=== PATIENT | female | born 1940 | race Caucasian/White ===

== ENCOUNTER 2018-01-25 10:13 | Inpatient (IN) | payer MEDICARE, SELFPAY ==
[2018-01-11 13:10] VITALS: BP 116/74; PULSE 63; RESP 14; TEMP 36.2; O2SAT 97; BMI 26.2
[2018-01-11 14:58] LABS: Absolute Lymphocyte Count 1.06 X10^3/ul (0.83-4.51); Absolute Neutrophil Count 2.6 X10^3/uL (2.0-7.7); Basophil# 0.02 X10^3/uL; Basophil% 0.5 % (0-1); Eosinophil# 0.11 X10^3/uL; Eosinophils% 2.7 % (0-5); Hematocrit 41.8 % (37-47); Hemoglobin 13.6 g/dl (12.0-15.0); Lymphocyte # 1.06 X10^3/ul (4.0); Lymphocyte % 26.2 % (19-41); Mean Corp Hgb Conc 32.5 g/gl (32-36); Mean Corpuscular Hgb 30.2 pg (27.0-32.0); Mean Corpuscular Volume 92.7 fL (81-99); Mean Platelet Vol. 9.9 fl (6.2-12.0); Monocyte# 0.26 X10^3/uL; Monocyte% 6.4 % (0-10); Neutrophil % 64.2 % (47-70); Platelet Count 204 K/mm3 (150-450); RBC Distribution Width CV 14.5 % (11.6-14.6); RBC Distribution Width SD 48.8 fl (35.1-43.9); Red Blood Count 4.51 M/mm3 (4.2-5.4); White Blood Count 4.1 K/mm3 (4.4-11.0)
[2018-01-11 15:02] LABS: POSITIVE COUNT NO; POSITIVE DIFFERENTIAL NO; POSITIVE MORPHOLOGY NO
[2018-01-11 15:29] LABS: Anion Gap 4 (5-15); BUN 15 mg/dL (7-18); BUN/Creat Ratio 18.4 RATIO (10-20); Calcium,Total 8.7 mg/dL (8.5-10.1); Chloride 104 mmol/L (98-107); Creatinine, Serum 0.81 mg/dL (0.55-1.02); EST Glomerular Filtration Rate 72 mL/min (>60); Est Glom Filt Rate - Afr Amer 87 mL/min (>60); Estimated Creatinine Clearance 49.43 ml/min; Glucose 83 mg/dL (74-106); Potassium 4.1 mmol/L (3.5-5.1); Sodium Level 139 mmol/L (136-145)
--- NOTE | 2018-01-11 15:39 | SDCEKG_ITS ---
Test Reason : Blood Pressure : / mmHG Vent. Rate : 061 BPM Atrial Rate : 060 BPM P-R Int : 000 ms QRS Dur : 128 ms QT Int : 428 ms P-R-T Axes : 000 110 012 degrees QTc Int : 430 ms Atrial fibrillation Right bundle branch block Abnormal ECG When compared with ECG of 27-MAR-2012 04:53, Atrial fibrillation has replaced Sinus rhythm Right bundle branch block is now Present Confirmed by BELKYS RIOS, WADE ([id number]), film editor AUDREY MAS ([id number]) on 01/13/2018 10:12:40 AM Referred By: Harshad Emerson Confirmed By:WADE RIZVI MD
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
[2018-01-25] VITALS (25 sets, daily range): BP systolic 73–106; BP diastolic 49–78; PULSE 54–78; RESP 16–18; TEMP 36.1–36.8; O2SAT 94–100; BMI 26.2; BMI 25.9
[2018-01-25 10:50] LABS: Prothrombin Time Fingerstick 11.9 SEC (11.9-14.4)
[2018-01-25] MEDS: Acetaminophen 500 MG Tablet 1000 MG PO ×2 (11:08→20:49)
[2018-01-25] MEDS: Lactated Ringers 1,000 ML 999 ML IV (12:03)
[2018-01-25] MEDS: Cefazolin 2 GM in 0.9% Normal Saline 100 ML IV (12:35)
--- NOTE | 2018-01-25 12:46 | RAD_ITS ---
STUDY: X-RAY - PELVIS AND RIGHT HIP REASON FOR EXAM: Female, 77 years old. TECHNIQUE: Radiological exam, hip, unilateral, 1 view. Fluoroscopy: 1 image 14.1 mGy 14.1 sec . COMPARISON: None. FINDINGS: There is a non-specific bowel gas pattern. Normal visualized soft tissue structures. Right hip arthroplasty in good alignment. There is no evidence of fracture. RAD/Hip 1 view with Pelvis IMPRESSION: Right hip arthroplasty in good alignment. Electronically Signed: León Sandoval MD at 7:08 EDT Tel , Service support ,
--- NOTE | 2018-01-25 13:59 | OP.PCM_ITS ---
Report of Operation Date of Procedure: 01/25/18 Pre-Operative Diagnosis: Right hip primary osteoarthritis Post-Operative Diagnosis: Right hip primary osteoarthritis Surgery/Procedure Performed:: Right direct anterior total hip replacement Description of Surgical Findings:: Stable hip with equal leg length merchant banker: Jacob Walker Type of Anesthesia:: Spinal Anesthesiologist: Ernesto Steel Special Medications: 2 g Ancef, 1 g TXA at incision, 1 g TXA closure, 10 mg Decadron, joint cocktail (5 mg Duramorph, 30 mL of 0.5% Ropivicaine, 1000 units of epinephrine, 30 mg of Toradol) Specimen's removed: Bone cuts Estimated Blood Loss (mL): 300 Fluids Replaced: 1200 mL crystalloid Description of Procedure: Components used: 1. Accolade 2 [place] femoral stem size 5 127? 2. Alvin trident acetabular shell size 54 mm 3. Alvin X3 polyethylene E 4. [place] Biolox delta 36mm, -5mm femoral head Brief history operative indications: 77 yo f who failed conservative measures for their hip osteoarthritis. X-rays were consistent with osteoarthritis including joint space narrowing, osteophyte formation and subchondral cysts. Total hip replacement was discussed with the patient with risks and benefits including but not limited to blood loss, DVTs, PEs, neurovascular damage, dislocation, general risks of anesthesia including loss of life. Patient demonstrated an understanding medical clearance is obtained the patient was consented for surgery. Procedure: On the date of procedure the patient's R hip was marked in the preoperative area. Patient was then taken back to the operating room where anesthesia assumed control of the C-spine and airway and administered anesthetic. Patient was transferred to the operating table and placed in the supine position. The hips were placed at the break of the bed and a sacral bump was placed. The R lower extremity was then prepped out in a sterile fashion using chlorhexidine while the surgeon scrubbed. The PA was vital in the positioning of the patient. Upon reentering the room the R lower extremity was draped in the standard orthopedic fashion and the incision was marked. A timeout was called and everyone agreed upon the side, the site, the procedure be performed, antibody given, and patient's identity. At this time incision was made through skin, subcutaneous tissue, and fat down to fascia. The fascia was then incised and the TFL was retracted laterally. A retractor was placed on the lateral border of the femoral neck. Attention was directed to the inferior portion of the approach and all crossing vessels were identified and appropriately coagulated. A retractor was then placed on the medial portion of the femoral neck. The anterior capsule was then cleared of all soft tissue and then H shaped capsulotomy was made. The retractors were then placed inside the capsule. The femoral neck was identified and a cleanup cut was made. At this time a power corkscrew was used to remove the femoral head. Attention was then turned toward the acetabulum where the soft tissues were appropriately retracted and the acetabulum was sequentially reamed to 53 mm. A 54 mm cup was then selected and impacted into place. 2 screws were placed orthogonally. Acetabular liner was impacted into place and locking mechanism was verified. The position of the acetabular cup was then verified under live fluoroscopy. Attention was then turned to the femur. Soft tissue releases on the medial and lateral femoral neck were appropriately done, the leg was externally rotated and lateralized. A [place] retractor was placed medially and proximally to the greater trochanter this allowed appropriate visualization and exposure of the femoral canal. [place] was then used to remove excess lateral bone. A canal finder and entry broach were used to open the proximal canal. Once we verified we were down the femoral canal we subsequently broached up to a size 4 femur. The appropriate neck was placed in the previously selected head was trialed with a -5 mm neck. Traction was pulled and the hip was reduced with internal rotation. Once it was appropriately reduced and stability was checked. There was minimal shuck, equal leg lengths and appropriate stability with hyperextension and external rotation as well as with 90? flexion and internal rotation. Fluoroscopy was then also used to verify the position of the components and leg lengths using the contralateral side for comparison. The trial components were then dislocated the proximal femur was again exposed and the components were removed from the wound. The final components were verified and opened. The wound was copiously irrigated out with normal saline. The acetabulum was checked for any residual debris. The final components were placed and impacted. Traction and internal rotation were again used to reduce the hip. After adequate reduction the hip remained stable with appropriate leg lengths. The final components were once again checked with live fluoroscopy and were found to be satisfactory. The wound was then copiously irrigated with normal saline once more, and hemostasis was obtained. Closure was then done using #1 Vicryl runner to close the fascia. A 2-0 vicryl interuppted sutures were used to close the subcutaneous skin. A 3-0 Monocryl and Steri-Strips were used for final skin closure. A Silverlon dressing was placed. Patient was awakened by anesthesia and transferred to the [facility]. Patient was then transferred to the PACU for recovery. Postoperative plan: Patient will get 24 hours postop antibiotics. Patient will get in-house physical therapy and will be weight-bear as tolerated. Patient will follow up in office in 2 weeks for a wound check and x-rays. Patient will restart Coumadin on postop day 1 During the course of the procedure the physician senior office support assistant sosa played a vital role. His intimate knowledge of my steps in the procedure aided in safe and expedient completion of the procedure. The PA played a vital rolls in positioning particularly in obtaining the appropriate positioning of the sacral bump. The PA was also vital in the retraction of soft tissues during the exposure and especially the femoral work as this is a vital part of the procedure to prevent complications and fractures. The PA was also vital and protecting soft tissues during times of bony cuts and reaming. He also played a vital role in closure with my direct supervision. The PA was also important during reduction and dislocation of the joint and trials intraoperatively. Grafts/Implants Used: Alvin Accolade 2 - Complications none - Admit VTE Documentation VTE Present on Admission: No VTE Mechan Device Prophylaxis: SCD's, Thigh High CAN Hose VTE Pharm Prophylaxis ordered?: Yes
--- NOTE | 2018-01-25 14:36 | RAD_ITS ---
STUDY: X-RAY - PELVIS AND RIGHT HIP REASON FOR EXAM: Female, 77 years old. Postoperative TECHNIQUE: Radiological exam, hip, unilateral, with pelvis when performed; 2 or 3 views. COMPARISON: None FINDINGS: Right total hip arthroplasty. The prosthetic components appear to be normally seated and articulated with expected postsurgical changes in the surrounding soft tissues. There are no significant degenerative changes of the left hip joint. Chronic appearing deformity of the left pubic rami. RAD/Hip Min 2 Views (Portable) IMPRESSION: Appropriate postsurgical features of right hip arthroplasty. Correlate operative technique. Electronically Signed: Lito Wright, at 15:07 EDT Tel , Service support ,
[2018-01-25] MEDS: Scopolamine 1mg/72hr Patch 1 PATCH TD (14:38)
--- NOTE | 2018-01-25 14:50 | SUR.PHASEI ---
Addendum entered by Angelique Baltazar 01/25/18 14:52: AT 1435 IN PACU, CONTINUE IVF BOLUS, PLACED IN [place], DR KAMERON VERGARA AT BEDSIDE, CONTINUE TO MONITOR. Original Note: AT 1417 ON ARRIVAL TO PACU, SBP 70'S SUSTAINED, REMAINS IN AFIB IN 60-70'S. MAC/SPINAL, UNABLE TO MOVE LEGS, HAS SENSATION ABOVE HIPS. DENIES CHEST PAIN OR HEAVINESS, SOB, OTHER C/O. IV FLUID BOLUS PER DR BLANCO ORDERS. CLAUDIA GUTIERREZ, NUT PROCESS HELPER, CALLED DR KAMERON VERGARA TO NOTIFY WHO REPORTED STATES TO CONTINUE IVF BOLUS AND HE WILL COME TO PACU TO EVAL.
[2018-01-25] MEDS: Calcium Carb/Vitamin D 1 TABLET Tablet PO (17:00)
[2018-01-25] MEDS: MELATONIN 3 MG TABLET PO (20:49)
[2018-01-25] MEDS: Senna/Docusate Sodium 1 Tablet 2 TABLET PO (20:49)
[2018-01-25] MEDS: Cefazolin 1 GM/50 ML BAG IV (20:49)
[2018-01-25] MEDS: Metoprolol Tartrate 25 MG Tablet 12.5 MG PO (20:53)
[2018-01-25] MEDS: Lactated Ringers 1,000 ML 125 ML IV (20:59)
[2018-01-26 02:40] VITALS: BP 102/64; PULSE 82; RESP 18; TEMP 36.6; O2SAT 95
[2018-01-26] MEDS: Ketorolac 15 MG/ML Vial IV ×3 (02:54→22:32)
[2018-01-26] MEDS: Acetaminophen 500 MG Tablet 1000 MG PO ×3 (05:13→22:32)
[2018-01-26] MEDS: Cefazolin 1 GM/50 ML BAG IV (05:15)
[2018-01-26 06:55] LABS: Hematocrit 33.4 % (37-47); Hemoglobin 10.8 g/dl (12.0-15.0); Mean Corp Hgb Conc 32.3 g/gl (32-36); Mean Corpuscular Hgb 30.2 pg (27.0-32.0); Mean Corpuscular Volume 93.3 fL (81-99); Mean Platelet Vol. 9.8 fl (6.2-12.0); Platelet Count 152 K/mm3 (150-450); RBC Distribution Width CV 14.2 % (11.6-14.6); RBC Distribution Width SD 48.4 fl (35.1-43.9); Red Blood Count 3.58 M/mm3 (4.2-5.4); White Blood Count 4.2 K/mm3 (4.4-11.0)
[2018-01-26 07:13] LABS: Scan Indicated on CBC? Y/N NO
[2018-01-26 07:32] LABS: Anion Gap 6 (5-15); BUN 11 mg/dL (7-18); BUN/Creat Ratio 16.7 RATIO (10-20); Chloride 106 mmol/L (98-107); Creatinine, Serum 0.66 mg/dL (0.55-1.02); EST Glomerular Filtration Rate 92 mL/min (>60); Est Glom Filt Rate - Afr Amer 111 mL/min (>60); Estimated Creatinine Clearance 40.04 ml/min; Glucose 100 mg/dL (74-106); Potassium 4.1 mmol/L (3.5-5.1); Sodium Level 141 mmol/L (136-145)
[2018-01-26] MEDS: Vitamin B Comp W-C Capsule 1 CAP PO (07:32)
[2018-01-26] MEDS: Cyanocobalamin 500 MCG Tablet 1000 MCG PO (07:32)
[2018-01-26] MEDS: Calcium Carb/Vitamin D 1 TABLET Tablet PO ×2 (07:32→17:54)
[2018-01-26] MEDS: Famotidine 20 MG Tablet PO (07:32)
[2018-01-26] MEDS: Multivitamins,Ther W-Minerals Tablet 1 TABLET PO (07:32)
[2018-01-26 08:25] VITALS: BP 105/55; PULSE 87; RESP 16; TEMP 37; O2SAT 95
--- NOTE | 2018-01-26 08:36 | PN.ORTHO_ITS ---
Subjective: The patient was sitting in bedside chair upon examination. Patient denies any chest pain, shortness of breath, dizziness, lightheadedness, nausea or vomiting , or calf pain. Pain is controlled on medications. No adverse overnight events. Overall patient is doing well. Patient does have concerns with going home due to living alone and having difficulty getting in and out of the bed. Patient has asked about going to rehab versus penitentiary facility. Objective: Vital signs stable and afebrile. Patient is able to plantarflex and dorsiflex actively. Sensation is intact to light touch to saphenous, sural, superficial and deep peroneal, and tibial distribution. Dressing is clean dry and intact. Negative Homans bilaterally, negative signs and symptoms of DVT. - Physical Exam General: Alert, Oriented x3, Cooperative, No apparent distress Vital Signs Temp Pulse Resp BP Pulse Ox 97.8 F 82 18 102/64 95 01/26/18 02:40 01/26/18 02:40 01/26/18 02:40 01/26/18 02:40 01/26/18 02:40 Oxygen Delivery Method CPAP Weight: 68.492 kg Body Mass Index (BMI) 25.9 Intake and Output for Last 24 Hours 01/24/18 01/25/18 01/26/18 23:59 23:59 23:59 Intake Total 4750 / 4750 1870 / 1870 Output Total 1240 / 1240 Balance 4750 / 4750 630 / 630 Laboratory Tests Past 24 Hrs 01/25/18 01/26/18 01/26/18 10:44 06:26 06:26 WBC 4.2 L RBC 3.58 L Hgb 10.8 L Hct 33.4 L MCV 93.3 MCH 30.2 MCHC 32.3 RDW 14.2 RDW Differential 48.4 H Plt Count 152 MPV 9.8 POC PT 11.9 INR 1.00 Sodium 141 Potassium 4.1 Chloride 106 Carbon Dioxide 29.0 Anion Gap 6 BUN 11 Creatinine 0.66 Estim Creat Clear Calc 40.04 Est GFR (MDRD) Af Amer 111 Est GFR (MDRD) Non-Af 92 BUN/Creatinine Ratio 16.7 Glucose 100 Calcium 8.0 L Medical Necessity - Tobacco Use Smoking Status: Never smoker Assessment/Plan All Active Problems (Last Updated 08/10/17 @ 10:36 by Estephania Francis) Positive colorectal cancer screening using Cologuard test (Acute) Left inguinal hernia (Acute) History of surgery on arm (Acute) Hx of umbilical hernia repair (Acute) History of repair of hiatal hernia (Acute) 1. S/P right total hip arthroplasty POD #1 2. Continue Pain Medications: Tylenol and tramadol 3. DVT Prophylaxis: Patient is placed back on her warfarin 4. PT/OT: Weightbearing as tolerated 5. H & H: 10.8/33.4, asymptomatic 6. Encouraged Incentive Spirometry 7. Disposition: Case management will be involved with possible placement at penitentiary facility versus rehab versus home discharge. Patient lives alone and has had difficulty and needing help getting in and out of bed.
--- NOTE | 2018-01-26 09:30 | CASEMGMT ---
DANNI ACEVEDO Face to Face with patient for initial transition planning/care coordination assessment. DANNI ACEVEDO introduced self and role at [facility]. Patient lying in bed, alert and oriented. Patient states that she lives alone and is concerned when she goes home. Patient would like to discharge home by is will to go to SNF is necessary. Patient states that her first choice is [facility]. Patient states that if she is not accepted at [facility] she would like to go home with [facility] if she is able. DANNI ACEVEDO confirmed with insurance that [facility] is in network. Patient states she has no further needs or concerns at this time. DANNI ACEVEDO updated YADI Ramirez regarding request for placement and patient choice of [facility]. Disposition Plan: [facility] pending acceptance and precert.
[2018-01-26] MEDS: 0.9% NaCl Peripheral Flush Adult/Peds IV ×2 (12:05→22:32)
[2018-01-26 12:19] VITALS: BP 122/76; PULSE 74
--- NOTE | 2018-01-26 13:00 | CASEMGMT ---
YADI faxed a referral to [facility]. Lelo HENDERSON LEAD LAYING AND GLUING MACHINE OPERATOR
[2018-01-26 14:20] VITALS: BP 116/64; PULSE 84; RESP 16; TEMP 36.4; O2SAT 98
[2018-01-26] MEDS: Senna/Docusate Sodium 1 Tablet 2 TABLET PO (14:29)
--- NOTE | 2018-01-26 14:42 | CASEMGMT ---
Social Work Note SW received message from Geena at [facility] informing this worker that they are able to accept pt. YADI placed a call to Geena and informed her to begin pre-cert as pt should be ready for discharge tomorrow. Geena states that she will submit pre-cert. Plan: Discharge to [facility] pending pre-cert Cheryle Ramirez GENERAL FARMWORKER, SAW TAILER
[2018-01-26 20:30] VITALS: BP 125/65; PULSE 87; RESP 18; TEMP 36.8; O2SAT 97
[2018-01-26 22:32] VITALS: PULSE 87
[2018-01-26] MEDS: Metoprolol Tartrate 25 MG Tablet 12.5 MG PO (22:32)
[2018-01-26] MEDS: MELATONIN 3 MG TABLET PO (22:32)
--- NOTE | 2018-01-26 23:39 | PCM.DC.THR ---
Discharge Diet: No Restrictions Discharge Activity: May Not Drive - while taking narcotic pain medications. May shower in (days): 1 - turn dressing away from water Ice area for (Minutes): 20 - every 1-2 hours while awake Weight Bearing Status: Weight bearing as tolerated Elevate: Operative Extremity Additional Activity Instructions:: Wear elastic stockings for 2 weeks. DO NOT use alcohol with narcotic pain medication. DO NOT make important decisions while taking narcotic medication. If you have problems with taking your medication (rash, itching, nausea, etc.) call the office at once. Call your doctor if your incision/area has: Increased Pain/ Swelling, Increased Redness, Foul Smelling Discharge Call your doctor if you observe: Fever of 101 or Higher Remove Dressing in (days):: 3 - okay to remove on 01/30/18 Additional Instructions: follow [facility] post-op instructions Tylenol primary for pain control and use Tramadol for only breakthrough pain Allergies/Adverse Reactions: Allergies oxycodone Adverse Reaction (Verified 08/10/17 10:37) PASSING OUT phenazopyridine HCl [From Pyridium] Adverse Reaction (Verified 08/10/17 10:37) Upset Stomach Medications to take at Discharge Amino Acids-Magnesium Sulfate 1 tab PO QHS 01/05/16 Calcium Carbonate/Vitamin D3 [Calcium 600-Vit D3 400 Caplet] 1 ea PO BID 01/05/16 Cholecalciferol (Vitamin D3) [Vitamin D3] 50,000 unit PO CEDILLO 01/05/16 Fluocinonide 1 applic TP BID PRN 01/05/16 Lactobacillus Acidophilus [Acidophilus] 1 ea PO DAILY 01/05/16 Loperamide HCl/Simethicone [Imodium Multi-Symptom Rel Cplt] 2 ea PO QHS PRN 01/05/16 Metoprolol Tartrate [Lopressor (beta christy)] 12.5 mg PO QHS 01/05/16 Metoprolol Tartrate [Lopressor (beta christy)] 25 mg PO DAILY 01/05/16 Multivit-Min/FA/Lycopen/Lutein [Centrum Silver Tablet] 1 ea PO DAILY 01/05/16 Warfarin [Coumadin] 3 mg PO QODAY 01/05/16 Warfarin [Coumadin] 4 mg PO QODAY 01/05/16 B Complex with Vitamin C [Vitamin B-Complex with Vit C] 1 ea PO DAILY 07/27/17 Cyanocobalamin (Vitamin B-12) [Vitamin B-12] 1,000 mcg SL DAILY 07/27/17 Famotidine/Ca Carb/Mag Hydrox [Pepcid Complete Tablet Chew] 1 each PO DAILY 01/11/18 Melatonin 3 mg PO QHS 01/11/18 Acetaminophen [Tylenol] 1,000 mg PO Q8 #90 tab 01/27/18 Clobetasol Propionate [Temovate Ointment] 1 applic TOPICAL BID PRN tube 01/27/18 Senna/Docusate Sodium [Senokot-S] 2 tab PO BID #20 tab 01/27/18 traMADol [Ultram] 50 - 100 mg PO Q6H PRN PRN 7 Days #60 tab 01/27/18 The following prescriptions were given: traMADol [Ultram] 50 - 100 mg PO Q6H PRN PRN 7 Days #60 tab PRN Reason: Mod-Severe Pain (4-04/26) Acetaminophen [Tylenol] 1,000 mg PO Q8 #90 tab Senna/Docusate Sodium [Senokot-S] 2 tab PO BID #20 tab Primary Care Physician: Lucian Izquierdo MD [Primary Care Provider] - Test Results: Test results from this visit will be discussed in further detail at your follow-up appointment, if applicable. Please Follow Up With: Jacob Walker PA-C When: 02/08/18 @ 9:15 am Please Follow Up With: Physical Therapy When: will need to schedule home health or out patient physical therapy
[2018-01-27 02:41] VITALS: BP 101/60; PULSE 75; RESP 16; TEMP 36.6; O2SAT 96
[2018-01-27] MEDS: Acetaminophen 500 MG Tablet 1000 MG PO ×2 (05:17→14:28)
[2018-01-27 06:23] LABS: Hematocrit 32.2 % (37-47); Hemoglobin 10.6 g/dl (12.0-15.0); Mean Corp Hgb Conc 32.9 g/gl (32-36); Mean Corpuscular Hgb 30.6 pg (27.0-32.0); Mean Corpuscular Volume 93.1 fL (81-99); Mean Platelet Vol. 9.9 fl (6.2-12.0); Platelet Count 150 K/mm3 (150-450); RBC Distribution Width CV 13.9 % (11.6-14.6); Red Blood Count 3.46 M/mm3 (4.2-5.4); White Blood Count 5.1 K/mm3 (4.4-11.0)
[2018-01-27 06:28] LABS: Scan Indicated on CBC? Y/N NO
--- NOTE | 2018-01-27 06:53 | PCM.PN.ORT ---
Subjective: The patient was sitting in bed upon examination. Patient denies any chest pain, shortness of breath, dizziness, lightheadedness, nausea or vomiting, or calf pain. Pain is controlled on medications. No adverse overnight events. Overall patient is doing very well. Patient is now wishing to try to go home. She states her daughter will be present with her until next Tuesday. She also states she has someone to help take her to appointments.. Objective: Vital signs stable and afebrile. Patient is able to plantarflex and dorsiflex actively. Sensation is intact to light touch to saphenous, sural, superficial and deep peroneal, and tibial distribution. Dressing is clean dry and intact. Negative Homans bilaterally, negative signs and symptoms of DVT. - Physical Exam General: Alert, Oriented x3, Cooperative, No apparent distress Vital Signs Temp Pulse Resp BP Pulse Ox 97.9 F 75 16 101/60 96 01/27/18 02:41 01/27/18 02:41 01/27/18 02:41 01/27/18 02:41 01/27/18 02:41 Oxygen Delivery Method CPAP Weight: 68.492 kg Body Mass Index (BMI) 25.9 Intake and Output for Last 24 Hours 01/25/18 01/26/18 01/27/18 23:59 23:59 23:59 Intake Total 4750 / 4750 2620 / 2620 1100 / 1100 Output Total 1940 / 1940 Balance 4750 / 4750 680 / 680 1100 / 1100 Laboratory Tests Past 24 Hrs 01/26/18 01/26/18 01/27/18 06:26 06:26 05:50 WBC 4.2 L 5.1 RBC 3.58 L 3.46 L Hgb 10.8 L 10.6 L Hct 33.4 L 32.2 L MCV 93.3 93.1 MCH 30.2 30.6 MCHC 32.3 32.9 RDW 14.2 13.9 RDW Differential 48.4 H 46.0 H Plt Count 152 150 MPV 9.8 9.9 Sodium 141 Potassium 4.1 Chloride 106 Carbon Dioxide 29.0 Anion Gap 6 BUN 11 Creatinine 0.66 Estim Creat Clear Calc 40.04 Est GFR (MDRD) Af Amer 111 Est GFR (MDRD) Non-Af 92 BUN/Creatinine Ratio 16.7 Glucose 100 Calcium 8.0 L Medical Necessity - Tobacco Use Smoking Status: Never smoker Assessment/Plan All Active Problems (Last Updated 08/10/17 @ 10:36 by Estephania Francis) Positive colorectal cancer screening using Cologuard test (Acute) Left inguinal hernia (Acute) History of surgery on arm (Acute) Hx of umbilical hernia repair (Acute) History of repair of hiatal hernia (Acute) 1. S/P right total hip arthroplasty POD #2 2. Continue Pain Medications: Tylenol and tramadol 3. DVT Prophylaxis: Patient is placed back on her warfarin, will need to follow-up with primary care physician to continue with INR check. 4. PT/OT: Weightbearing as tolerated 5. H & H: 10.6/32.2, asymptomatic 6. Encouraged Incentive Spirometry 7. Disposition: Orthopedically stable, plan is for discharge home today. Patient initially wanted to go to long-term facility but she has been doing very well with physical therapy and pain is well controlled. She now wishes to go home. I will have case management set up home health therapy versus outpatient physical therapy. Patient states she does have someone to help take her to appointments. Patient was instructed to contact her primary care physician and who manages her Coumadin. She should have her INR checked early next week.
--- NOTE | 2018-01-27 06:56 | PN.ORTHO_ITS ---
Subjective: The patient was sitting in bed upon examination. Patient denies any chest pain , shortness of breath, dizziness, lightheadedness, nausea or vomiting, or calf pain. Pain is controlled on medications. No adverse overnight events. Overall patient is doing very well. Patient is now wishing to try to go home. She states her daughter will be present with her until next Tuesday. She also states she has someone to help take her to appointments.. Objective: Vital signs stable and afebrile. Patient is able to plantarflex and dorsiflex actively. Sensation is intact to light touch to saphenous, sural, superficial and deep peroneal, and tibial distribution. Dressing is clean dry and intact. Negative Homans bilaterally, negative signs and symptoms of DVT. - Physical Exam General: Alert, Oriented x3, Cooperative, No apparent distress Vital Signs Temp Pulse Resp BP Pulse Ox 97.9 F 75 16 101/60 96 01/27/18 02:41 01/27/18 02:41 01/27/18 02:41 01/27/18 02:41 01/27/18 02:41 Oxygen Delivery Method CPAP Weight: 68.492 kg Body Mass Index (BMI) 25.9 Intake and Output for Last 24 Hours 01/25/18 01/26/18 01/27/18 23:59 23:59 23:59 Intake Total 4750 / 4750 2620 / 2620 1100 / 1100 Output Total 1940 / 1940 Balance 4750 / 4750 680 / 680 1100 / 1100 Laboratory Tests Past 24 Hrs 01/26/18 01/26/18 01/27/18 06:26 06:26 05:50 WBC 4.2 L 5.1 RBC 3.58 L 3.46 L Hgb 10.8 L 10.6 L Hct 33.4 L 32.2 L MCV 93.3 93.1 MCH 30.2 30.6 MCHC 32.3 32.9 RDW 14.2 13.9 RDW Differential 48.4 H 46.0 H Plt Count 152 150 MPV 9.8 9.9 Sodium 141 Potassium 4.1 Chloride 106 Carbon Dioxide 29.0 Anion Gap 6 BUN 11 Creatinine 0.66 Estim Creat Clear Calc 40.04 Est GFR (MDRD) Af Amer 111 Est GFR (MDRD) Non-Af 92 BUN/Creatinine Ratio 16.7 Glucose 100 Calcium 8.0 L Medical Necessity - Tobacco Use Smoking Status: Never smoker Assessment/Plan All Active Problems (Last Updated 08/10/17 @ 10:36 by Estephania Francis) Positive colorectal cancer screening using Cologuard test (Acute) Left inguinal hernia (Acute) History of surgery on arm (Acute) Hx of umbilical hernia repair (Acute) History of repair of hiatal hernia (Acute) 1. S/P right total hip arthroplasty POD #2 2. Continue Pain Medications: Tylenol and tramadol 3. DVT Prophylaxis: Patient is placed back on her warfarin, will need to follow -up with primary care physician to continue with INR check. 4. PT/OT: Weightbearing as tolerated 5. H & H: 10.6/32.2, asymptomatic 6. Encouraged Incentive Spirometry 7. Disposition: Orthopedically stable, plan is for discharge home today. Patient initially wanted to go to alf facility but she has been doing very well with physical therapy and pain is well controlled. She now wishes to go home. I will have case management set up home health therapy versus outpatient physical therapy. Patient states she does have someone to help take her to appointments. Patient was instructed to contact her primary care physician and who manages her Coumadin. She should have her INR checked early next week.
[2018-01-27] MEDS: Vitamin B Comp W-C Capsule 1 CAP PO (08:32)
[2018-01-27] MEDS: Multivitamins,Ther W-Minerals Tablet 1 TABLET PO (08:33)
[2018-01-27] MEDS: Calcium Carb/Vitamin D 1 TABLET Tablet PO (08:33)
[2018-01-27] MEDS: Cyanocobalamin 500 MCG Tablet 1000 MCG PO (08:33)
[2018-01-27 08:34] VITALS: BP 106/52; PULSE 67
[2018-01-27] MEDS: Metoprolol Tartrate 25 MG Tablet PO (08:34)
[2018-01-27] MEDS: Famotidine 20 MG Tablet PO (08:37)
[2018-01-27 08:38] VITALS: BP 106/57; PULSE 67; RESP 18; TEMP 37.1; O2SAT 95
[2018-01-27 10:00] VITALS: BP 121/66; PULSE 80; RESP 18; TEMP 36.7; O2SAT 95
--- NOTE | 2018-01-27 10:08 | CASEMGMT ---
DANNI ACEVEDO notified that patient is wishing to discharge home with C. DANNI ACEVEDO spoke with patient and patient wishes to have HHC through [facility]. DANNI ACEVEDO made referral to [facility]. DANNI ACEVEDO will continue to follow this patient and plan for a safe discharge.
--- NOTE | 2018-01-27 10:39 | CASEMGMT ---
Social Work Note RN KRISTINA Jackson informed this worker that pt will be discharged home with HHC. SW placed a call to Geena Santillan at [facility] and updated her that pt will be discharged home with HHC. Shasta states understanding. Plan: Pt to discharge home with HHC Cheryle Ramirez CLINICAL NURSE, TUBE BENDER
== END 2018-01-27 14:31 | disposition home health service (06) | DRG 470 ==
LOC: ACINP 10:13 → MS3 13:34
PROVIDERS: Admitting Provider Specialist; Family Provider Family Medicine; PCP Family Medicine; Visit Provider Specialist
PROC: 0SR904A Replacement of Right Hip Joint with Ceramic on Polyethylene Synthetic Substitute, Uncemented, Open Approach (ICD-10-PCS; CPT 27284; principal; 2018-01-25 12:35)
DX: M16.11 Unilateral primary osteoarthritis, right hip (principal); G47.30 Sleep apnea, unspecified; I34.1 Nonrheumatic mitral (valve) prolapse; E78.00 Pure hypercholesterolemia, unspecified; K21.9 Gastro-esophageal reflux disease without esophagitis; I10 Essential (primary) hypertension; I48.2 Chronic atrial fibrillation; Z79.01 Long term (current) use of anticoagulants
CPT/HCPCS: 36415; 36416; 73501; 73502; 76000; 80048; 85025; 85027; 85610; 87081; 93005; 97116; 97162; 97165; 97530; 97535; 99251; C1776; J7120; A4216; G0463

== ENCOUNTER → 2018-08-10 15:05 | Outpatient (CLI) | payer MEDICARE, SELFPAY ==
[2018-01-25 16:40] VITALS: BMI 25.9
[2018-08-10 17:36] LABS: Absolute Lymphocyte Count 0.99 X10^3/ul (0.83-4.51); Absolute Neutrophil Count 3.3 X10^3/uL (2.0-7.7); Basophil# 0.02 X10^3/uL; Basophil% 0.4 % (0-1); Eosinophil# 0.12 X10^3/uL; Eosinophils% 2.5 % (0-5); Hematocrit 43.6 % (37-47); Hemoglobin 14.3 g/dl (12.0-15.0); Lymphocyte # 0.99 X10^3/ul (4.0); Lymphocyte % 20.8 % (19-41); Mean Corp Hgb Conc 32.8 g/gl (32-36); Mean Corpuscular Hgb 30.2 pg (27.0-32.0); Mean Corpuscular Volume 92.2 fL (81-99); Mean Platelet Vol. 10.4 fl (6.2-12.0); Monocyte# 0.37 X10^3/uL; Monocyte% 7.8 % (0-10); Neutrophil # 3.26 X10^3/uL (2.7-7.7); Neutrophil % 68.3 % (47-70); Platelet Count 217 K/mm3 (150-450); RBC Distribution Width SD 49.6 fl (35.1-43.9); Red Blood Count 4.73 M/mm3 (4.2-5.4); White Blood Count 4.8 K/mm3 (4.4-11.0)
[2018-08-10 17:43] LABS: POSITIVE COUNT NO; POSITIVE DIFFERENTIAL NO; POSITIVE MORPHOLOGY NO
[2018-08-10 18:08] LABS: ALB/GLOB Ratio 1.2 RATIO (0.9-2.4); AST(SGOT) 17 U/L (15-37); Alanine Aminotransfer ALT/SGPT 26 U/L (13-56); Albumin, Serum 3.6 g/dL (3.2-5.0); Alkaline Phosphatase 71 U/L (45-117); Anion Gap 10 (5-15); BUN 17 mg/dL (7-18); BUN/Creat Ratio 19.7 RATIO (10-20); Chloride 102 mmol/L (98-107); Creatinine, Serum 0.86 mg/dL (0.55-1.02); EST Glomerular Filtration Rate 68 mL/min (>60); Est Glom Filt Rate - Afr Amer 82 mL/min (>60); Globulin 3.1 g/dL (2.2-4.2); Glucose 85 mg/dL (74-106); Potassium 4.2 mmol/L (3.5-5.1); Protein, Total 6.7 g/dL (6.4-8.2); Sodium Level 141 mmol/L (136-145); Thyroid Stim Hormone (TSH) 1.64 uIU/mL (0.358-3.74)
[2018-08-10 18:44] LABS: PTHIN 37.4 pg/mL (18.4-80.1)
== END ==
PROVIDERS: Family Provider Family Medicine; PCP Family Medicine; Visit Provider Family Medicine
DX: M85.80 Other specified disorders of bone density and structure, unspecified site (principal)
CPT/HCPCS: 36415; 80053; 83970; 84443; 85025

== ENCOUNTER → 2018-09-27 09:53 | Outpatient (CLI) | payer MEDICARE, SELFPAY ==
[2018-01-25 16:40] VITALS: BMI 25.9
--- NOTE | 2018-09-27 09:56 | ART_ITS ---
Reason For Study: PAD Procedure A bilateral lower extremity continuous wave Doppler with analog waveform analysis and ankle brachial indexes. Left Segmental Pressures Left brachial= 103mmHg. Left posterior tibial artery = 128mmHg. Left dorsalis pedis artery = 128mmHg. The left dorsalis pedis waveforms are triphasic. The left posterior tibial artery waveforms are triphasic. Right Segmental Pressures Right brachial= 121mmHg. Right posterior tibial artery = 134mmHg. Right dorsalis pedis artery = 127mmHg. The right dorsalis pedis waveforms are triphasic. The right posterior tibial artery waveforms are triphasic. Indices The right ankle brachial index by the dorsalis pedis is 1.1. The right ankle brachial index by the posterior tibial artery is 1.1. The right ankle brachial index by the posterior tibial artery post exercise is 1.1. The left ankle brachial index by the dorsalis pedis is 1.1. The left ankle brachial index by the posterior tibial artery is 1.1. The left posterior tibial artery index post exercise is 1.1. Interpretation Summary Triphasic Doppler waveforms are noted at ankle level bilaterally. Resting ankle-brachial indices are normal bilaterally. Following a 5-minute period of ambulation on a treadmill at 2 MPH and a 5% grade, which was well tolerated, ankle pressures augmented bilaterally, which is a normal physiological response. There is no evidence of significant atherosclerotic peripheral arterial occlusive disease in the lower extremities bilaterally based upon this resting and exercise arterial study. Ordering Physician: Lucian Izquierdo Referring Physician: Lucian Izquierdo Performed By: Ruth Howell [facility]
--- NOTE | 2018-09-27 11:14 | BD_ITS ---
STUDY: DUAL ENERGY X-RAY ABSORPTIOMETRY / DXA REASON FOR EXAM: Female, 77 years old. Early menopause. Loss of height. TECHNIQUE: Bone Mineral Density (BMD) measurements of lumbar spine and left hip were obtained. The patient is status post right hip replacement. COMPARISON: None. FINDINGS: Lumbar Spine (L1-L4): g/cm2 (0.936) / T-score (-2.2) / Z-score (-0.4) Findings are suggestive of osteopenia with a high fracture risk. Left Femur Total: g/cm2 (0.849) / T-score (-1.3) / Z-score (0.7) Left Femoral Neck: g/cm2 (0.742) / T-score (-2.1) / Z-score (0.0) BD/Dexa Bone Density Study IMPRESSION: The patient is considered osteopenic as outlined below according to World Dejon Organization (WHO) criteria with a high fracture risk. Reference Information: The T-score is the number of standard deviations above or below the standard which is normal for young adults at their peak bone mineral density. The World Health Organization (WHO) interprets the T-scores as follows: Above -1 Normal bone density Between -1 and -2.5 Osteopenia Equal to / or below -2.5 Osteoporosis As a practical clinical guideline, osteopenia may be graded as follows: Mild -1 through -1.5 Moderate -1.6 through -2.0 Severe -2.1 through -2.4 The Z-score is the number of standard deviations above or below age-matched controls. A Z-score of less than -1.5 would be considered abnormal. References: 1. NIH Osteoporosis and Related Bone Diseases http://www.osteo.org 2. International Society for Clinical Densitometry http://www.iscd.org 3. National Osteoporosis Foundation http://www.nof.org Electronically Signed: Wilver Ann, at 10:21 EDT , Service support ,
--- NOTE | 2018-09-27 11:16 | BI_ITS ---
MAMMOGRAPHY - BILATERAL SCREENING REASON FOR EXAM: Female, 77 years old. Routine annual screening examination. PERTINENT HISTORY: Non-contributory. TECHNIQUE: Digital bilateral breast nando (3D mammographic acquisition) in the CC and MLO projections. 2-D mediolateral oblique (MLO) and craniocaudad (CC) views of both breasts were obtained. CAD: Full Field Digital Mammography with Computer Added Detection was performed. COMPARISON: Comparison is made with prior outside examination dated March 26, 2014. FINDINGS: Breast Composition: The breasts are heterogeneously dense, which may obscure small masses. There are no dominant masses or suspicious calcifications. Stable 4.5 mm well-defined nodular density seen in the anterior lateral aspect of the right breast. This may represent a small cyst. No other significant abnormalities are identified. There has been no significant change since the prior study. BI/SCREENING MAMM (CAD), BILAT IMPRESSION: Stable bilateral screening mammogram. Yearly follow-up mammogram recommended. (A) ASSESSMENT CATEGORY: BIRADS Category 2: Benign. A letter regarding these results will be sent to the patient by the facility within 30 days. Approximately 10% of breast cancers are not detected by mammography. A normal mammogram should not delay biopsy of a clinically suspicious abnormality. [id number] Electronically Signed: Wilver Ann, at 14:24 EDT , Service support ,
== END ==
PROVIDERS: Family Provider Family Medicine; PCP Family Medicine; Referring Provider Family Medicine; Visit Provider Family Medicine
DX: I73.9 Peripheral vascular disease, unspecified (principal); M85.80 Other specified disorders of bone density and structure, unspecified site; Z12.31 Encounter for screening mammogram for malignant neoplasm of breast; Z78.0 Asymptomatic menopausal state
CPT/HCPCS: 77063; 77067; 77080; 93922

== ENCOUNTER → 2019-04-25 06:53 | Outpatient (CLI) | payer MEDICARE, SELFPAY ==
[2019-04-12 14:09] VITALS: BMI 29.9
--- NOTE | 2019-04-25 10:14 | STRESSREP ---
Stress Test Report Date: 04-25-19 Procedure: Pharmacologic stress nuclear imaging study Indications: Chest pain; atrial fibrillation Consent: Per the patient Procedure: The patient underwent pharmacologic (Regadenoson) evaluation with a peak heart rate of 78 beats per minute (55 %predicted maximal heart rate) and a peak blood pressure of 126/72 mmHg. The baseline ECG demonstrated atrial fibrillation; right bundle branch block pattern. The peak pharmacologic ECG demonstrated no obvious ECG changes. There were no additional cardiac dysrhythmias pretest, during pharmacologic infusion, or recovery. There was no complaint of chest discomfort during pharmacologic infusion or recovery. The examination was discontinued secondary to completion of protocol. Impression: 1. Pharmacologic (Regadenoson) evaluation 2. Peak pharmacologic ECG with continued atrial fibrillation with a right bundle branch block pattern. 3. There were no additional cardiac dysrhythmias pretest, during pharmacologic infusion, or recovery. 4. Nuclear images pending Myocardial perfusion imaging study: Technique: The patient was injected with 10.0 millicuries of technetium 99m Cardiolite and subsequently rest SPECT Cardiolite nuclear imaging was obtained in the horizontal long, vertical long, and short axis views. The patient underwent pharmacologic (Regadenoson) evaluation with a peak heart rate of 78 beats per minute (55 % percent predicted maximal heart rate) and a peak blood pressure of 126/72 mmHg. The patient was injected with 33.0 millicuries of technetium 99m Cardiolite and subsequently stress SPECT Cardiolite nuclear imaging was obtained in the horizontal long, vertical long, and short axis views. A gated Cardiolite study at peak stress was obtained. Interpretation: Rest and stress SPECT Cardiolite nuclear imaging status post realignment, normalization, and attenuation correction demonstrate and is compatible with extra cardiac/gastrointestinal tracer uptake near the inferior segments and a small area of subtle diminished tracer uptake near the apical segments without significant change between rest and stress. There is end systolic thickening and brightening. The gated Cardiolite study demonstrates myocardial thickening and inward wall motion. The reported LVEF is 65 %. Impression: 1. Rest and stress SPECT cardio light nuclear imaging demonstrate myocardial perfusion changes appearing compatible with the effects of extracardiac/gastrointestinal tracer uptake and physiologic apical thinning with no myocardial perfusion changes considered diagnostic for associated stress-induced myocardial ischemia. 2. The gated Cardiolite study reports an LVEF of 65 %. This note was generated with [employer] software. It may contain incorrect words, spelling, and punctuation that were not noted in checking the note before signing.
== END ==
PROVIDERS: Family Provider Family Medicine; PCP Family Medicine; Referring Provider Internal Medicine Cardiovascular Disease; Visit Provider Internal Medicine Cardiovascular Disease
DX: I48.20 Chronic atrial fibrillation, unspecified (principal); I34.0 Nonrheumatic mitral (valve) insufficiency; I10 Essential (primary) hypertension; E78.5 Hyperlipidemia, unspecified; R07.9 Chest pain, unspecified
CPT/HCPCS: 78452; 93017; A9500; A4216; J2785

== ENCOUNTER → 2019-08-18 10:33 | Outpatient (CLI) | payer MEDICARE, SELFPAY ==
[2019-04-12 14:09] VITALS: BMI 29.9
[2019-08-18 11:01] LABS: Absolute Lymphocyte Count 0.96 X10^3/uL (0.83-4.51); Absolute Neutrophil Count 2.6 X10^3/uL (2.0-7.7); Basophil# 0.03 X10^3/uL; Basophil% 0.7 % (0-1); Eosinophil# 0.11 X10^3/uL; Eosinophils% 2.7 % (0-5); Hematocrit 45.9 % (37-47); Hemoglobin 14.8 g/dL (12.0-15.0); Lymphocyte # 0.96 X10^3/ul (4.0); Lymphocyte % 23.8 % (19-41); Mean Corp Hgb Conc 32.2 g/dL (32-36); Mean Corpuscular Hgb 30.1 pg (27.0-32.0); Mean Corpuscular Volume 93.3 fL (81-99); Mean Platelet Vol. 10.1 fl (6.2-12.0); Monocyte# 0.33 X10^3/uL; Monocyte% 8.2 % (0-10); NRBC Flagged by Analyzer 0 % (0-5); Neutrophil # 2.59 X10^3/uL (2.7-7.7); Neutrophil % 64.4 % (47-70); Platelet Count 188 K/mm3 (150-450); RBC Distribution Width CV 14.3 % (11.6-14.6); RBC Distribution Width SD 48.6 fl (35.1-43.9); Red Blood Count 4.92 M/mm3 (4.2-5.4)
[2019-08-18 11:15] LABS: International Normalized Ratio 1.9
[2019-08-18 11:37] LABS: ALB/GLOB Ratio 1.1 RATIO (0.9-2.4); AST(SGOT) 18 U/L (15-37); Alanine Aminotransfer ALT/SGPT 25 U/L (13-56); Albumin, Serum 3.7 g/dL (3.2-5.0); Alkaline Phosphatase 71 U/L (45-117); Anion Gap 2 (5-15); BUN 16 mg/dL (7-18); BUN/Creat Ratio 16.3 RATIO (10-20); Calcium,Total 9.3 mg/dL (8.5-10.1); Chloride 108 mmol/L (98-107); Creatinine, Serum 0.98 mg/dL (0.55-1.02); EST Glomerular Filtration Rate 58 mL/min (>60); Est Glom Filt Rate - Afr Amer 70 mL/min (>60); Ferritin 20 ng/mL (8-252); Globulin 3.4 g/dL (2.2-4.2); Glucose 59 mg/dL (74-106); Potassium 3.9 mmol/L (3.5-5.1); Protein, Total 7.1 g/dL (6.4-8.2); Sodium Level 141 mmol/L (136-145); Thyroid Stim Hormone (TSH) 2.05 uIU/mL (0.358-3.74)
[2019-08-22 14:01] LABS: Immunoglobulin E 15 IU/mL (6-495)
== END ==
PROVIDERS: PCP Family Medicine; Referring Provider Family Medicine; Visit Provider Family Medicine
DX: G47.33 Obstructive sleep apnea (adult) (pediatric) (principal); I48.20 Chronic atrial fibrillation, unspecified; J30.0 Vasomotor rhinitis
CPT/HCPCS: 36415; 80053; 82728; 82785; 84443; 85025; 85610

== ENCOUNTER → 2020-08-11 13:47 | Outpatient (CLI) | payer MEDICARE, SELFPAY ==
[2020-07-28 15:36] VITALS: BMI 25.7
--- NOTE | 2020-08-11 13:51 | ECHOD_ITS ---
Reason For Study: Aortic Root Dilitation Procedure This was a 2D Doppler, Color Flow transthoracic echocardiogram. Contrast injection was performed. Exam performed in department. Left Ventricle Normal LV size. D shaped septum in systole and diastole. Sigmoid septum. Left ventricular systolic function is normal. The estimated ejection fraction is 65 %. Diastolic function is indeterminate. No regional wall motion abnormalities noted. Right Ventricle Moderately dilated right ventricle. Normal systolic function. Atria The left atrium is severely enlarged. The right atrium is moderately enlarged. No doppler evidence for ASD. Mitral Valve There is no mitral annular calcification. Mild diffuse mitral valve thickening. Mild mitral valve prolapse. Mild (1+) mitral valve insufficiency. Tricuspid Valve Normal tricuspid valve. Moderate (2+) tricuspid valve insufficiency. Right ventricular systolic pressure estimated to be 40 mmHg. Aortic Valve Trisinus/trileaflet aortic valve. Normal aortic valve. Pulmonic Valve The pulmonic valve is not well visualized. Mild (1+) pulmonic valve insufficiency. Great Vessels Mildly dilated aortic root. Pericardium/Pleural No pericardial effusion. MMode/2D Measurements & Calculations LVIDd: 3.7 cm IVSd: 0.78 cm Ao root diam: 4.2 cm LVIDs: 2.3 cm LVPWd: 0.91 cm LA dimension: 4.3 cm RVDd: 4.2 cm FS: 39.9 % LAV(MOD-bp): 97.4 ml LA A4 area: 29.6 cm2 RA A4 area: 20.1 cm2 LAV(MOD-bp) Indexed: 56.3 ml/m2 LAV(MOD-sp2): 83.7 ml LAV(MOD-sp4): 107.8 ml Time Measurements MV dec time: 0.22 sec Doppler Measurements & Calculations MV E max dhaval: 88.3 cm/sec Lat Peak E' Dhaval: 17.2 cm/sec Med Peak E' Dhaval: 9.7 cm/sec MV A max dhaval: 34.6 cm/sec E/E' lat: 5.1 E/E' med: 9.1 MV E/A: 2.6 Ao V2 max: 111.0 cm/sec LV V1 max: 85.4 cm/sec MR max dhaval: 446.9 cm/sec Ao max P.9 mmHg LV V1 max P.9 mmHg MR max P.9 mmHg PA V2 max: 117.7 cm/sec TR max dhaval: 306.0 cm/sec TR max P.4 mmHg Interpretation Summary Left ventricular systolic function is normal. The estimated ejection fraction is 65 %. D shaped septum in systole and diastole. Sigmoid septum. Moderately dilated right ventricle. The left atrium is severely enlarged. The right atrium is moderately enlarged. Mild diffuse mitral valve thickening. Mild mitral valve prolapse. Mild (1+) mitral valve insufficiency. Moderate (2+) tricuspid valve insufficiency. Mild (1+) pulmonic valve insufficiency. Mildly dilated aortic root. Right ventricular systolic pressure estimated to be 40 mmHg. Diastolic function is indeterminate. Ordering Physician: Fili Pressley Referring Physician: Lucian Izquierdo Performed By: Paresh Crowley RCS
== END ==
PROVIDERS: PCP Family Medicine; Referring Provider Internal Medicine Cardiovascular Disease; Visit Provider Internal Medicine Cardiovascular Disease
DX: I77.819 Aortic ectasia, unspecified site (principal); I34.0 Nonrheumatic mitral (valve) insufficiency; I48.21 Permanent atrial fibrillation; E78.5 Hyperlipidemia, unspecified; I10 Essential (primary) hypertension
CPT/HCPCS: 93306

== ENCOUNTER 2020-08-18 20:32 | Emergency (ER) | payer MEDICARE, SELFPAY ==
[2020-07-28 15:36] VITALS: BMI 25.7
[2020-08-18 20:33] VITALS: BP 157/89; PULSE 84; RESP 28; TEMP 36.1; O2SAT 95; BMI 26.9
--- NOTE | 2020-08-18 20:38 | EKG12_ITS ---
Test Reason : CHEST PAIN Blood Pressure : / mmHG Vent. Rate : 072 BPM Atrial Rate : 079 BPM P-R Int : 000 ms QRS Dur : 136 ms QT Int : 404 ms P-R-T Axes : 000 113 015 degrees QTc Int : 442 ms Atrial fibrillation Right bundle branch block Abnormal ECG Confirmed by BELKYS RIOS, WADE ([id number]), newspaper copy editor ZEFERINO TRIVEDI ([id number]) on 08/20/2020 1:31:46 PM Referred By: BRENT Confirmed By:WADE RIZVI MD
--- NOTE | 2020-08-18 20:47 | US_ITS ---
STUDY: ABDOMINAL ULTRASOUND - RIGHT UPPER QUADRANT REASON FOR VISIT: Female, 79 years old CHEST PAIN TECHNIQUE: Ultrasound evaluation of the right upper quadrant was performed with real-time and static marr-scale imaging. TECHNICAL QUALITY: Adequate. COMPARISON: None. FINDINGS: Liver: The liver measures 13.9 cm. There is normal echogenicity of the liver. The bile ducts are within normal limits. There is hepatic color flow. The direction of portal flow is hepatopetal. Probable up to 6 mm hepatic cysts. Gallbladder: Moderately distended gallbladder. The gallbladder wall measures 2 mm. There is a negative sonographic Mead''s sign. There is trace pericholecystic fluid. There is cholelithiasis and sludge. Common Bile Duct (C.B.D.): The common bile duct measures 10 mm. Pancreas: Normal size of the head, body and tail of the pancreas. There is normal echogenicity of the pancreas. There is no demonstrated pancreatic mass or cyst. Borderline pancreatic duct. Right Kidney: Normal size of the right kidney. The right kidney measures 9.1 x 3.5 x 4.5 cm. Normal renal cortex. The right cortex measures 1.2 cm. There is no demonstrated renal mass or cyst. There is no right hydronephrosis. US/Abdomen Limited IMPRESSION: Cholelithiasis and gallbladder sludge. Trace pericholecystic fluid Biliary dilatation. Borderline pancreatic ductal prominence. Electronically Signed: Ricci Navarrete DO at 23:01 EST Tel [phone], Service support ,
--- NOTE | 2020-08-18 20:50 | ED.VISSUMM ---
- ER Visit Summary Date of Service: 08/18/20 Chief Complaint: Upper abdominal/chest pain History of Present Illness: The patient is a [address] Pressley and Dr. Lucian Izquierdo. She reports that she has upper abdominal pain and chest pain that began at 2:00 this afternoon while she was eating. States it is a continuous tightness that is 5-10 severity currently and at worst. Is worsened by eating lunch. Is relieved by nothing. She reports it does make her feel slightly short of breath. She denies any radiation to her neck, shoulders, or back. She denies any associated nausea, vomiting, or diaphoresis. Patient reports that she had this on August 06 and again last week. Seems to be always when she is eating lunch. She denies any intolerance to specific foods. No intolerance to fatty or spicy foods. She does report she has a history of a hiatal hernia. Physical Examination: Vitals: Stable. Afebrile. General: Well-nourished and well-developed. Head: Normocephalic atraumatic. Neck: Supple, no lymphadenopathy. No JVD. Nontender. Cardiovascular: Irregularly irregular with a 2 out of 6 systolic murmur. Respiratory: No respiratory distress. Clear to auscultation bilaterally. Abdominal: Soft, mild epigastric and minimal right upper quadrant tenderness to palpation, nondistended, normal bowel sounds. No guarding, rebound, or peritoneal signs. Back: Nontender. Extremities: Nontender, 1+ pitting edema lower extremities bilaterally. Skin: Normal color, no rash. Neurologic: Alert and oriented ?3. Cranial nerves II through XII are intact. Normal strength and sensation. Psych: Normal affect. Test Results: EKG is A. fib at 72 with a right bundle matt block. Is unchanged from March 2019. CBC shows segment neutrophils 81 lymphocytes of 11. Chem-7 shows a BUN of 22 and glucose 107. Troponin is negative. LFTs show an ALT of 112, AST of 129, alk phos of 111, total bili of 2.78, direct bili 1.28. Lipase is 106. INR is 1.9. Her last total bili was 1.7 in August 2019. Clinical Impression(s) from Imaging Studies Chest X-Ray 08/18/20 21:00 IMPRESSION: 1. Question COPD. 2. Density over the left hilar region thought to be due to overlying costal cartilaginous junction. 3. Cardiomegaly. Electronically Signed: Bhavin Rosario DO at 21:57 EST Tel [phone], Service support , Right upper quadrant ultrasound is read as normal by the radiologist. Her common bile duct is 10 mm. She has a moderately distended gallbladder. The gallbladder wall measures 2 mm. Negative Mead sign. Trace pericholecystic fluid. There is cholelithiasis and sludge. Emergency Department Course and Treatment: Patient had an IV placed. She was given a dose of aspirin p.o. She was given a GI cocktail. She is resting comfortably and would like to go home. Treatment Plan: The patient was discussed with Dr. Pratt. She will be discharged with Prilosec and outpatient orders for repeat liver panel in 2 days. Instructed follow-up Dr. Pratt in the office in 2 days for another exam. Return to the emergency department for any worsening symptoms. Disposition: To home in improved and stable condition. Impression: 1. Cholelithiasis. 2. Elevated total bilirubin. 3. Elevated direct bilirubin. 4. Transaminitis. 5. Coagulopathy on Coumadin. This note was generated with [employer] dictation software. It may contain incorrect words, spelling, and punctuation that were not noted in review of the chart prior to signing ED Disposition - Plan for ED Patient: Instructions: ED Gallstones with Biliary Colic Prescriptions: Omeprazole [Prilosec] 20 mg PO DAILY #30 capsule Ondansetron [Zofran Odt] 4 mg PO Q8H PRN PRN #10 tab PRN Reason: Nausea Referrals: Pam Pratt MD [STAFF PHYSICIAN] - 2 Days
[2020-08-18] MEDS: Aspirin 81 MG TAB.CHEW 324 MG PO (20:53)
[2020-08-18] MEDS: Mag Hydrox/Al Hydrox/Simeth 30 ML UDC PO (20:54)
[2020-08-18 20:57] LABS: Absolute Lymphocyte Count 0.74 X10^3/uL (0.83-4.51); Absolute Neutrophil Count 5.3 X10^3/uL (2.0-7.7); Basophil# 0.02 X10^3/uL; Basophil% 0.3 % (0-1); Eosinophil# 0.06 X10^3/uL; Eosinophils% 0.9 % (0-5); Hematocrit 43.5 % (37-47); Hemoglobin 13.9 g/dL (12.0-15.0); Lymphocyte # 0.74 X10^3/ul (4.0); Lymphocyte % 11.4 % (19-41); Mean Corpuscular Hgb 29.8 pg (27.0-32.0); Mean Corpuscular Volume 93.1 fL (81-99); Mean Platelet Vol. 9.6 fl (6.2-12.0); Monocyte# 0.43 X10^3/uL; Monocyte% 6.6 % (0-10); NRBC Flagged by Analyzer 0 % (0-5); Neutrophil # 5.25 X10^3/uL (2.7-7.7); Neutrophil % 80.6 % (47-70); Platelet Count 201 K/mm3 (150-450); RBC Distribution Width CV 14.1 % (11.6-14.6); RBC Distribution Width SD 48.1 fl (35.1-43.9); Red Blood Count 4.67 M/mm3 (4.2-5.4); White Blood Count 6.5 K/mm3 (4.4-11.0)
--- NOTE | 2020-08-18 21:00 | RAD_ITS ---
STUDY: X-RAY CHEST REASON FOR EXAM: Female, 79 years old. His pain beginning today. TECHNIQUE: Single AP portable view of the chest. COMPARISON: 03/25/2012. FINDINGS: Improved inspiratory effort. Lungs are mildly hyperexpanded. There is a vague density in the left perihilar region thought to be secondary to the overlying costocartilage junction. Lungs are otherwise clear. There is no demonstrated pleural abnormality. The heart is enlarged. Normal mediastinum and maurisio. Normal visualized pulmonary arteries. There is atherosclerotic calcification of the aortic arch with tortuosity. The thoracic spine is obscured by the mediastinum. There are healed left rib fractures. There is no demonstrated abnormality of the visualized soft tissue structures of the upper abdomen. RAD/Chest 1 View (Portable) IMPRESSION: 1. Question COPD. 2. Density over the left hilar region thought to be due to overlying costal cartilaginous junction. 3. Cardiomegaly. Electronically Signed: Bhavin Rosario DO at 21:57 EST Tel [phone], Service support ,
[2020-08-18 21:07] LABS: International Normalized Ratio 1.9; Prothrombin Time (Protime)PT. 21.6 SECONDS (11.7-14.9)
[2020-08-18 21:14] LABS: AST(SGOT) 129 U/L (15-37); Alanine Aminotransfer ALT/SGPT 112 U/L (13-56); Albumin, Serum 3.6 g/dL (3.2-5.0); Alkaline Phosphatase 111 U/L (45-117); Anion Gap 5 (5-15); BUN 22 mg/dL (7-18); BUN/Creat Ratio 23.8 RATIO (10-20); Bilirubin, Direct 1.28 mg/dL (0.00-0.30); Calcium,Total 9.3 mg/dL (8.5-10.1); Chloride 103 mmol/L (98-107); Creatinine, Serum 0.92 mg/dL (0.55-1.02); EST Glomerular Filtration Rate 62 mL/min (>60); Est Glom Filt Rate - Afr Amer 75 mL/min (>60); Estimated Creatinine Clearance 42.12 ml/min; Globulin 3.5 g/dL (2.2-4.2); Glucose 107 mg/dL (74-106); Lipase 106 U/L (73-393); Potassium 4.1 mmol/L (3.5-5.1); Protein, Total 7.1 g/dL (6.4-8.2); Sodium Level 137 mmol/L (136-145)
[2020-08-18 21:32] VITALS: BP 131/73; PULSE 71; RESP 17; O2SAT 97
[2020-08-18 22:37] VITALS: BP 124/76; PULSE 79; RESP 18; O2SAT 97
[2020-08-18 23:03] VITALS: BP 127/75; PULSE 75; RESP 16; O2SAT 96
[2020-08-19 00:20] VITALS: BP 125/75; PULSE 72; RESP 14; RESP 16; O2SAT 99
[2020-08-20 05:07] LABS: HEPATITIS B SURFACE AG Negative (Negative); Hepatitis A IgM Antibody Negative (Negative); Hepatitis B Core AB IgM Negative (Negative)
[2020-08-20 08:24] LABS: Hep C Antibodies 0.1 s/co ratio (0.0-0.9)
== END 2020-08-19 00:21 | disposition home or self-care (01) ==
PROVIDERS: Emergency Provider Emergency Medicine; PCP Family Medicine
DX: K80.20 Calculus of gallbladder without cholecystitis without obstruction (principal); R79.89 Other specified abnormal findings of blood chemistry; D68.9 Coagulation defect, unspecified; I10 Essential (primary) hypertension; J44.9 Chronic obstructive pulmonary disease, unspecified; K21.9 Gastro-esophageal reflux disease without esophagitis; Z79.01 Long term (current) use of anticoagulants
CPT/HCPCS: 71045; 76705; 80048; 80074; 80076; 83690; 84484; 85025; 85610; 93005; 99285; A4216

== ENCOUNTER → 2020-08-20 15:26 | Outpatient (CLI) | payer MEDICARE, SELFPAY ==
[2020-08-18 20:33] VITALS: BMI 26.9
[2020-08-20 16:12] LABS: AST(SGOT) 136 U/L (15-37); Alanine Aminotransfer ALT/SGPT 260 U/L (13-56); Albumin, Serum 3.5 g/dL (3.2-5.0); Alkaline Phosphatase 166 U/L (45-117); Bilirubin, Direct 0.85 mg/dL (0.00-0.30); Globulin 3.9 g/dL (2.2-4.2); Protein, Total 7.4 g/dL (6.4-8.2)
== END ==
PROVIDERS: PCP Family Medicine; Referring Provider Surgery; Visit Provider Surgery
DX: R17 Unspecified jaundice (principal)
CPT/HCPCS: 36415; 80076

== ENCOUNTER 2020-08-21 14:53 | Observation (INO) | payer MEDICARE, SELFPAY ==
[2020-08-21] VITALS (9 sets, daily range): BP systolic 101–122; BP diastolic 52–77; PULSE 76–84; RESP 14–83; TEMP 36.4–36.9; O2SAT 94–97; BMI 24.9; BMI 25.5
--- NOTE | 2020-08-21 09:26 | PCM.HP.BLA ---
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 Is patient in pain?: Yes (abdominal pain ) Pain scale (1-10): 4 Allergies oxycodone Adverse Reaction (Verified 08/21/20 08:47) PASSING OUT phenazopyridine HCl [From Pyridium] Adverse Reaction (Verified 08/21/20 08:47) Upset Stomach Medications Calcium Carbonate/Vitamin D3 [Calcium 600-Vit D3 400 Caplet] 1 ea PO BID 01/05/16 [History Confirmed 08/21/20] Cholecalciferol (Vitamin D3) [Vitamin D3] 50,000 unit PO CEDILLO 01/05/16 [History Confirmed 08/21/20] Loperamide HCl/Simethicone [Imodium Multi-Symptom Rel Cplt] 2 ea PO QHS PRN 01/05/16 [History Confirmed 08/21/20] Multivit-Min/FA/Lycopen/Lutein [Centrum Silver Tablet] 1 ea PO MOWEFR 01/05/16 [History Confirmed 08/21/20] Warfarin [Coumadin] 3 mg PO MOWEFR 01/05/16 [History Confirmed 08/21/20] Warfarin [Coumadin] 4 mg PO SUTUTHSA 01/05/16 [History Confirmed 08/21/20] omega-3 fatty acids 1,000 mg capsule 1,000 mg PO DAILY 02/20/19 [History Confirmed 08/21/20] metoprolol tartrate 25 mg tablet 12.5 mg PO BID tab 04/12/19 [History Confirmed 08/21/20] acetaminophen 500 mg tablet 1,000 mg PO Q8 PRN tab 07/28/20 [History Confirmed 08/21/20] antiarthritic combination no.2 900 mg tablet 900 mg PO DAILY tab 07/28/20 [History Confirmed 08/21/20] famotidine 20 mg tablet 20 mg PO BID 07/28/20 [History Confirmed 08/21/20] lactobacillus combination no.9 4 billion cell capsule 4,000 mmu cells PO DAILY 07/28/20 [History Confirmed 08/21/20] melatonin 3 mg disintegrating tablet 3 mg PO QHS PRN 07/28/20 [History Confirmed 08/21/20] Magnesium Oxide [Magnesium] 400 mg PO QHS 08/18/20 [History Confirmed 08/21/20] Omeprazole [Prilosec] 20 mg PO DAILY #30 cap 08/18/20 [Rx Confirmed 08/21/20] Ondansetron [Zofran Odt] 4 mg PO Q8H PRN PRN #10 tab 08/18/20 [Rx Confirmed 08/21/20] Vit No.130/Iron/Folic [ Tablet] 1 ea PO SUTUTHSA 08/18/20 [History Confirmed 08/21/20] PFSH Medical History PVD (peripheral vascular disease) (Chronic) Non-rheumatic mitral regurgitation (Chronic) RBBB (right bundle branch block) (Acute) Dilatation of aorta (Chronic) Atrial fibrillation, permanent (Chronic) ERICA on CPAP (Chronic) Benign essential hypertension (Chronic) COPD (chronic obstructive pulmonary disease) (Chronic) GERD (gastroesophageal reflux disease) (Chronic) HLD (hyperlipidemia) (Chronic) Positive colorectal cancer screening using Cologuard test (Acute) Diverticulosis of colon without diverticulitis (Chronic) Left inguinal hernia (Resolved) Surgical History History of repair of hiatal hernia (Resolved) History of surgery on arm (Resolved) Hx of umbilical hernia repair (Resolved) S/P inguinal hernia repair (Resolved) Family History Mother Diabetes Brother Diabetes Social History (Updated 08/21/20 @ 09:[address] Marck Garcia MD) Smoking Status: Never smoker second hand exposure: No alcohol intake: current substance use type: does not use caffeine: Yes what type of physical activity do you participate in: walking, weight training frequency: 3-4 times per week seatbelt use: always HPI HPI HPI: DAT GIFFORD, is a 79 F who presents to the office today for HPI HPI HPI: DAT GIFFORD, is a 79 F who presents to the office today for Abdominal pain. The patient was in the emergency room 3 days ago with abdominal pain and labs showed elevated liver enzymes. She also had a dilated common duct as well as cholelithiasis and sludge in the gallbladder. She presents back for follow-up today after having repeat labs and says she still having discomfort across her epigastric area. ROS General General: Yes fatigue; no weight change, appetite, colon cancer, breast cancer or weakness HEENT HEENT: No difficulty swallowing, eye injury, eye surgery, swollen glands or hoarseness Endo Endocrine: No thyroid disease, diabetes mellitus, thyroid cancer, Hair loss, heat intolerance or cold intolerance Skin Skin: No rash or changing moles Musc Musculoskeletal: Yes arthritis; no back problems, rheumatoid arthritis, gout or joint pain Cardio Cardiovascular: Yes atrial fibrillation; no murmur, pacemaker, heart disease, high blood pressure, heart attack, heart stent, palpitations, shortness of breat with exertion or chest pain Psych Psychiatric: No anxiety or hearing voices Resp Respiratory: No shortness of breath, Yes sleep apnea, No cough, No COPD, No asthma, No emphysema, No wheezing Gastro Gastrointestinal: Yes abdominal pain, No nausea or vomiting, Yes diarrhea, No constipation, Yes blood in stool, No acid reflux, Yes hemorrhoids, No ulcers, No gallbladder problem, No black,tarry stools Victor Manuel Hematologic: Yes blood thinners, No blood disorders, No bleeding, No anemia, No blood clots Neuro Neurologic: No system reviewed and no additional complaints, except as docu, No as per HPI, No abnormal walking, No abnormal hearing, No abnormal movements, No abnormal speech, No behavioral changes, No burning sensations, No confusion, No seizure-like activity, No unsteadiness, No dizziness, No localized weakness, No frequent falls, No headache(s), No lack of coordination, No loss of vision, No memory loss, Yes numbness, No other visual disturbances, No radiating pain, No restless legs, No sensory deficit, No fainting, No tingling, No tremor(s), No weakness, No other Exam Const General: cooperative Orientation: alert, oriented x3 Resp Effort & Inspection: normal respiratory effort Auscultation: clear to auscultation bilaterally Cardio Rate: regular rate Rhythm: regular rhythm Heart Sounds: no murmurs GI Inspection: non-distended Palpation: soft, nontender Assessment & Plan Problems 1. Obstructive jaundice K83.1 Plan The patient was in the emergency room 3 days ago with elevated liver enzymes and a dilated common duct as well as positive cholelithiasis. She had a normal white count at that time with a left shift. She was sent home and presented today after repeat LFTs show increase. The patient is describing epigastric discomfort which is not exacerbated by palpation. She had more elevated liver enzymes today during labs and has consistent pain. I believe the patient has obstructive jaundice due to choledocholithiasis. I recommended ERCP to the patient. I discussed her labs with her and showed her her ultrasound images as well as her bile duct. I discussed ERCP with her in detail. I discussed the risks including but not limited to bleeding, infection, perforation of the bile duct or bowel, pancreatitis. The patient would like to proceed. I will have the patient come back today for ERCP in the OR and admitted for observation following the procedure. The patient has a this weekend and would like to attend and I will plan for outpatient cholecystectomy to prevent this happening in the future next week. We discussed the current risks associated with COVID-19. While it is understood that there is a community spread of COVID-19, the risk of hossein COVID-19 while at [facility] ([facility] [place]) is very low; however, the risk cannot be completely mitigated because of the community spread of the disease. We discussed in detail the risk of exposure to and/or potential harm posed by the COVID-19 virus with having a surgery/procedure at this time versus the risk of delaying the surgery/procedure. It is not possible to know either the risk of delaying the surgery or procedure or chance of getting an infection with perfect accuracy, but a joint decision was made to proceed at this time with the scheduled surgery/procedure as indicated on the consent form. Patient was notified that we will need to comply with any screening or testing [facility] [place] wishes to perform or that surgery may be delayed for any positive results. Marck Garcia MD Pager: [facility] [place] [address] [place] [address], [address] [place] [address] Office:
[2020-08-21 13:21] LABS: Prothrombin Time Fingerstick 27.6 SEC (11.9-14.4)
[2020-08-21] MEDS: Lactated Ringers 1,000 ML 100 ML IV (13:41)
[2020-08-21 13:44] LABS: Absolute Lymphocyte Count 0.58 X10^3/uL (0.83-4.51); Absolute Neutrophil Count 3.4 X10^3/uL (2.0-7.7); Basophil# 0.02 X10^3/uL; Basophil% 0.5 % (0-1); Eosinophil# 0.07 X10^3/uL; Eosinophils% 1.6 % (0-5); Hematocrit 40.6 % (37-47); Lymphocyte # 0.58 X10^3/ul (4.0); Lymphocyte % 13.2 % (19-41); Mean Corpuscular Hgb 29.7 pg (27.0-32.0); Mean Corpuscular Volume 92.7 fL (81-99); Mean Platelet Vol. 9.8 fl (6.2-12.0); Monocyte% 6.8 % (0-10); NRBC Flagged by Analyzer 0 % (0-5); Neutrophil # 3.43 X10^3/uL (2.7-7.7); Neutrophil % 77.9 % (47-70); POSITIVE DIFFERENTIAL YES; Platelet Count 188 K/mm3 (150-450); RBC Distribution Width SD 47.8 fl (35.1-43.9); Red Blood Count 4.38 M/mm3 (4.2-5.4); White Blood Count 4.4 K/mm3 (4.4-11.0)
[2020-08-21 13:45] LABS: Differential Indicated SCAN CRITERIA MET
[2020-08-21 14:01] LABS: Anion Gap 5 (5-15); BUN 13 mg/dL (7-18); BUN/Creat Ratio 17.9 RATIO (10-20); Chloride 105 mmol/L (98-107); Creatinine, Serum 0.73 mg/dL (0.55-1.02); EST Glomerular Filtration Rate 82 mL/min (>60); Est Glom Filt Rate - Afr Amer 99 mL/min (>60); Estimated Creatinine Clearance 38.75 ml/min; Glucose 88 mg/dL (74-106); Sodium Level 139 mmol/L (136-145)
[2020-08-21 14:02] LABS: International Normalized Ratio 2.5; Prothrombin Time (Protime)PT. 26.2 SECONDS (11.7-14.9)
--- NOTE | 2020-08-21 14:05 | RAD_ITS ---
STUDY: ERCP. REASON FOR EXAM: Female, 79 years old. ERCP, obstructive jaundice FLUOROSCOPY TIME (if supplied): ( 1 minute and 54 seconds. ) minutes/seconds. A single image was submitted. TECHNIQUE: An ERCP was performed by the surgeon. Imaging was submitted. COMPARISON: None. FINDINGS: There is a dilated common bile duct. No contrast is seen exiting the common bile duct. This is in keeping with an obstructive calculus in the distal portion of the common bile duct. RAD/ERCP Biliary Only IMPRESSION: Obstructive calculus in the distal portion of the common bile duct. Dilated common bile duct. Electronically Signed: Wilver Ann MD at 15:08 EST , Service support ,
--- NOTE | 2020-08-21 14:52 | PN_ITS ---
Progress Note I performed an ERCP and remove several stones. I would like to admit the patient for observation overnight to ensure she does not develop pancreatitis. The patient will be discharged tomorrow and come back on Tuesday for elective laparoscopic cholecystectomy to ensure this does not happen again in the future. Mrack Garcia MD Pager: [facility] [address] [place] [address], [address] [place] [address] Office: [facility] Vital Signs/Narrative: Vital Signs Temp Pulse Resp BP Pulse Ox 08/21/20 14:48 97.8 F 81 83 H 119/58 L 97 08/21/20 13:10 98.4 F 76 14 101/52 L 97
--- NOTE | 2020-08-21 14:52 | OP.ERCP_ITS ---
Patient Name: Josefina Fabian Procedure Date: 08/21/2020 1:48 PM Date of : 1940 Age: 79 Procedure: ERCP Indications: Elevated liver enzymes Providers: Marck Garcia MD Medicines: General Anesthesia Patient Profile: This is an 79 year old female. Refer to note in patient chart for documentation of history and physical. Complications: No immediate complications. Estimated blood loss: Minimal. Procedure: Pre-Anesthesia Assessment: - Prior to the procedure, a History and Physical was performed, and patient medications and allergies were reviewed. The patient's tolerance of previous anesthesia was also reviewed. The risks and benefits of the procedure and the sedation options and risks were discussed with the patient. All questions were answered, and informed consent was obtained. Prior Anticoagulants: The patient has taken Coumadin (warfarin), last dose was 1 day prior to procedure. After reviewing the risks and benefits, the patient was deemed in satisfactory condition to undergo the procedure. After obtaining informed consent, the scope was passed under direct vision. Throughout the procedure, the patient's blood pressure, pulse, and oxygen saturations were monitored continuously. The duodenoscope was introduced through the mouth, and advanced to the duodenum and used to inject contrast into the bile duct. The ERCP was accomplished without difficulty. The patient tolerated the procedure well. Scope In: 2:23:54 PM Scope Out: 2:31:46 PM Total Procedure Duration Time 0 hours 7 minutes 52 seconds Findings: A 0.035 inch x 260 cm straight Dreamwire was passed into the biliary tree. The sphincterotome was passed over the guidewire and the bile duct was then deeply cannulated. Contrast was injected. I personally interpreted the bile duct images. The lower third of the main bile duct contained filling defect(s) thought to be a stone. Biliary sphincterotomy was made with a monofilament sphincterotome using ERBE electrocautery. There was no post-sphincterotomy bleeding. The biliary tree was swept with a 15 mm balloon starting at the bifurcation. Many stones were removed. No stones remained. The endoscope was withdrawn from the patient. Impression: - A filling defect consistent with a stone was seen on the cholangiogram. - Choledocholithiasis was found. Complete removal was accomplished by biliary sphincterotomy and balloon extraction. - A biliary sphincterotomy was performed. - The biliary tree was swept. Recommendation: - Admit the patient to hospital haro for observation. - Advance diet as tolerated. - Continue present medications. Procedure Code(s): --- Professional --- 63544, Endoscopic retrograde cholangiopancreatography (ERCP); with removal of calculi/debris from biliary/pancreatic duct(s) 23973, Endoscopic retrograde cholangiopancreatography (ERCP); with sphincterotomy/papillotomy Diagnosis Code(s): --- Professional --- K80.50, Calculus of bile duct without cholangitis or cholecystitis without obstruction R74.8, Abnormal levels of other serum enzymes R93.2, Abnormal findings on diagnostic imaging of liver and biliary tract CPT copyright 2017 [employer]. All rights reserved. The codes documented in this report are preliminary and upon veneer stapler review may be revised to meet current compliance requirements. Marck Garcia MD 08/21/2020 2:52:01 PM This report has been signed electronically. Number of Addenda: 0 Note Initiated On: 08/21/2020 1:48 PM
--- NOTE | 2020-08-21 14:52 | OP.CCLET_ITS ---
08/21/2020 Lucian Izquierdo [address] [place] [address] Re : ERCP procedure for Josefina Fabian Dear Dr. Izquierdo This procedure was performed on August. My impressions and recommendations are as follows: Impressions : - A filling defect consistent with a stone was seen on the cholangiogram. - Choledocholithiasis was found. Complete removal was accomplished by biliary sphincterotomy and balloon extraction. - A biliary sphincterotomy was performed. - The biliary tree was swept. Recommendations : - Admit the patient to hospital haro for observation. - Advance diet as tolerated. - Continue present medications. My findings are described in the full procedure note, which is enclosed. If I can be of further assistance, please feel free to contact me at Doctor phone number(s): , Work: . Sincerely, Mrack Garcia MD 08/21/2020 2:52:01 PM This report has been signed electronically.
[2020-08-21] MEDS: 0.9% Normal Saline 1,000 ML 60 ML IV (15:47)
[2020-08-21] MEDS: Acetaminophen 325 MG Tablet 650 MG PO (20:12)
[2020-08-21] MEDS: Ondansetron 4 MG/2 ML Vial IV (20:12)
[2020-08-21] MEDS: 0.9% Saline Lock 10 ML Syringe IV (20:12)
[2020-08-21] MEDS: Metoprolol Tartrate 25 MG Tablet 12.5 MG PO (20:44)
[2020-08-21] MEDS: Magnesium Chloride 64 MG Delay Rel.Tablet 128 MG PO (20:44)
[2020-08-22 01:57] VITALS: BP 96/57; PULSE 79; RESP 16; TEMP 36.7; O2SAT 97
[2020-08-22] MEDS: Acetaminophen 325 MG Tablet 650 MG PO (04:24)
[2020-08-22 07:41] VITALS: BP 96/55; PULSE 73; TEMP 36.7; O2SAT 94
[2020-08-22 07:41] LABS: ALB/GLOB Ratio 0.9 RATIO (0.9-2.4); AST(SGOT) 158 U/L (15-37); Alanine Aminotransfer ALT/SGPT 216 U/L (13-56); Albumin, Serum 2.9 g/dL (3.2-5.0); Alkaline Phosphatase 348 U/L (45-117); Anion Gap 4 (5-15); BUN 10 mg/dL (7-18); BUN/Creat Ratio 13.8 RATIO (10-20); Calcium,Total 8.4 mg/dL (8.5-10.1); Chloride 106 mmol/L (98-107); Creatinine, Serum 0.73 mg/dL (0.55-1.02); EST Glomerular Filtration Rate 82 mL/min (>60); Est Glom Filt Rate - Afr Amer 99 mL/min (>60); Estimated Creatinine Clearance 38.75 ml/min; Globulin 3.3 g/dL (2.2-4.2); Glucose 90 mg/dL (74-106); Lipase 39 U/L (73-393); Potassium 3.9 mmol/L (3.5-5.1); Protein, Total 6.2 g/dL (6.4-8.2); Sodium Level 138 mmol/L (136-145)
[2020-08-22 08:14] LABS: International Normalized Ratio 2.6; Prothrombin Time (Protime)PT. 27.7 SECONDS (11.7-14.9)
--- NOTE | 2020-08-22 08:21 | DCINST_ITS ---
You will use the following diet at home:: Regular Your food should be the consistency of: Regular Discharge Activity: No Restrictions, May Drive, May Shower Call your doctor if you observe: Fever of 101 or Higher Additional Instructions: Hold coumadin until after surgery tuesday. You will be having gallbladder surgery this tuesday. Please come to main entrance at noon on 08/25/20. Do not eat or drink anything that day except a sip of water with your medications. Allergies/Adverse Reactions: Allergies oxycodone Adverse Reaction (Verified 08/21/20 08:47) PASSING OUT phenazopyridine HCl [From Pyridium] Adverse Reaction (Verified 08/21/20 08:47) Upset Stomach Medications to take at Discharge Calcium Carbonate/Vitamin D3 [Calcium 600-Vit D3 400 Caplet] 1 ea PO BID 01/05/16 Cholecalciferol (Vitamin D3) [Vitamin D3] 50,000 unit PO CEDILLO 01/05/16 Loperamide HCl/Simethicone [Imodium Multi-Symptom Rel Cplt] 2 ea PO QHS PRN 01/05/16 Multivit-Min/FA/Lycopen/Lutein [Centrum Silver Tablet] 1 ea PO MOWEFR 01/05/16 omega-3 fatty acids 1,000 mg capsule 1,000 mg PO DAILY 02/20/19 metoprolol tartrate 25 mg tablet 12.5 mg PO BID tab 04/12/19 acetaminophen 500 mg tablet 1,000 mg PO Q8 PRN tab 07/28/20 antiarthritic combination no.2 900 mg tablet 900 mg PO DAILY tab 07/28/20 famotidine 20 mg tablet 20 mg PO BID 07/28/20 lactobacillus combination no.9 4 billion cell capsule 4,000 mmu cells PO DAILY 07/28/20 melatonin 3 mg disintegrating tablet 3 mg PO QHS PRN 07/28/20 Magnesium Oxide [Magnesium] 400 mg PO QHS 08/18/20 Omeprazole [Prilosec] 20 mg PO DAILY #30 cap 08/18/20 Ondansetron [Zofran Odt] 4 mg PO Q8H PRN PRN #10 tab 08/18/20 Vit No.130/Iron/Folic [ Tablet] 1 ea PO SUTUTHSA 08/18/20 Primary Care Physician: Lucian Izquierdo MD [Primary Care Provider] - Test Results: Test results from this visit will be discussed in further detail at your follow- up appointment, if applicable.
[2020-08-22] MEDS: 0.9% Normal Saline 1,000 ML 60 ML IV (08:29)
[2020-08-22 08:56] VITALS: BP 93/63; PULSE 77
[2020-08-22 08:58] VITALS: BP 93/63; PULSE 77
[2020-08-22] MEDS: Pantoprazole Sodium 20 MG Tablet PO (08:59)
[2020-08-22 10:18] VITALS: BP 97/63; PULSE 77; RESP 18; TEMP 37.1; O2SAT 94
--- NOTE | 2020-08-22 10:30 | PHA.DC.MR ---
Pharmacy Service has performed discharge medication reconciliation for this patient. No new medications at time of discharge. Medications reviewed are from previously reported home medications. The patient's discharge medication list was reviewed for discrepancies and discrepancies were resolved. Home Medications Calcium Carbonate/Vitamin D3 [Calcium 600-Vit D3 400 Caplet] 1 ea PO BID 01/05/16 Cholecalciferol (Vitamin D3) [Vitamin D3] 50,000 unit PO CEDILLO 01/05/16 Loperamide HCl/Simethicone [Imodium Multi-Symptom Rel Cplt] 2 ea PO QHS PRN 01/05/16 Multivit-Min/FA/Lycopen/Lutein [Centrum Silver Tablet] 1 ea PO MOWEFR 01/05/16 omega-3 fatty acids 1,000 mg capsule 1,000 mg PO DAILY 02/20/19 metoprolol tartrate 25 mg tablet 12.5 mg PO BID tab 04/12/19 acetaminophen 500 mg tablet 1,000 mg PO Q8 PRN tab 07/28/20 antiarthritic combination no.2 900 mg tablet 900 mg PO DAILY tab 07/28/20 famotidine 20 mg tablet 20 mg PO BID 07/28/20 lactobacillus combination no.9 4 billion cell capsule 4,000 mmu cells PO DAILY 07/28/20 melatonin 3 mg disintegrating tablet 3 mg PO QHS PRN 07/28/20 Magnesium Oxide [Magnesium] 400 mg PO QHS 08/18/20 Omeprazole [Prilosec] 20 mg PO DAILY #30 cap 08/18/20 Ondansetron [Zofran Odt] 4 mg PO Q8H PRN PRN #10 tab 08/18/20 Vit No.130/Iron/Folic [ Tablet] 1 ea PO SUTUTHSA 08/18/20
== END 2020-08-22 11:00 | disposition home or self-care (01) ==
LOC: MS3 08-22 00:28
PROVIDERS: Physician Assistant; Admitting Provider Surgery; PCP Family Medicine; Referring Provider Family Medicine; Visit Provider Surgery
PROC: (CPT 43260; principal; 2020-08-21 14:15)
DX: K80.51 Calculus of bile duct without cholangitis or cholecystitis with obstruction (principal); R74.8 Abnormal levels of other serum enzymes; R93.2 Abnormal findings on diagnostic imaging of liver and biliary tract; Z20.822 Contact with and (suspected) exposure to COVID-19; K21.9 Gastro-esophageal reflux disease without esophagitis; J44.9 Chronic obstructive pulmonary disease, unspecified; E78.5 Hyperlipidemia, unspecified; I73.9 Peripheral vascular disease, unspecified; I48.21 Permanent atrial fibrillation; Z79.01 Long term (current) use of anticoagulants; Z79.899 Other long term (current) drug therapy; I10 Essential (primary) hypertension; K44.9 Diaphragmatic hernia without obstruction or gangrene; G47.30 Sleep apnea, unspecified
CPT/HCPCS: 43262; 43264; 36415; 36416; 74328; 76000; 80048; 80053; 83690; 85025; 85610; 87426; 96374; 99218; 99251; J7030; J7120; A4216; G0378; G0379; G0463; J2405

== ENCOUNTER 2020-08-25 11:56 | Day surgery (SDC) | payer MEDICARE, SELFPAY ==
[2020-08-21 08:42] VITALS: BMI 24.9
[2020-08-21 15:48] VITALS: BMI 25.5
[2020-08-25] VITALS (10 sets, daily range): BP systolic 124–142; BP diastolic 64–106; PULSE 73–94; RESP 16; TEMP 36.5–37; O2SAT 94–100; BMI 25.9
--- NOTE | 2020-08-25 06:00 | HP_ITS ---
Intake Vital Signs 08/21/20 Height 5 ft 4 in 08/21/20 Weight: 145 lb 08/21/20 BMI 24.9 08/21/20 BP 115/78 08/21/20 Blood Pressure Location Rt brachial 08/21/20 Position Sitting 08/21/20 Respiration 16 Intake Visit Reasons: F/U TEST RESULTS FROM ER Corporate Investigator Required: No Is patient in pain?: Yes (abdominal pain ) Pain scale (1-10): 4 Allergies oxycodone Adverse Reaction (Verified 08/21/20 08:47) PASSING OUT phenazopyridine HCl [From Pyridium] Adverse Reaction (Verified 08/21/20 08:47) Upset Stomach Medications Calcium Carbonate/Vitamin D3 [Calcium 600-Vit D3 400 Caplet] 1 ea PO BID 01/05/16 [History Confirmed 08/21/20] Cholecalciferol (Vitamin D3) [Vitamin D3] 50,000 unit PO CEDILLO 01/05/16 [History Confirmed 08/21/20] Loperamide HCl/Simethicone [Imodium Multi-Symptom Rel Cplt] 2 ea PO QHS PRN 01/05/16 [History Confirmed 08/21/20] Multivit-Min/FA/Lycopen/Lutein [Centrum Silver Tablet] 1 ea PO MOWEFR 01/05/16 [History Confirmed 08/21/20] Warfarin [Coumadin] 3 mg PO MOWEFR 01/05/16 [History Confirmed 08/21/20] Warfarin [Coumadin] 4 mg PO SUTUTHSA 01/05/16 [History Confirmed 08/21/20] omega-3 fatty acids 1,000 mg capsule 1,000 mg PO DAILY 02/20/19 [History Confirmed 08/21/20] metoprolol tartrate 25 mg tablet 12.5 mg PO BID tab 04/12/19 [History Confirmed 08/21/20] acetaminophen 500 mg tablet 1,000 mg PO Q8 PRN tab 07/28/20 [History Confirmed 08/21/20] antiarthritic combination no.2 900 mg tablet 900 mg PO DAILY tab 07/28/20 [History Confirmed 08/21/20] famotidine 20 mg tablet 20 mg PO BID 07/28/20 [History Confirmed 08/21/20] lactobacillus combination no.9 4 billion cell capsule 4,000 mmu cells PO DAILY 01/11/21 [History Confirmed 08/21/20] melatonin 3 mg disintegrating tablet 3 mg PO QHS PRN 07/28/20 [History Confirmed 08/21/20] Magnesium Oxide [Magnesium] 400 mg PO QHS 08/18/20 [History Confirmed 08/21/20] Omeprazole [Prilosec] 20 mg PO DAILY #30 cap 08/18/20 [Rx Confirmed 08/21/20] Ondansetron [Zofran Odt] 4 mg PO Q8H PRN PRN #10 tab 08/18/20 [Rx Confirmed 08/21/20] Vit No.130/Iron/Folic [ Tablet] 1 ea PO SUTUTHSA 08/18/20 [History Confirmed 08/21/20] PFSH Medical History PVD (peripheral vascular disease) (Chronic) Non-rheumatic mitral regurgitation (Chronic) RBBB (right bundle branch block) (Acute) Dilatation of aorta (Chronic) Atrial fibrillation, permanent (Chronic) ERICA on CPAP (Chronic) Benign essential hypertension (Chronic) COPD (chronic obstructive pulmonary disease) (Chronic) GERD (gastroesophageal reflux disease) (Chronic) HLD (hyperlipidemia) (Chronic) Positive colorectal cancer screening using Cologuard test (Acute) Diverticulosis of colon without diverticulitis (Chronic) Left inguinal hernia (Resolved) Surgical History History of repair of hiatal hernia (Resolved) History of surgery on arm (Resolved) Hx of umbilical hernia repair (Resolved) S/P inguinal hernia repair (Resolved) Family History Mother Diabetes Brother Diabetes Social History (Updated 08/21/20 @ 09:[address] Marck Garcia MD) Smoking Status: Never smoker second hand exposure: No alcohol intake: current substance use type: does not use caffeine: Yes what type of physical activity do you participate in: walking, weight training frequency: 3-4 times per week seatbelt use: always HPI HPI HPI: DAT GIFFORD, is a 79 F who presents to the office today for HPI HPI HPI: DAT GIFFORD, is a 79 F who presents to the office today for Abdominal pain. The patient was in the emergency room 3 days ago with abdominal pain and labs showed elevated liver enzymes. She also had a dilated common duct as well as cholelithiasis and sludge in the gallbladder. She presents back for follow-up today after having repeat labs and says she still having discomfort across her epigastric area. ROS General General: Yes fatigue; no weight change, appetite, colon cancer, breast cancer or weakness HEENT HEENT: No difficulty swallowing, eye injury, eye surgery, swollen glands or hoarseness Endo Endocrine: No thyroid disease, diabetes mellitus, thyroid cancer, Hair loss, heat intolerance or cold intolerance Skin Skin: No rash or changing moles Musc Musculoskeletal: Yes arthritis; no back problems, rheumatoid arthritis, gout or joint pain Cardio Cardiovascular: Yes atrial fibrillation; no murmur, pacemaker, heart disease, high blood pressure, heart attack, heart stent, palpitations, shortness of breat with exertion or chest pain Psych Psychiatric: No anxiety or hearing voices Resp Respiratory: No shortness of breath, Yes sleep apnea, No cough, No COPD, No asthma, No emphysema, No wheezing Gastro Gastrointestinal: Yes abdominal pain, No nausea or vomiting, Yes diarrhea, No constipation, Yes blood in stool, No acid reflux, Yes hemorrhoids, No ulcers, No gallbladder problem, No black,tarry stools Victor Manuel Hematologic: Yes blood thinners, No blood disorders, No bleeding, No anemia, No blood clots Neuro Neurologic: No system reviewed and no additional complaints, except as docu, No as per HPI, No abnormal walking, No abnormal hearing, No abnormal movements, No abnormal speech, No behavioral changes, No burning sensations, No confusion, No seizure-like activity, No unsteadiness, No dizziness, No localized weakness, No frequent falls, No headache(s), No lack of coordination, No loss of vision, No memory loss, Yes numbness, No other visual disturbances, No radiating pain, No restless legs, No sensory deficit, No fainting, No tingling, No tremor(s), No weakness, No other Exam Const General: cooperative Orientation: alert, oriented x3 Resp Effort & Inspection: normal respiratory effort Auscultation: clear to auscultation bilaterally Cardio Rate: regular rate Rhythm: regular rhythm Heart Sounds: no murmurs GI Inspection: non-distended Palpation: soft, nontender Assessment & Plan Problems 1. Obstructive jaundice K83.1 Plan The patient was in the emergency room 3 days ago with elevated liver enzymes and a dilated common duct as well as positive cholelithiasis. She had a normal white count at that time with a left shift. She was sent home and presented today after repeat LFTs show increase. The patient is describing epigastric discomfort which is not exacerbated by palpation. She had more elevated liver enzymes today during labs and has consistent pain. I believe the patient has obstructive jaundice due to choledocholithiasis. I recommended ERCP to the patient. I discussed her labs with her and showed her her ultrasound images as well as her bile duct. I discussed ERCP with her in detail. I discussed the risks including but not limited to bleeding, infection, perforation of the bile duct or bowel, pancreatitis. The patient would like to proceed. I will have the patient come back today for ERCP in the OR and admitted for observation following the procedure. The patient has a this weekend and would like to attend and I will plan for outpatient cholecystectomy to prevent this happening in the future next week. We discussed the current risks associated with COVID-19. While it is understood that there is a community spread of COVID-19, the risk of hossein COVID-19 while at [facility] ([facility]) is very low; however, the risk cannot be completely mitigated because of the community spread of the disease. We discussed in detail the risk of exposure to and/or potential harm posed by the COVID-19 virus with having a surgery/procedure at this time versus the risk of delaying the surgery/procedure. It is not possible to know either the risk of delaying the surgery or procedure or chance of getting an infection with perfect accuracy, but a joint decision was made to proceed at this time with the scheduled surgery/procedure as indicated on the consent form. Patient was notified that we will need to comply with any screening or testing [facility] wishes to perform or that surgery may be delayed for any positive results. Marck Garcia MD Pager: [facility] [address] [place] [address], [address] [place] [address] Office: Orders Orders: ERCP Biliary Only Today K83.1 Coding Level of Care Code Off vis,est,level 3 Diagnoses Obstructive jaundice K83.1 The patient underwent ERCP last week and was found to have multiple stones in her duct. They were all cleared via ERCP. I discharged her the following day and she is here for elective laparoscopic cholecystectomy to prevent future episodes of choledocholithiasis. I discussed the procedure in detail with the patient. I discussed the risks, benefits, and alternatives of the procedure. I discussed the risks including but not limited to bleeding, infection, injury to surrounding organs such as the liver, bile duct, bowels. I did discuss the possibility of having to convert to an open procedure as well as the possibility that if any injuries occurred this may necessitate further surgery at a tertiary care center. Marck Garcia MD Pager: [facility] [address] [place] [address] [address] [place] [address] Office:
[2020-08-25] MEDS: Lactated Ringers 1,000 ML 100 ML IV ×2 (12:39→14:42)
[2020-08-25 13:15] LABS: Prothrombin Time Fingerstick 18.5 SEC (11.9-14.4)
[2020-08-25] MEDS: Cefotetan 2 GM in 0.9% NS 100 ML IV (13:22)
--- NOTE | 2020-08-25 13:25 | GALL_PTH ---
PATIENT: DAT GIFFORD [place] [facility] U[place][id number] AGE/SX: 79/F ROOM: RE08/25/[address]: Dr. Marck Garcia MD : 1940 BED: DIS: 08/25/2020 SPEC #: [id number] RECD: 08/25/20 14:36 STATUS: CLIVE REMiladys #: [id number] ДМИТРИЙ: 08/25/20 13:[address]: Marck Garcia DEPT: SURGICAL PATHOLOGY RECD BY: Deepa Velazquez ENTERED: 08/26/20 07:18 SP TYPE: MILAGRO ALBERT DR: Dr. Lucian Izquierdo MD Tissues: Gallbladder, NOS Procedures: Surgery Specimen Level III HEADER OPERATION: Laparoscopic cholecystectomy with IOC PRE-OP DIAGNOSIS: Obstructive jaundice TISSUE SUBMITTED: Gallbladder MICROSCOPIC DIAGNOSIS Gallbladder, cholecystectomy: Chronic and focal acute cholecystitis. AM:maggie 08/27/2020 MICROSCOPIC DESCRIPTION Slides are reviewed. GROSS DESCRIPTION Received is one container labeled with the patient's name and designated gallbladder. The specimen consists of a gallbladder measuring 9 cm in length and up to 2.5 cm in diameter. The external surface is pink-quarles, smooth and glistening for the most part. Focally it is granular, hemorrhagic and contains cautery artifact. The gallbladder contains a small amount of green-yellow mucoid bile. No stones are identified in the container or in the gallbladder. The mucosa is bile-stained and without any mass lesions. The gallbladder wall measures up to 0.4 cm in thickness. Rheostat Assembler sections from the gallbladder and the cystic duct are submitted in one cassette. / SJ:maggie 08/26/20 TC:2 CPT: 04094
--- NOTE | 2020-08-25 13:25 | RAD_ITS ---
STUDY: INTRAOPERATIVE CHOLANGIOGRAM. REASON FOR EXAM: Female, 79 years old. Obstructive jaundice -- possible gallstone in cystic duct FLUOROSCOPY TIME (if supplied): ( 15.9 seconds ) minutes/seconds. A cine loop of 108 images was submitted. TECHNIQUE: An intraoperative cholangiogram was performed by the surgeon. Imaging was submitted. COMPARISON: Comparison is made with prior ERCP examination dated 08/21/2020. FINDINGS: Dilated intrahepatic biliary ducts. There is dilatation of the common bile duct. No intraluminal filling defect is seen. There is free flow of contrast into the duodenum. RAD/Cholangiogram/ O R,Initial IMPRESSION: Dilated intrahepatic and extrahepatic biliary ducts. Free flow of contrast is seen in the duodenum. Electronically Signed: Wilver Ann MD at 15:29 EST , Service support ,
[2020-08-25] MEDS: Bupiv/Epi 0.25% 30 ML Vial (14:10)
--- NOTE | 2020-08-25 14:14 | OP.PCM_ITS ---
Problem List (1) Choledocholithiasis Status: Acute Report of Operation Date of Procedure: 08/25/20 Pre-Operative Diagnosis: Choledocholithiasis Post-Operative Diagnosis: Same Surgery/Procedure Performed:: Laparoscopic cholecystectomy with cholangiogram Specimen's removed: Gallbladder and contents Description of Procedure: After obtaining informed consent patient was brought back to the operating room. General anesthesia was induced. The abdomen was prepped and draped in usual sterile fashion. A small midline incision was made superior to the umbilicus and deepened to the level of fascia. The fascia was elevated and incised. Next the peritoneum was elevated and incised in the same fashion. Finger sweep was performed and the Traore trocar was placed into the abdomen. The balloon was inflated. The abdomen was inflated to 15 mmHg. Next a camera was introduced into the abdomen and the abdomen was inspected. Next under direct visualization three 5-mm ports were placed one subxiphoid and 2 subcostal. Next the gallbladder was elevated and retracted toward the right shoulder. The peritoneum was stripped from the gallbladder. The infundibulum was located and retracted laterally. Next the triangle of Calot was dissected and the cystic duct and cystic artery were identified. Cholangiograms were performed. The Hart clamp was used to clamp across the infundibulum and the catheter needle was inserted into the gallbladder. Under fluoroscopy contrast was instilled into the gallbladder and the common duct, cystic duct as well as proximal h epatic ducts were identified. There was good filling of the duodenum. There were no filling defects noted in the common bile duct. The clamp was removed as well as the needle and the infundibulum was grasped once more. Three hemolock clips were placed across the cystic duct. The cystic duct was then divided leaving 2 clips on the stump. The cystic artery was clipped and divided in the same fashion. The hook cautery was then used to take the gallbladder off of the gallbladder bed. Hemostasis was obtained. Gallbladder fossa was irrigated and no active bleeding or bile leakage was noted. Next the camera was introduced in the subxiphoid port. An Endopouch bag was placed through the umbilical port and the gallbladder was placed into it. The gallbladder was then removed through the umbilical incision. The camera was then reinserted through the umbilical port. The gallbladder fossa was inspected once more and noted to be hemostatic with no leaking bile. The abdomen was suctioned dry. The 5 mm ports were removed under direct visualization. The umbilical port was then removed and the air was removed from the abdomen. Next using an 0 Vicryl suture the umbilical fascia was closed in a [id number] fashion. The umbilical port site was irrigated local anesthetic was administered to all the incisions. All the incisions were closed with interrupted subcuticular 4-0 Monocryl sutures followed by Steri-Strips and dressings. The patient was awoken and taken to PACU in stable condition. - Admit VTE Documentation VTE Mechan Device Prophylaxis: SCD's
--- NOTE | 2020-08-25 14:17 | DCINST_ITS ---
Discharge Diet: Light diet - advance as tolerated Discharge Activity: Return to Normal Activity, May Not Drive - for 2-3 days or while taking narcotic pain medicataions., - - Do not drive, work heavy equipment or sign legal documents for 24 hours. May shower in (days): 1 - with the bandage in place. Lifting Restrictions: 20 lbs for 2 weeks Additional Activity Instructions:: Pain medication may cause nausea. You should typically eat light foods as you take your pain medications. Pain medication may also cause constipation. If this is a problem for you, please discuss with your doctor. Call your doctor if your incision/area has: Continuous Slow Oozing, Sudden Increased Bleeding, Increased Pain/ Swelling, Increased Redness, Foul Smelling Discharge, Fever of 101 or Higher Call your doctor if you observe: Fever of 101 or Higher Suture Line Care: Avoid Pulling/Pushing, Avoid Pinching/Bending Additional Dressing/Incision Instructions:: Leave operative bandaids on for 2 days. When you remove dressing, leave Steri-Strips on until your follow-up appointment, or until the Steri-Strips fall off on their own. Allergies/Adverse Reactions: Allergies oxycodone Adverse Reaction (Verified 08/21/20 08:47) PASSING OUT phenazopyridine HCl [From Pyridium] Adverse Reaction (Verified 08/21/20 08:47) Upset Stomach Medications to take at Discharge Calcium Carbonate/Vitamin D3 [Calcium 600-Vit D3 400 Caplet] 1 ea PO BID 01/05/16 Cholecalciferol (Vitamin D3) [Vitamin D3] 50,000 unit PO CEDILLO 01/05/16 Loperamide HCl/Simethicone [Imodium Multi-Symptom Rel Cplt] 2 ea PO PRN PRN 01/05/16 Multivit-Min/FA/Lycopen/Lutein [Centrum Silver Tablet] 1 ea PO MOWEFR 01/05/16 omega-3 fatty acids 1,000 mg capsule 1,000 mg PO DAILY 02/20/19 metoprolol tartrate 25 mg tablet 12.5 mg PO BID tab 04/12/19 acetaminophen 500 mg tablet 1,000 mg PO Q8 PRN tab 07/28/20 antiarthritic combination no.2 900 mg tablet 900 mg PO DAILY tab 07/28/20 lactobacillus combination no.9 4 billion cell capsule 4,000 mmu cells PO DAILY 07/28/20 melatonin 3 mg disintegrating tablet 3 mg PO QHS PRN PRN 07/28/20 Magnesium Oxide [Magnesium] 400 mg PO QHS 08/18/20 Omeprazole [Prilosec] 20 mg PO DAILY #30 cap 08/18/20 Ondansetron [Zofran Odt] 4 mg PO Q8H PRN PRN #10 tab 08/18/20 Vit No.130/Iron/Folic [ Tablet] 1 ea PO SUTUTHSA 08/18/20 Ipratropium Quin[place] 0.06% [ATROVENT NASAL SPRAY (g)] 1 spray NASAL BID 08/22/20 Warfarin [Coumadin ([facility])] 3 mg PO MOWEFR 08/22/20 Warfarin [Coumadin ([facility])] 4 mg PO SUTUTHSA 08/22/20 Hydrocodone/Acetaminophen [Hydrocodon-Acetaminophen 5-325] 1 tab PO Q6H PRN PRN 3 Days #10 tablet 08/25/20 The following prescriptions were given: Hydrocodone/Acetaminophen [Hydrocodon-Acetaminophen 5-325] 1 tab PO Q6H PRN PRN 3 Days #10 tablet PRN Reason: Pain Score 4-10/10 Transmission Status: Sent to [facility] Primary Care Physician: Lucian Izquierdo MD [Primary Care Provider] - Test Results: Test results from this visit will be discussed in further detail at your follow- up appointment, if applicable. Please Follow Up With: Marck Garcia MD When: Please call to schedule 2 week follow up appointment. [phone]
== END 2020-08-25 18:56 | disposition home or self-care (01) ==
LOC: SDC 11:58 → AC 11:59
PROVIDERS: PCP Family Medicine; Referring Provider Surgery; Visit Provider Surgery
PROC: (CPT 47610; principal; 2020-08-25 13:05)
DX: K80.47 Calculus of bile duct with acute and chronic cholecystitis with obstruction (principal); I48.21 Permanent atrial fibrillation; I45.10 Unspecified right bundle-branch block; I34.0 Nonrheumatic mitral (valve) insufficiency; I34.1 Nonrheumatic mitral (valve) prolapse; I10 Essential (primary) hypertension; I73.9 Peripheral vascular disease, unspecified; J44.9 Chronic obstructive pulmonary disease, unspecified; E78.5 Hyperlipidemia, unspecified; K21.9 Gastro-esophageal reflux disease without esophagitis; G47.33 Obstructive sleep apnea (adult) (pediatric); Z79.01 Long term (current) use of anticoagulants; Z79.899 Other long term (current) drug therapy
CPT/HCPCS: 47563; 36416; 74300; 76000; 85610; 88304; J7120; J2405

== ENCOUNTER → 2021-03-12 11:48 | Outpatient (CLI) | payer MEDICARE, SELFPAY ==
[2021-03-12 15:05] LABS: Absolute Lymphocyte Count 0.81 X10^3/uL (0.83-4.51); Absolute Neutrophil Count 2.8 X10^3/uL (2.0-7.7); Basophil# 0.03 X10^3/uL; Basophil% 0.7 % (0-1); Eosinophil# 0.08 X10^3/uL; Hematocrit 43.2 % (37-47); Hemoglobin 13.8 g/dL (12.0-15.0); Lymphocyte # 0.81 X10^3/ul (0.83-4.51); Mean Corp Hgb Conc 31.9 g/dL (32-36); Mean Corpuscular Hgb 30.5 pg (27.0-32.0); Mean Corpuscular Volume 95.4 fL (81-99); Mean Platelet Vol. 10.4 fl (6.2-12.0); Monocyte# 0.35 X10^3/uL; Monocyte% 8.6 % (0-10); NRBC Flagged by Analyzer 0 % (0-5); Neutrophil # 2.78 X10^3/uL (2.7-7.7); Neutrophil % 68.5 % (47-70); Platelet Count 212 K/mm3 (150-450); RBC Distribution Width CV 14.1 % (11.6-14.6); RBC Distribution Width SD 49.5 fl (35.1-43.9); Red Blood Count 4.53 M/mm3 (4.2-5.4); White Blood Count 4.1 K/mm3 (4.4-11.0)
[2021-03-12 15:26] LABS: AST(SGOT) 20 U/L (15-37); Alanine Aminotransfer ALT/SGPT 27 U/L (13-56); Albumin, Serum 3.4 g/dL (3.2-5.0); Alkaline Phosphatase 74 U/L (45-117); Anion Gap 6 (5-15); BUN 16 mg/dL (7-18); BUN/Creat Ratio 18.6 RATIO (10-20); Calcium,Total 8.9 mg/dL (8.5-10.1); Chloride 102 mmol/L (98-107); Creatinine, Serum 0.86 mg/dL (0.55-1.02); EST Glomerular Filtration Rate 67 mL/min (>60); Est Glom Filt Rate - Afr Amer 81 mL/min (>60); Globulin 3.4 g/dL (2.2-4.2); Glucose 91 mg/dL (74-106); Potassium 4.4 mmol/L (3.5-5.1); Protein, Total 6.8 g/dL (6.4-8.2); Sodium Level 139 mmol/L (136-145); Thyroid Stim Hormone (TSH) 1.77 uIU/mL (0.358-3.74)
== END ==
PROVIDERS: PCP Family Medicine; Visit Provider Family Medicine
DX: I48.20 Chronic atrial fibrillation, unspecified (principal)
CPT/HCPCS: 36415; 80053; 84443; 85025

== ENCOUNTER → 2021-05-05 10:40 | Outpatient (CLI) | payer MEDICARE, SELFPAY ==
[2021-05-05 12:36] LABS: Erythrocyte Sedimentation Rate 4 mm/hr (0-30)
[2021-05-05 12:46] LABS: Vitamin B12 700 pg/mL (211-911)
[2021-05-05 14:04] LABS: CRP < 2.90 mg/L (0.0-3.0); Ferritin 27 ng/mL (8-252); Iron 86 ug/dL (50-170); Magnesium 2.4 mg/dL (1.6-2.6)
[2021-05-06 13:21] LABS: ANTINUCLEAR ANTIBODIES DIRECT Negative (Negative)
== END ==
PROVIDERS: PCP Family Medicine; Referring Provider Family Medicine; Visit Provider Family Medicine
DX: R53.83 Other fatigue (principal); I48.20 Chronic atrial fibrillation, unspecified
CPT/HCPCS: 36415; 82607; 82728; 82746; 83540; 83735; 85652; 86038; 86140

== ENCOUNTER → 2021-05-07 07:45 | Outpatient (CLI) | payer MEDICARE, SELFPAY ==
[2021-05-07 08:45] LABS: Glucose GTT- Fasting 104 mg/dL (74-106)
[2021-05-07 09:15] LABS: Glucose GTT-30 minutes 175 mg/dL (110-170)
== END ==
PROVIDERS: PCP Family Medicine; Referring Provider Family Medicine; Visit Provider Family Medicine
DX: I48.20 Chronic atrial fibrillation, unspecified (principal); R53.83 Other fatigue
CPT/HCPCS: 36415; 82951; 82952

== ENCOUNTER → 2021-06-04 14:19 | Outpatient (CLI) | payer MEDICARE, SELFPAY ==
[2021-06-04 17:42] LABS: Absolute Lymphocyte Count 0.91 X10^3/uL (0.83-4.51); Basophil# 0.02 X10^3/uL; Basophil% 0.5 % (0-1); Eosinophil# 0.08 X10^3/uL; Eosinophils% 1.8 % (0-5); Hematocrit 41.7 % (37-47); Hemoglobin 13.4 g/dL (12.0-15.0); Lymphocyte # 0.91 X10^3/ul (0.83-4.51); Lymphocyte % 20.7 % (19-41); Mean Corp Hgb Conc 32.1 g/dL (32-36); Mean Corpuscular Hgb 30.1 pg (27.0-32.0); Mean Corpuscular Volume 93.7 fL (81-99); Mean Platelet Vol. 10.4 fl (6.2-12.0); Monocyte% 9.1 % (0-10); NRBC Flagged by Analyzer 0 % (0-5); Neutrophil # 2.97 X10^3/uL (2.7-7.7); Neutrophil % 67.7 % (47-70); Platelet Count 217 K/mm3 (150-450); RBC Distribution Width SD 47.7 fl (35.1-43.9); Red Blood Count 4.45 M/mm3 (4.2-5.4); White Blood Count 4.4 K/mm3 (4.4-11.0)
== END ==
PROVIDERS: PCP Family Medicine; Referring Provider Family Medicine; Visit Provider Nurse Practitioner Family
DX: N95.0 Postmenopausal bleeding (principal)
CPT/HCPCS: 36415; 85025

== ENCOUNTER → 2021-06-22 08:51 | Outpatient (CLI) | payer MEDICARE, SELFPAY ==
--- NOTE | 2021-06-22 09:20 | US_ITS ---
STUDY: ULTRASOUND OF THE FEMALE PELVIS - COMPLETE REASON FOR EXAM: Female, 80 years old. POST GILSON BLEEDING LMP: Patient is postmenopausal. TECHNIQUE: Transvaginal TECHNICAL QUALITY: Adequate. COMPARISON: None. FINDINGS: The uterus is anteverted and is in a midline position. The uterus measures 4.5 cm x 3.5 cm x 1.9 cm. Normal uterine cervix. The endometrium is slightly thickened and measures 3 mm in thickness, and is . There is no demonstrated endometrial mass. There is no demonstrated myometrial mass. I.U.D. - The patient does not have an I.U.D. The right ovary is non-visualized. The left ovary is non-visualized. There is no fluid in the cul-de-sac. US/Transvaginal Non- IMPRESSION: Mildly thickened endometrium. Electronically Signed: Wilver Ann MD at 15:37 EST , Service support ,
== END ==
PROVIDERS: PCP Family Medicine; Referring Provider Nurse Practitioner Family; Visit Provider Nurse Practitioner Family
DX: N95.0 Postmenopausal bleeding (principal)
CPT/HCPCS: 76830

== ENCOUNTER 2021-07-28 10:59 | Outpatient (CLI) | payer MEDICARE, SELFPAY ==
--- NOTE | 2021-07-28 11:03 | RAD_ITS ---
STUDY: X-RAY CHEST REASON FOR EXAM: Female, 80 years old. Chest pain. TECHNIQUE: PA and lateral views of the chest. COMPARISON: 08/18/2020. FINDINGS: The lungs are hyperexpanded. There is no new mass or infiltrate. There is no demonstrated pleural abnormality. Interval cardiomegaly. Normal mediastinum and maurisio. Normal visualized pulmonary arteries. There is atherosclerotic calcification of the aortic arch with tortuosity. There is osteopenia and degenerative changes of the thoracic spine with exaggerated kyphosis. Healed left rib fractures are again noted. There is no demonstrated abnormality of the visualized soft tissue structures of the upper abdomen. RAD/Chest PA and Lateral IMPRESSION: Probable COPD with cardiomegaly. There is no acute cardiopulmonary disease or interval change. Electronically Signed: Bhavin Rosario DO at 21:16 EST Tel [phone], Service support ,
[2021-07-28 12:16] LABS: Hematocrit 43.5 % (37-47); Hemoglobin 14.1 g/dL (12.0-15.0); Mean Corp Hgb Conc 32.4 g/dL (32-36); Mean Corpuscular Hgb 30.3 pg (27.0-32.0); Mean Corpuscular Volume 93.3 fL (81-99); Mean Platelet Vol. 10.7 fl (6.2-12.0); Platelet Count 215 K/mm3 (150-450); RBC Distribution Width CV 14.1 % (11.6-14.6); RBC Distribution Width SD 48.4 fl (35.1-43.9); Red Blood Count 4.66 M/mm3 (4.2-5.4); White Blood Count 3.7 K/mm3 (4.4-11.0)
[2021-07-28 12:56] LABS: ALB/GLOB Ratio 0.9 RATIO (0.9-2.4); AST(SGOT) 791 U/L (15-37); Alanine Aminotransfer ALT/SGPT 1039 U/L (13-56); Albumin, Serum 3.5 g/dL (3.2-5.0); Alkaline Phosphatase 595 U/L (45-117); Anion Gap 9 (5-15); BUN 11 mg/dL (7-18); BUN/Creat Ratio 14.5 RATIO (10-20); Calcium,Total 9.4 mg/dL (8.5-10.1); Chloride 101 mmol/L (98-107); Cholesterol 178 mg/dL (200); Creatinine, Serum 0.76 mg/dL (0.55-1.02); EST Glomerular Filtration Rate 78 mL/min (>60); Est Glom Filt Rate - Afr Amer 94 mL/min (>60); Globulin 3.8 g/dL (2.2-4.2); Glucose 90 mg/dL (74-106); High Density Lipoprotein 81 mg/dL; Potassium 3.6 mmol/L (3.5-5.1); Protein, Total 7.3 g/dL (6.4-8.2); Sodium Level 138 mmol/L (136-145); Triglycerides 59 mg/dL; Very Low Density Lipoprotein 12 mg/dL (5-40)
== END 2021-07-28 23:59 | disposition short-term general hospital (02) ==
LOC: MTLAB 11:01
PROVIDERS: PCP Family Medicine; Referring Provider Family Medicine; Visit Provider Family Medicine
DX: R07.9 Chest pain, unspecified (principal)
CPT/HCPCS: 36415; 71046; 80053; 80061; 85027

== ENCOUNTER 2021-07-28 14:15 | Inpatient (IN) | payer MEDICARE, SELFPAY ==
[2021-07-28] VITALS (7 sets, daily range): BP systolic 119–155; BP diastolic 73–93; PULSE 61–91; RESP 14–18; TEMP 36–36.8; O2SAT 95–99; BMI 24.0; BMI 24.9
--- NOTE | 2021-07-28 14:29 | CT_ITS ---
STUDY: CT ABDOMEN AND PELVIS WITH CONTRAST REASON FOR EXAM: Female, 80 years old. Pancreatic cancer. RADIATION DOSAGE (If Supplied By Facility): CTDIvol = ( 13.01 ) mGy, DLP = ( 345.12 ) mGycm TECHNIQUE: Transaxial images were obtained from the dome of the diaphragm to the symphysis pubis with oral contrast. 100 mL of ISOVUE 370 was administered. Sagittal and coronal images were reconstructed. Individualized dose optimization techniques were used for this CT. COMPARISON: Abdominal ultrasound, 08/18/2020. FINDINGS: There is increased AP diameter of the chest. Lung bases are clear. The heart is enlarged. The visualized portions of the heart are within normal limits. The liver is normal in size contour and density. The is tiny hypodensity in segment 3 thought to represent small cysts. There is a calcified granuloma peripherally in segment 6. There are surgical clips in the gallbladder fossa consistent with a prior cholecystectomy. There are multiple benign calcified granulomata of the spleen. There is partial fatty replacement of the pancreas without visualized mass. Normal bilateral adrenal glands. Normal right kidney. Normal left kidney. There is a retrocardiac hiatal hernia of the gastric fundus. The stomach is otherwise unremarkable. Normal small intestine. 100 and colonic diverticuli without acute inflammatory change. This is most marked in the sigmoid colon. There is non-visualization of the appendix. There is diffuse atherosclerotic calcification of the abdominal aorta, without a demonstrated aneurysm. Normal inferior vena cava. Normal retroperitoneum. Normal urinary bladder. Normal uterus and adnexa. There is no pelvic lymphadenopathy. No free air or free fluid is seen within the peritoneal cavity. Normal abdominal wall. Are degenerative changes of the lumbar spine. There is a right total hip arthroplasty. CT/Abdomen/Pelvis WITH Contrast IMPRESSION: 1. Cardiomegaly. 2. Fatty replacement of pancreas. There is no visualized mass. 3. Small cyst in segment 3 of the liver. 4. Old granulomatous disease. 5. Hiatal hernia. 6. Sigmoid diverticulosis. 7. Right hip replacement. Electronically Signed: Bhavin Rosario DO at 16:58 EST Tel [phone], Service support ,
[2021-07-28] MEDS: 0.9% Normal Saline 1,000 ML 150 ML IV (14:45)
--- NOTE | 2021-07-28 15:00 | EDS_ITS ---
HPI History of Present Illness Chief Complaint: Abn Labs Detail of Chief Complaint: Sent to ER for evaluation of painless jaundice Informant: patient and PCP Onset/Context/Timing Onset: Yesterday (Yesterday she had epigastric pain) Context: Sudden Onset Timing: Intermittent Current Severity: Gone Maximum Severity: Moderate Worsened by: Nothing Relieved by: Nothing Associated Symptoms Associated Symptoms: Dark urine and marr/silver-colored stool Narrative Narrative: Patient is an elderly woman who has history of atrial fibrillation, peripheral arterial disease, COPD, hypertension and GERD who presents because of elevated ALT, AST and alk phos. Bilirubin is 6. Baseline is 2. She does endorse unintentional weight loss and mid central back pain. She has had night sweats as well. Prior record indicates patient has history of cholelithiasis. She denies fever, chills night sweats. She denies nausea or vomiting. She denies diarrhea. She denies black or maroon-colored stool. She denies dysuria or frequency. She denies history of renal ureterolithiasis. She denies vaginal bleeding. Review of prior records indicates hypertension had a laparoscopic cholecystectomy. Patient had an ERCP performed August 2020. There was evidence of choledocholithiasis. Sphincterotomy was performed and the stone was extracted. Prior similar symptoms: No Recent Illness/Hospitalization: No PFSH PFSH Medical History Atrial fibrillation, permanent Benign essential hypertension COPD (chronic obstructive pulmonary disease) Dilatation of aorta Diverticulosis of colon without diverticulitis GERD (gastroesophageal reflux disease) HLD (hyperlipidemia) Left inguinal hernia Non-rheumatic mitral regurgitation Nonrheumatic mitral (valve) prolapse Positive colorectal cancer screening using Cologuard test PVD (peripheral vascular disease) RBBB (right bundle branch block) Home Medications calcium carbonate-vitamin D3 1 ea PO BID 01/05/16 [History Last Taken 08/24/20] cholecalciferol (vitamin D3) 50,000 unit PO CEDILLO 01/05/16 [History Last Taken 08/24/20] loperamide-simethicone 2 ea PO PRN PRN 01/05/16 [History Last Taken 08/24/20] omega-3 fatty acids 1,000 mg capsule 1,000 mg PO DAILY 02/20/19 [History Last Taken 08/24/20] acetaminophen 500 mg tablet 1,000 mg PO Q8 PRN tab 07/28/20 [History Last Taken 08/24/20] melatonin 3 mg disintegrating tablet 3 mg PO QHS PRN PRN 07/28/20 [History Last Taken 08/24/20] magnesium oxide 400 mg PO QHS 08/18/20 [History Last Taken 08/24/20] omeprazole 20 mg PO DAILY #30 cap 08/18/20 [Rx Last Taken 08/25/20] vit no.[id number] 1 ea PO SUTUTHSA 08/18/20 [History Last Taken 08/24/20] ipratropium bromide 1 spray NASAL BID 08/22/20 [History Last Taken 08/24/20] ewxiweel-byj-lcnyr acid 0.4 mg-lycopene 300 mcg-lutein 250 mcg tablet 1 tab PO MOWEFR 01/22/21 [History Last Taken Unknown] apixaban 2.5 mg tablet 5 mg PO BID tab 05/06/21 [History Last Taken Unknown] diphenhydramine HCl [Benadryl] 25 mg PO QHS 07/28/21 [History Last Taken Unknown] metoprolol tartrate 12.5 mg PO BID 07/28/21 [History Last Taken Unknown] Allergy/AdvReac Type Severity Reaction Status Date / Time oxycodone AdvReac PASSING Verified 07/28/21 14:18 OUT phenazopyridine HCl AdvReac Upset Verified 07/28/21 14:18 [From Pyridium] Stomach Family History Mother Diabetes Brother Diabetes Surgical History History of ERCP History of repair of hiatal hernia History of surgery on arm Hx laparoscopic cholecystectomy (~09/09/20) Hx of umbilical hernia repair S/P inguinal hernia repair Social History Smoking Status: Never smoker second hand exposure: No alcohol intake: current substance use type: does not use caffeine: Yes what type of physical activity do you participate in: walking and weight training frequency: 3-4 times per week seatbelt use: always ROS ROS ED Constitutional Constitutional ED: Reports sweats and weight loss; Denies chills, fever(s) or subjective Eyes Eyes: Denies blurry vision, change in vision or diplopia ENT ENT ED: Denies ear pain, rhinorrhea or sore throat Cardiovascular Cardiovascular: Denies chest pain, orthopnea, palpitations or racing heartbeat Respiratory/Chest Respiratory/Chest: Denies cough, dyspnea, dyspnea on exertion or orthopnea Gastrointestinal Gastrointestinal: Denies abdominal pain, constipation, diarrhea, nausea or vomiting Genitourinary Genitourinary ED: Denies dysuria, hematuria or urinary frequency Musculoskeletal Musculoskeletal: Reports back pain; Denies arthralgias, myalgias or neck pain Integumentary Denies rash Neurologic Neurologic: Reports weakness; Denies headache(s) or paresthesias Endocrine Endocrinology: Denies polydipsia, polyphagia or polyuria Hematologic/Lymphatic Hematologic/Lymphatic: Denies easy bleeding or easy bruising EXAM Physical Exam Const Vital Signs: 07/28/21 14:16 07/28/21 14:35 07/28/21 16:31 Temperature 96.8 F L Temperature Source Temporal Pulse Rate 80 76 74 Respiratory Rate 16 14 15 Respiratory Effort Normal Respiratory Pattern Normal Blood Pressure 155/93 H 119/88 H Blood Pressure Mean 113 98 Pulse Ox 99 98 98 Oxygen Delivery Method Room Air Room Air Room Air Positive well nourished and well developed General Appearance ED: well developed and NAD; Negative for cyanotic, diaphoretic or pallor HEENT Reports TM's clear and moist mucous membranes Negative for trauma or tenderness Tympanic Membrane ED: Yes TM's clear Eyes PERRL and EOMs intact bilaterally General Eye ED: Yes scleral icterus; Negative for pale conjunctiva Neck no lymphadenopathy, supple and no JVD Chest Wall inspection of chest normal Resp normal respiratory effort and clear to auscultation bilaterally Cardio regular rate and no murmurs Rate: other Rhythm: abnormal rhythm irregularly irregular GI normal to inspection, nondistended, normoactive bowel sounds, non-tender, non- distended and no masses Auscultation: normoactive bowel sounds Palpation: soft Back/Spine no CVA tenderness Cervical Spine: Negative for cervical spine tenderness Thoracic Spine / Upper Back: Negative for thoracic spinal tenderness or paraspinal muscle tenderness Extremity normal to inspection General Extremety ED: Yes edema; Negative for tenderness General Extremity: edema Neuro oriented x3, CN's II-XII intact bilaterally and no sensory deficits noted Sensorium / Orientation: alert Motor Exam: strength 5/5 throughout Psych mental status grossly normal Skin no rashes or lesions noted and no wounds General Skin Exam: jaundice; Negative for pallor MDM MDM MDM Narrative Medical decision making narrative: With painless jaundice, back pain, unintentio nal weight loss and sweats concern patient has malignancy. CT of the abdomen and pelvis with p.o. and IV contrast was ordered. PT/INR was added to assess liver function. Tests were ordered earlier today and accessible were not reordered. Renal functions normal. CT of the abdomen pelvis with p.o. and IV contrast reviewed by me. There is appears to be a mass in the head of the pancreas. There is also abnormality noted inferior the pancreas. There appears to be atrophy of the kidneys. Awaiting formal read by radiologist. Dr. Colbert the admitting physician requested I consult Dr. Rubi. Spoke with Dr. Rubi. In light of the quantity of acetaminophen patient is taking he requested a lactate, LDH, PT/INR and PTT. He also recommended IV Mucomyst. The bolus and 4-hour dose was placed by me. The third dose will be placed by the hospitalist. He also recommended an MRI. This information was relayed to the hospitalist. The supervisor sample was contacted regarding bed assignment since charlene mcdonald is on an IV infusion. Dr. Rubi recommended the infusion even if she is not taking as much and acetaminophen as documented. Lab Data Attestation: I reviewed the patient's lab results. Lab results narrative: ALT and AST are greater than the thousand. Alkaline phosphatase is approximately 500. Bilirubin was greater than 6. Basic metabolic panel was unremarkable. ALT is 1039; AST is 791; total bili is 6.2; white count is 3.7 with normal differential and hemoglobin Labs: Laboratory Results - last 24 hr 07/28/21 07/28/21 14:47 14:53 PT 14.8 INR 1.2 Lipase 61 L Radiography Diagnostic Testing: Clinical Impression(s) from Imaging Studies Abdomen/Pelvis CT 07/28/21 14:29 IMPRESSION: 1. Cardiomegaly. 2. Fatty replacement of pancreas. There is no visualized mass. 3. Small cyst in segment 3 of the liver. 4. Old granulomatous disease. 5. Hiatal hernia. 6. Sigmoid diverticulosis. 7. Right hip replacement. Electronically Signed: Bhavin Rosario DO at 16:58 EST Tel [phone], Service support , Critical Care Time Critical Care Time: Yes Critical care time (excluding procedures): 30-74 minutes (31), Including time spent: (History, physical, documentation, call with primary care provider, review of prior records and interpretation of laboratory results.), Discussing w/Patient &/or Family/Tube Dispatcher, Discussing w/Consultants (Case discussed with Dr. Rubi per hospitalist request. Test that he recommended and treatment was initiated.) and Arranging Admission or Transfer Discharge Plan Dx/Rx/DC Orders Clinical Impression: Painless jaundice, Unintentional weight loss, Diverticulosis, terminal block assembler (current) use of anticoagulants Disposition Disposition: Acute Care Hospital [facility]
[2021-07-28 15:01] LABS: Lipase 61 U/L (73-393)
[2021-07-28 15:28] LABS: International Normalized Ratio 1.2; Prothrombin Time (Protime)PT. 14.8 SECONDS (11.7-14.9)
--- NOTE | 2021-07-28 17:03 | NURSING ---
DR CHERRY PAGED
--- NOTE | 2021-07-28 17:22 | NURSING ---
PAGED DR CHERRY
--- NOTE | 2021-07-28 17:59 | NURSING ---
MED SURG JASIEL PAINLESS JAUNDICE, UNINTENTIONAL WEIGHT LOSS, LIVER SHOCK
--- NOTE | 2021-07-28 18:14 | PCM.HP.STD ---
HPI - General General Date of Admission: 07/28/21 Date of Service: 07/28/21 Chief Complaint: Abnormal labs HPI Narrative DAT GIFFORD, is a 80 F who presented to the emergency department at [facility] on 07/28/2021 after being sent by her PCP for abnormal labs. The patient states that over the last month to 2 months she has had some intermittent epigastric pain for which she is intermittently been taking Tylenol. She states she never takes more than recommended with any more frequency than recommended. She states yesterday she took 3 tablets total. She states the pain is pressure in nature and radiates to her back and wraps around bilateral upper abdominal area. She states its most common at night and was more severe yesterday evening than it had been previously. She states currently she is pain-free. She also noted that she have chalky stools and diarrhea for which she started taking a probiotic that she saw on Facebook. She states she started that approximately 1 week ago and decreased the frequency of this in the last 24 hours however she still has been taking this. She has it with her in her purse. She indicates she has had some intermittent nausea with some dry heaves but no emesis. She had a laparoscopic cholecystectomy in August 2020 and an ERCP with stone removal at that time. She also had a sphincterotomy at that time. She states her appetite is overall been poor in the last 1 to 2 months and she is lost approximately 6 pounds. She states nothing really tastes good to her. She states that her urine has been darker and more yellow and she contributed this to her vitamin B12 complex that she takes on a daily basis. She does have atrial fibrillation at baseline and is fully anticoagulated. 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 Her vital signs in the emergency department were overall unremarkable. She had a CBC done earlier today that was overall unremarkable. Coag studies were done earlier today and were within normal limits with an INR of 1.2. A CMP was performed and showed normal electrolytes and renal function with an elevated total bilirubin at 6.2, and AST of 791, and ALT of 1039, and an alk phos of 595. Her baseline bilirubin appears to be 1.6-2. Upon review of her lab there has been an uptrend however this was when she had her acute cholecystitis and stone removal with it improving to 2.0 in February of this past year. Her AST and ALT were normalized in February 2021. A lipase was obtained and was within normal limits. Given her symptoms a CT of her abdomen pelvis was performed and showed cardiomegaly with fatty replacement of the pancreas but no mass, small cyst in the third segment of the liver, old granulomatous disease, hiatal hernia, sigmoid diverticulosis, and history of a right total hip replacement but it was otherwise benign. The case was discussed with gastroenterology and they recommended admission for N-acetylcysteine given recent Tylenol use, MRCP of the abdomen pelvis and further laboratory data. N-acetylcysteine was initiated by the ER physician and she was admitted to medical surgical for further care. [facility] Medical History (Updated 07/28/21 @ 18:[address] Priya Colbert DO) Atrial fibrillation, permanent Benign essential hypertension COPD (chronic obstructive pulmonary disease) Dilatation of aorta Diverticulosis of colon without diverticulitis GERD (gastroesophageal reflux disease) Gilbert disease HLD (hyperlipidemia) Left inguinal hernia Non-rheumatic mitral regurgitation Nonrheumatic mitral (valve) prolapse Positive colorectal cancer screening using Cologuard test PVD (peripheral vascular disease) RBBB (right bundle branch block) Home Medications calcium carbonate-vitamin D3 1 ea PO BID 01/05/16 [History Last Taken 08/24/20] cholecalciferol (vitamin D3) 50,000 unit PO CEDILLO 01/05/16 [History Last Taken 08/24/20] loperamide-simethicone 2 ea PO PRN PRN 01/05/16 [History Last Taken 08/24/20] omega-3 fatty acids 1,000 mg capsule 1,000 mg PO DAILY 02/20/19 [History Last Taken 08/24/20] acetaminophen 500 mg tablet 1,000 mg PO Q8 PRN tab 07/28/20 [History Last Taken 08/24/20] melatonin 3 mg disintegrating tablet 3 mg PO QHS PRN PRN 07/28/20 [History Last Taken 08/24/20] magnesium oxide 400 mg PO QHS 08/18/20 [History Last Taken 08/24/20] omeprazole 20 mg PO DAILY #30 cap 08/18/20 [Rx Last Taken 08/25/20] vit no.[id number] 1 ea PO SUTUTHSA 08/18/20 [History Last Taken 08/24/20] ipratropium bromide 1 spray NASAL BID 08/22/20 [History Last Taken 08/24/20] uqspalen-caq-ykdwj acid 0.4 mg-lycopene 300 mcg-lutein 250 mcg tablet 1 tab PO MOWEFR 01/22/21 [History Last Taken Unknown] apixaban 2.5 mg tablet 5 mg PO BID tab 05/06/21 [History Last Taken Unknown] diphenhydramine HCl [Benadryl] 25 mg PO QHS 07/28/21 [History Last Taken Unknown] metoprolol tartrate 12.5 mg PO BID 07/28/21 [History Last Taken Unknown] Allergy/AdvReac Type Severity Reaction Status Date / Time oxycodone AdvReac PASSING Verified 07/28/21 14:18 OUT phenazopyridine HCl AdvReac Upset Verified 07/28/21 14:18 [From Pyridium] Stomach Family History Mother Diabetes Brother Diabetes Surgical History History of ERCP History of repair of hiatal hernia History of surgery on arm Hx laparoscopic cholecystectomy (~09/09/20) Hx of umbilical hernia repair S/P inguinal hernia repair Social History Smoking Status: Never smoker second hand exposure: No alcohol intake: current substance use type: does not use caffeine: Yes what type of physical activity do you participate in: walking and weight training frequency: 3-4 times per week seatbelt use: always ROS Constitutional Constitutional: Reports anorexia and change in weight; Denies chills, fatigue, fever(s), malaise, night sweats, weakness or other Eyes Eyes: Reports change in eye color; Denies blurry vision, change in vision, discharge from eye(s), double vision, erythema, eye pain, loss of vision or other ENT HEENT: Denies abnormal hearing, dysphagia, ear pain, epistaxis, headache(s), hearing loss, nasal congestion, nasal discharge, post nasal drip, sinus pressure, sore throat or other Cardiovascular Cardiovascular: Denies chest pain, claudication, dyspnea on exertion, edema, lightheadedness, orthopnea, palpitations, paroxysmal nocturnal dyspnea, rapid heart rate, syncope or other Respiratory/Chest Respiratory/Chest: Denies cough, dyspnea, excessive phlegm production, hemoptysis, productive cough, shortness of breath at rest, shortness of breath with exertion, wheezing or other Gastrointestinal Gastrointestinal: Reports abdominal pain, diarrhea, nausea and other Details: Chalk colored stools, weight loss, decreased appetite Genitourinary Genitourinary: Reports other Details: Dark yellow urine ; Denies burning urination, difficulty urinating, dysuria, hematuria, nocturia, urinary frequency, urinary hesitancy, urinary incontinence or urinary urgency Musculoskeletal Musculoskeletal: Denies arthralgias, back pain, joint pain, joint stiffness, joint swelling, myalgias, neck pain or other Neurologic Neurologic: Denies abnormal gait, abnormal speech, confusion, disequilibrium, dizziness, focal weakness, headache(s), numbness, paresthesias, seizure-like activity, seizures, syncope, tingling, tremor(s) or other Psychiatric Psychiatric: Denies anxiety, depression, homicidal ideation, suicidal ideation or other Endocrine Endocrinology: Denies change in body appearance, cold intolerance, excessive sweating, heat intolerance, polydipsia, polyuria or other Hematologic/Lymphatic Hematologic/Lymphatic: Denies anemia, easy bleeding, easy bruising, lymphadenopathy or other Allergic/Immunologic Allergic/Immunologic: Denies rhinitis, hives, eczemia, asthma or other Vital Signs Vital Signs Vital Signs: 07/28/21 14:16 07/28/21 14:35 07/28/21 16:31 Temperature 96.8 F L Temperature Source Temporal Pulse Rate 80 76 74 Respiratory Rate 16 14 15 Respiratory Effort Normal Respiratory Pattern Normal Blood Pressure 155/93 H 119/88 H Blood Pressure Mean 113 98 Pulse Ox 99 98 98 Oxygen Delivery Method Room Air Room Air Room Air Weight Weight: 63.503 kg Body Mass Index (BMI) 24.0 Physical Exam Const alert, oriented x3, no apparent distress, average body habitus and well nourished Constitutional Narrative: Pleasant elderly white female sitting up in bed, appears comfortable at this time, nontoxic-appearing, jaundice General Appearance: cooperative HEENT normocephalic, head/scalp atraumatic and moist oral mucous membranes HEENT Narrative: Mildly hard of hearing, buccal jaundice, dentition good, Mallampati 2 Eyes PERRL, EOMs intact bilaterally and conjunctivae normal Eyes Narrative: Scleral icterus Neck no lymphadenopathy, supple, no JVD and no carotid bruits Resp normal respiratory effort, no retractions, no use of accessory muscles and clear to auscultation bilaterally Auscultation: Negative for crackles, rales, rhonchi or wheezes Cardio regular rate, S1 normal heart sound, S2 normal heart sound, no rub, no gallops, no clicks and no JVD; Negative for no murmurs Cardio Narrative: 4 out of 6 systolic murmur loudest at left upper sternal border, irregularly irregular rhythm GI normal to inspection, nondistended, normoactive bowel sounds, soft to palpation and non-distended Palpation: tender epigastric Extremity no clubbing, cyanosis or edema Peripheral Pulses: Yes pulses 2+ throughout Skin no rashes or lesions noted, no wounds, skin turgor normal, No no jaundice, no petechiae and no mottling Neuro oriented x3, CN's II-XII intact bilaterally, moves all extremities and no focal motor deficits Neuro Narrative: Generalized weakness-mild Sensorium / Orientation: awake and alert Speech: speech normal Psych affect normal Results Lab / Micro Data Attestation: I reviewed the patient's lab results. Labs: Laboratory Results - last 24 hr 07/28/21 14:47: Lipase 61 L 07/28/21 14:53: PT 14.8, INR 1.2 Radiology Impression Abdomen/Pelvis CT 07/28/21 14:29 IMPRESSION: 1. Cardiomegaly. 2. Fatty replacement of pancreas. There is no visualized mass. 3. Small cyst in segment 3 of the liver. 4. Old granulomatous disease. 5. Hiatal hernia. 6. Sigmoid diverticulosis. 7. Right hip replacement. Electronically Signed: Bhavin Rosario DO at 16:58 EST Tel [phone], Service support , Assessment & Plan Assessment/Plan (1) Unintentional weight loss: (2) Jaundice: (3) Acute hepatitis: (4) Abdominal pain: PLAN: Abdominal pain with jaundice -Patient with intermittent epigastric pain for approximately 1 to 2 months -Positive weight loss -Abnormal LFTs -Highly suspect for pancreatic versus biliary malignancy -Antiemetics -Monitor for pain and start IV pain medication if needed -Patient with recent cholecystectomy and choledocholithiasis status post sphincterotomy and stone removal in August [address] Garcia -Avoid Tylenol Acute hepatitis -N-acetylcysteine for potential Tylenol use although based on my interview I highly doubt that Tylenol toxicity is the etiology of her liver enzyme elevation -MRCP in a.m. -Check acute hepatitis panel -Coags are normal -LDH is pending -Consult GI Unintentional weight loss -6 pound weight loss in the last month to 2 months -P.o. intake has decreased as patient states food does not taste the same -Highly suspicious for malignancy Diarrhea -Patient taking a probiotic that she bought on [employer] -Diarrhea improved with probiotic -Has been taking for approximately 1 week--> she does have the substance with her -Stools have been chalky Permanent atrial fibrillation -We will hold apixaban for now in case any procedures need to be performed -Continue metoprolol 12.5 mg twice daily Chronic right bundle branch block -No current issues GERD -Continue omeprazole Vitamin D deficiency -Hold vitamin D and reinitiate at discharge Osteoporosis -Continue calcium -Restart vitamin D upon discharge DVT prophylaxis -Hold home apixaban -Start Lovenox daily -SCDs CODE STATUS -DNR CCA okay for intubation as per discussion upon admission in the emergency department Charges/Coding Visit Charges Inpatient E&M: 40696 Init Hosp L3
[2021-07-28 18:28] LABS: International Normalized Ratio 1.3; Partial Thromboplast Time 30.2 Seconds (24.1-36.2)
[2021-07-28 18:33] LABS: LDH 297 U/L (84-246)
--- NOTE | 2021-07-28 18:50 | CASEMGMT ---
DANNI CM to room to meet with patient for initial transition planning/care coordination assessment. DANNI ACEVEDO introduced self and role at [facility]. Patient voices understanding and consents to assessment at this time. Patient is alert and oriented, sitting up on ER cart and answers all questions appropriately. Care providers, pharmacy, and demographics verified/updated at this time. PCP: Lucian Izquierdo Specialists: Wendie- cardiology Preferred Pharmacy: [facility] Insurance: [employer] Medicare PPO Prescription Benefit: yes Living Will/HPOA: Patient states she has a living will and HPOA is daughter Campos Hi. Patient made aware these forms are not on file at [facility] and may be brought in to be scanned into record. LNOK: Daughter Campos Hi and grandson Mike Card Living Arrangements: Patient lives alone in one story condo with one step to enter the home. Patient states independent with ADLs prior to hospitalization. Smoking/ETOH: Never smoker, drinks ETOH approximately 3-4 times a year Transportation: Patient drives self and denies transportation concerns. DME/HHC/SNF: Patient ambulates independently without the use of an assistive device. Patient has available in the home: walk-in shower with seat, grab bars, walker and cane. Patient denies need for further DME at this time. Previous HHC following hip surgery, unsure of name of agency. Denies previous SNF stays. Patient has no concerns with going home at time of discharge. CM to follow for any discharge planning/needs. Patient voices no concerns/needs at this time. Advised patient to ask for CM if any questions/concerns/needs arise. Voices understanding. Plan: home
[2021-07-28 19:31] LABS: Lactic Acid 0.6 mmol/L (0.4-1.9)
[2021-07-28 19:35] LABS: Acetaminophen (Tylenol) Level < 2.0 ug/mL (10.0-30.0)
[2021-07-28] MEDS: Ipratropium Bromide 0.06% NASAL SPRAY 1 SPRAY NASAL (22:15)
[2021-07-28] MEDS: Magnesium Chloride 64 MG Delay Rel.Tablet 128 MG PO (22:16)
[2021-07-28] MEDS: DiphenhydrAMINE 25 MG Capsule PO (22:16)
[2021-07-28] MEDS: Metoprolol Tartrate 25 MG Tablet 12.5 MG PO (22:16)
[2021-07-29] VITALS (7 sets, daily range): BP systolic 108–138; BP diastolic 64–80; PULSE 68–88; RESP 18; TEMP 36.6–37; O2SAT 92–98
[2021-07-29] MEDS: Ondansetron 4 MG/2 ML Vial IV (03:33)
[2021-07-29 05:48] LABS: Absolute Lymphocyte Count 0.52 X10^3/uL (0.83-4.51); Absolute Neutrophil Count 2.5 X10^3/uL (2.0-7.7); Basophil# 0.02 X10^3/uL; Basophil% 0.6 % (0-1); Eosinophil# 0.03 X10^3/uL; Eosinophils% 0.9 % (0-5); Hematocrit 40.1 % (37-47); Hemoglobin 13.3 g/dL (12.0-15.0); Lymphocyte # 0.52 X10^3/ul (0.83-4.51); Lymphocyte % 15.4 % (19-41); Mean Corp Hgb Conc 33.2 g/dL (32-36); Mean Corpuscular Hgb 30.4 pg (27.0-32.0); Mean Corpuscular Volume 91.8 fL (81-99); Mean Platelet Vol. 10.8 fl (6.2-12.0); Monocyte# 0.34 X10^3/uL; Monocyte% 10.1 % (0-10); NRBC Flagged by Analyzer 0 % (0-5); Neutrophil # 2.45 X10^3/uL (2.7-7.7); Neutrophil % 72.7 % (47-70); POSITIVE DIFFERENTIAL YES; Platelet Count 180 K/mm3 (150-450); RBC Distribution Width SD 47.3 fl (35.1-43.9); Red Blood Count 4.37 M/mm3 (4.2-5.4); White Blood Count 3.4 K/mm3 (4.4-11.0)
[2021-07-29 05:56] LABS: Differential Indicated SCAN CRITERIA MET
[2021-07-29 05:59] LABS: International Normalized Ratio 1.3; Prothrombin Time (Protime)PT. 15.4 SECONDS (11.7-14.9)
[2021-07-29] MEDS: Enoxaparin 40 MG/0.4 ML Syringe SC (06:13)
[2021-07-29 06:32] LABS: ALB/GLOB Ratio 0.9 RATIO (0.9-2.4); AST(SGOT) 276 U/L (15-37); Acetaminophen (Tylenol) Level < 2.0 ug/mL (10.0-30.0); Alanine Aminotransfer ALT/SGPT 690 U/L (13-56); Albumin, Serum 2.9 g/dL (3.2-5.0); Alkaline Phosphatase 444 U/L (45-117); Anion Gap 11 (5-15); BUN 7 mg/dL (7-18); BUN/Creat Ratio 12.6 RATIO (10-20); Calcium,Total 8.5 mg/dL (8.5-10.1); Chloride 102 mmol/L (98-107); Creatinine, Serum 0.56 mg/dL (0.55-1.02); EST Glomerular Filtration Rate 111 mL/min (>60); Est Glom Filt Rate - Afr Amer 134 mL/min (>60); Globulin 3.3 g/dL (2.2-4.2); Glucose 113 mg/dL (74-106); Magnesium 2.2 mg/dL (1.6-2.6); Phosphorus 2.6 mg/dL (2.5-4.9); Potassium 3.5 mmol/L (3.5-5.1); Protein, Total 6.2 g/dL (6.4-8.2); Sodium Level 140 mmol/L (136-145); Thyroid Stim Hormone (TSH) 2.38 uIU/mL (0.358-3.74)
--- NOTE | 2021-07-29 07:43 | PN.HOSP_ITS ---
Subjective Subjective Patient is an 80-year-old lady who presented with diarrhea as well as right upper quadrant abdominal pain with abnormal lab Objective Data Objective Data Vital Signs: Vital Signs Temp Pulse Resp BP Pulse Ox 97.8 F 78 18 138/80 H 94 07/29/21 02:30 07/29/21 02:30 07/29/21 02:30 07/29/21 02:30 07/29/21 02:30 Oxygen Delivery Method Room Air Weight: 65.9 kg Body Mass Index (BMI) 24.9 Intake & Output: Intake and Output for Last 24 Hours 07/27/21 07/28/21 07/29/21 23:59 23:59 23:59 Intake Total 1167.65 / 1667.65 1236.39 / 1236.39 Balance 1167.65 / 1667.65 1236.39 / 1236.39 Lab / Micro Data Result Diagrams: 07/29/21 04:33 07/29/21 04:33 Labs: Laboratory Results - last 24 hr 07/28/21 14:47: Lipase 61 L 07/28/21 14:47: Lactate Dehydrogenase 297 H 07/28/21 14:53: PT 14.8, INR 1.2 07/28/21 18:05: PT 15.0 H, INR 1.3, APTT 30.2 07/28/21 18:05: Acetaminophen < 2.0 L 07/28/21 18:05: Lactic Acid 0.6 07/29/21 04:33: WBC 3.4 L, RBC 4.37, Hgb 13.3, Hct 40.1, MCV 91.8, MCH 30.4, MCHC 33.2, RDW Std Deviation 47.3 H, RDW Coeff of Manuelito 14.0, Plt Count 180, MPV 10.8, Immature Gran % (Auto) 0.300, Neut % (Auto) 72.7 H, Lymph % (Auto) 15.4 L, [place] % (Auto) 10.1 H, Eos % (Auto) 0.9, Baso % (Auto) 0.6, Absolute Neuts (auto) 2.5, Absolute Lymphs (auto) 0.52 L, Nucleated RBC % 0, Diff Path Review November07/29/21 04:33: PT 15.4 H, INR 1.3 07/29/21 04:33: Sodium 140, Potassium 3.5, Chloride 102, Carbon Dioxide 27.0, Anion Gap 11, BUN 7, Creatinine 0.56, Estim Creat Clear Calc 38.10, Est GFR (MDRD) Af Amer 134, Est GFR (MDRD) Non-Af 111, BUN/Creatinine Ratio 12.6, Glucose 113 H, Calcium 8.5, Phosphorus 2.6, Magnesium 2.2, Total Bilirubin 3.30 H, AST 276 H, ALT 690 H, Alkaline Phosphatase 444 H, Total Protein 6.2 L, Albumin 2.9 L, Globulin 3.3, Albumin/Globulin Ratio 0.9, TSH 2.38 07/29/21 04:33: Acetaminophen < 2.0 L Radiography Diagnostic Testing: Radiology Impression Abdomen/Pelvis CT 07/28/21 14:29 IMPRESSION: 1. Cardiomegaly. 2. Fatty replacement of pancreas. There is no visualized mass. 3. Small cyst in segment 3 of the liver. 4. Old granulomatous disease. 5. Hiatal hernia. 6. Sigmoid diverticulosis. 7. Right hip replacement. Electronically Signed: Bhavin Rosario DO at 16:58 EST Tel [phone], Service support , Physical Exam Narrative GENERAL: cooperative HEENT: Atraumatic; EYES; icteric, NECK; supple, normal thyroid, RESPIRATORY: Diminished to auscultation CARDIOVASCULAR: Regular S1 S2, GI: soft, normoactive bowel sounds, : No Renal angle tenderness; EXTREMITIES: No edema, no clubbing, MUSCULOSKELETAL: no muscle waisting NEURO: Awake; no lateralizing signs. SKIN: No Rash PSYCH; Flat affect Assessment & Plan Assessment/Plan (1) Unintentional weight loss: (2) Jaundice: (3) Acute hepatitis: (4) Abdominal pain: PLAN: Patient is an 80-year-old lady who presented with diarrhea as well as right upper quadrant abdominal pain with abnormal labs. 1. Acute hepatitis ? Do suspect viral hepatitis possibly a given patient's associated diarrhea. Patient has however been admitted to regular nursing floor for symptomatic management. Acute hepatitis panel obtained in addition to obtaining MRCP with consultation placed to GI 2. Chronic A. fib ? Patient is on apixaban as well as metoprolol for rate control 3. GERD ? Patient is on PPI 4. Vitamin D deficiency ? Patient is on calcium and vitamin D plan is to continue 5. Osteoporosis ? Patient is on supplement with vitamin D and calcium 6. DVT prophylaxis ? On apixaban prior to admission Charges/Coding Visit Charges Inpatient E&M: 10358 Subs Hosp L2
--- NOTE | 2021-07-29 09:00 | MRI_ITS ---
STUDY: MR MRCP WITHOUT CONTRAST REASON FOR EXAM: Female, 80 years old. LFT elevation/pain TECHNIQUE: Standard MRCP technique was utilized. Three-dimensional reconstruction images of the biliary tree submitted. Limited by motion artifact. COMPARISON: CT yesterday FINDINGS: Gall Bladder: Gall bladder is surgically absent. Cystic duct: Cystic duct was not well visualized. Intrahepatic ducts: Mild intrahepatic bile duct dilation of the left more than right biliary system. Common hepatic duct: Dilated measuring 13 mm without filling defects. Common bile duct: Diffuse dilation measuring up to 11 mm. Filling defect in the proximal to mid common duct measures 6 mm best seen on image 11 series 10. Limited visualization of the common duct at the ampulla. Pancreatic duct: Pancreatic duct is not grossly dilated but limited in evaluation. MRI/MRCP Abdomen without Contrast IMPRESSION: Choledocholithiasis with mild to moderate biliary dilation. Electronically Signed: Elmer Hernandez MD ([place]) at 11:06 EST , Service support ,
[2021-07-29] MEDS: Ipratropium Bromide 0.06% NASAL SPRAY 1 SPRAY NASAL ×2 (10:23→20:19)
[2021-07-29] MEDS: Metoprolol Tartrate 25 MG Tablet 12.5 MG PO ×2 (10:23→20:18)
[2021-07-29] MEDS: Pantoprazole Sodium 20 MG Tablet PO (10:24)
[2021-07-29] MEDS: Ibuprofen 200 MG Tablet PO (13:03)
[2021-07-29 13:26] LABS: Pathologist Review Reviewed
[2021-07-29 14:20] LABS: International Normalized Ratio 1.1; Prothrombin Time (Protime)PT. 13.9 SECONDS (11.7-14.9)
--- NOTE | 2021-07-29 14:28 | CASEMGMT ---
Social Work Per RNCM, pt states she does have a living will and health care POA naming Campos Hi. Pt is aware documents are not on file at [facility]. KING Barahona
[2021-07-29 14:31] LABS: ALB/GLOB Ratio 0.9 RATIO (0.9-2.4); AST(SGOT) 193 U/L (15-37); Alanine Aminotransfer ALT/SGPT 612 U/L (13-56); Alkaline Phosphatase 425 U/L (45-117); Anion Gap 7 (5-15); BUN 7 mg/dL (7-18); Calcium,Total 8.8 mg/dL (8.5-10.1); Chloride 105 mmol/L (98-107); Creatinine, Serum 0.58 mg/dL (0.55-1.02); EST Glomerular Filtration Rate 105 mL/min (>60); Est Glom Filt Rate - Afr Amer 128 mL/min (>60); Globulin 3.3 g/dL (2.2-4.2); Glucose 95 mg/dL (74-106); Potassium 3.7 mmol/L (3.5-5.1); Protein, Total 6.3 g/dL (6.4-8.2); Sodium Level 141 mmol/L (136-145)
[2021-07-29 14:35] LABS: Acetaminophen (Tylenol) Level < 2.0 ug/mL (10.0-30.0)
--- NOTE | 2021-07-29 16:47 | CHAPLAIN ---
Type of Pastoral Visit _x__ Initial Visit ___ Follow-up Visit ___ On-call Visit ___ General Patient Visit ___ Spiritual Assessment ___ Family Conference ___ Bereavement ___ Rapid Response ___ Code Blue ___ Other (describe below) Pastoral Care Referral From _x__ Patient ___ Family ___ Nurse ___ Physician ___ Senior Structural Engineer ___ Anthropologist Physical ___ Other (describe below) Sacrament/Intervention _x__ Active listening ___ Anointing ___ Scientology ___ Bereavement ___ Communion ___ Lindsey exploration ___ ___ Life review _x__ Prayer ___ Reconciliation ___ Sacrament of Sick _x__ Supportive presence ___ Wedding ___ Other (describe below) Pastoral Comments patient feeling less anxious as a diagnosis was made and new guidance given
--- NOTE | 2021-07-29 17:26 | CON.PCM.GI_ITS ---
HPI Consult Data Date of Consult: 07/29/21 HPI Narrative HPI Narrative: DAT GIFFORD, is a 80 F who presents to [facility] with abnormal liver function tests and abnormal liver enzymes. Patient says that she has been having some intermittent abdominal pain that was similar to when she had acute choledocholithiasis in August 2020. Patient complains of midepigastric pain radiating to the shoulder. After ERCP in 2020 her liver enzymes and liver function test never went back down to normal. 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 In the ED her INR was 1.2, on Eliquis. Her bilirubin was 6.2, AST of 791, ALT of 1039 and alkaline phosphatase of 595. She had a CT scan abdomen pelvis which did show cardiomegaly with fatty replacement of the pancreas. Did not show any significant bile duct dilation. I requested that she get an MRCP and I suspected that her significant elevation enzyme activity was secondary to acetaminophen. She was started on N-acetylcysteine after her acetaminophen level came back less than 2.5. Currently she is not on acetaminophen at this time. I requested that she get a repeat liver function test and she get an MRCP. The MRCP shows a large filling defect around millimeters in mid to distal common bile duct. 16 review of systems are negative except as per positive mentioned HPI. [facility] Medical History (Updated 07/29/21 @ 17:[address] Mayfield Friend, DO) Atrial fibrillation, permanent COPD (chronic obstructive pulmonary disease) Dilatation of aorta Diverticulosis of colon without diverticulitis GERD (gastroesophageal reflux disease) Gilbert disease HLD (hyperlipidemia) Left inguinal hernia Non-rheumatic mitral regurgitation Nonrheumatic mitral (valve) prolapse Positive colorectal cancer screening using Cologuard test PVD (peripheral vascular disease) RBBB (right bundle branch block) Home Medications calcium carbonate-vitamin D3 1 ea PO BID 01/05/16 [History Last Taken 07/27/21] cholecalciferol (vitamin D3) 50,000 unit PO CEDILLO 01/05/16 [History Last Taken 07/26/21] omega-3 fatty acids 1,000 mg capsule 1,000 mg PO DAILY 02/20/19 [History Last Taken 07/27/21] acetaminophen 500 mg tablet 500 mg PO Q6H PRN tab 07/28/20 [History Last Taken 07/27/21] magnesium oxide 400 mg PO QHS 08/18/20 [History Last Taken 07/27/21] omeprazole 20 mg PO DAILY #30 cap 08/18/20 [Rx Last Taken 07/28/21] vit no.[id number] 1 ea PO DAILY 08/18/20 [History Last Taken 07/27/21] ipratropium bromide 1 spray NASAL BID 08/22/20 [History Last Taken 07/28/21] Bio Complete 3 2 cap PO/SL BID 07/28/21 [History Last Taken 07/28/21] Manoxadyl 1 tsp PO/SL DAILY 07/28/21 [History Last Taken 1 Week Ago ~07/21/21] apixaban [Eliquis] 5 mg PO DAILY 07/28/21 [History Last Taken 07/28/21] metoprolol tartrate 12.5 mg PO BID 07/28/21 [History Last Taken 07/28/21] Allergy/AdvReac Type Severity Reaction Status Date / Time oxycodone AdvReac PASSING Verified 07/28/21 14:18 OUT phenazopyridine HCl AdvReac Upset Verified 07/28/21 14:18 [From Pyridium] Stomach Family History Mother Diabetes Brother Diabetes Surgical History History of appendectomy History of ERCP History of repair of hiatal hernia History of surgery on arm Hx laparoscopic cholecystectomy (~09/09/20) Hx of umbilical hernia repair S/P inguinal hernia repair Social History Smoking Status: Never smoker second hand exposure: No alcohol intake: current substance use type: does not use caffeine: Yes what type of physical activity do you participate in: walking and weight training frequency: 3-4 times per week seatbelt use: always ROS Review of Systems ROS Unobtainable: other Constitutional Constitutional: Denies fatigue, fever(s), poor appetite, weight gain or weight loss ENT HEENT: Denies mouth lesions Cardiovascular Cardiovascular: Denies abdominal bloating, abdominal edema or abdominal pain Respiratory/Chest Respiratory/Chest: Denies change in mental status, change in phlegm color, chest congestion or chest tightness Gastrointestinal Gastrointestinal: Denies belching, bloating, change in bowel habits, change in stool character, chewing difficulty, coffee ground emesis, constipation, cramping, diarrhea, dyspepsia, dysphagia, early satiety, excessive flatus, fecal incontinence, heartburn, hematemesis, hematochezia, hemorrhoids, loose stools, melena, nausea, odynophagia, rectal bleeding, tenesmus, vomiting or weight ch anges Genitourinary Genitourinary: Denies abdominal discomfort, burning urination or itching Musculoskeletal Musculoskeletal: Reports as per HPI; Denies muscle weakness or myalgias Integumentary Integumentary: Denies jaundice Neurologic Neurologic: Denies lack of coordination or weakness Psychiatric Psychiatric: Denies confusion, depression, memory loss, mood swings, paranoia or suicidal ideation Endocrine Endocrinology: Denies systems reviewed and no addt'l complaints, except as documented Hematologic/Lymphatic Hematologic/Lymphatic: Denies anemia, easy bleeding, easy bruising or lymphadenopathy Allergic/Immunologic Allergic/Immunologic: Denies systems reviewed and no addt'l complaints, except as documented Physical Exam Const alert General Appearance: cooperative Orientation / Consciousness: oriented to person HEENT hearing grossly normal bilaterally Head and Scalp: normal to inspection Face and Sinus: face symmetric Nose: external nose normal Mouth: oral and palatal mucosa normal Eyes conjunctivae normal General Eye: normal appearance of both eyes Neck full ROM General: normal visual inspection Lymph Lymphatic: no lymphadenopathy noted Chest inspection of chest normal and palpation of chest normal Chest: symmetrical chest wall rise Resp normal respiratory effort Effort and Inspection: able to speak in complete sentences Cardio regular rate GI non-distended Palpation: tender Percussion: normal to percussion Rectal Exam: deferred Neuro Speech: speech normal Gait (Neuro): normal gait Lab / Micro Data Result Diagrams: 07/29/21 04:33 07/29/21 13:45 Labs: Laboratory Results - last 24 hr 07/28/21 14:47: Lactate Dehydrogenase 297 H 07/28/21 18:05: PT 15.0 H, INR 1.3, APTT 30.2 07/28/21 18:05: Acetaminophen < 2.0 L 07/28/21 18:05: Lactic Acid 0.6 07/29/21 04:33: WBC 3.4 L, RBC 4.37, Hgb 13.3, Hct 40.1, MCV 91.8, MCH 30.4, MCHC 33.2, RDW Std Deviation 47.3 H, RDW Coeff of Manuelito 14.0, Plt Count 180, MPV 10.8, Immature Gran % (Auto) 0.300, Neut % (Auto) 72.7 H, Lymph % (Auto) 15.4 L, [place] % (Auto) 10.1 H, Eos % (Auto) 0.9, Baso % (Auto) 0.6, Absolute Neuts (auto) 2.5, Absolute Lymphs (auto) 0.52 L, Nucleated RBC % 0, Diff Path Review Reviewed 07/29/21 04:33: PT 15.4 H, INR 1.3 07/29/21 04:33: Sodium 140, Potassium 3.5, Chloride 102, Carbon Dioxide 27.0, Anion Gap 11, BUN 7, Creatinine 0.56, Estim Creat Clear Calc 38.10, Est GFR (MDRD) Af Amer 134, Est GFR (MDRD) Non-Af 111, BUN/Creatinine Ratio 12.6, Glucose 113 H, Calcium 8.5, Phosphorus 2.6, Magnesium 2.2, Total Bilirubin 3.30 H, AST 276 H, ALT 690 H, Alkaline Phosphatase 444 H, Total Protein 6.2 L, Albumin 2.9 L, Globulin 3.3, Albumin/Globulin Ratio 0.9, TSH 2.38 07/29/21 04:33: Acetaminophen < 2.0 L 07/29/21 13:45: Sodium 141, Potassium 3.7, Chloride 105, Carbon Dioxide 29.0, Anion Gap 7, BUN 7, Creatinine 0.58, Estim Creat Clear Calc 38.10, Est GFR (MDRD) Af Amer 128, Est GFR (MDRD) Non-Af 105, BUN/Creatinine Ratio 12.0, Glucose 95, Calcium 8.8, Total Bilirubin 2.60 H, AST 193 H, ALT 612 H, Alkaline Phosphatase 425 H, Total Protein 6.3 L, Albumin 3.0 L, Globulin 3.3, Albumin/Globulin Ratio 0.9 07/29/21 13:45: PT 13.9, INR 1.1 07/29/21 13:45: Acetaminophen < 2.0 L Radiology Impression MRCP 07/29/21 09:00 IMPRESSION: Choledocholithiasis with mild to moderate biliary dilation. Electronically Signed: Elmer Hernandez MD ([place]) at 11:06 EST , Service support , Assessment & Plan Assessment/Plan (1) Choledocholithiasis: PLAN: I Believe that her abdominal pain and diarrhea was secondary to choledocholithiasis. That makes sense why she would have diarrhea if her bile duct is obstructed. He will need to undergo an ERCP with stone removal and possible stent placement. (2) Acute hepatitis: PLAN: I believe that her significant elevation of liver enzymes was secondary to bili obstruction and concomitant Tylenol. She does not did not take Mucomyst anymore. Charges/Coding Visit Charges Inpatient E&M: 54961 Init Hosp L3
[2021-07-29] MEDS: Magnesium Chloride 64 MG Delay Rel.Tablet 128 MG PO (20:18)
[2021-07-29] MEDS: DiphenhydrAMINE 25 MG Capsule PO (20:19)
[2021-07-30] VITALS (12 sets, daily range): BP systolic 105–138; BP diastolic 66–92; PULSE 69–87; RESP 16–20; TEMP 36.6–37.3; O2SAT 93–97; BMI 24.7
[2021-07-30 05:40] LABS: Absolute Lymphocyte Count 0.64 X10^3/uL (0.83-4.51); Absolute Neutrophil Count 1.9 X10^3/uL (2.0-7.7); Basophil# 0.03 X10^3/uL; Eosinophil# 0.13 X10^3/uL; Eosinophils% 4.3 % (0-5); Hematocrit 36.3 % (37-47); Hemoglobin 11.9 g/dL (12.0-15.0); Lymphocyte # 0.64 X10^3/ul (0.83-4.51); Mean Corp Hgb Conc 32.8 g/dL (32-36); Mean Corpuscular Hgb 30.7 pg (27.0-32.0); Mean Corpuscular Volume 93.8 fL (81-99); Mean Platelet Vol. 10.3 fl (6.2-12.0); Monocyte# 0.38 X10^3/uL; Monocyte% 12.5 % (0-10); NRBC Flagged by Analyzer 0 % (0-5); Neutrophil # 1.86 X10^3/uL (2.7-7.7); Neutrophil % 60.9 % (47-70); Platelet Count 162 K/mm3 (150-450); RBC Distribution Width CV 14.4 % (11.6-14.6); RBC Distribution Width SD 49.3 fl (35.1-43.9); Red Blood Count 3.87 M/mm3 (4.2-5.4); White Blood Count 3.1 K/mm3 (4.4-11.0)
[2021-07-30 06:02] LABS: AST(SGOT) 102 U/L (15-37); Alanine Aminotransfer ALT/SGPT 443 U/L (13-56); Albumin, Serum 2.7 g/dL (3.2-5.0); Alkaline Phosphatase 338 U/L (45-117); Anion Gap 7 (5-15); BUN 7 mg/dL (7-18); Bilirubin, Direct 0.55 mg/dL (0.00-0.30); Calcium,Total 8.3 mg/dL (8.5-10.1); Chloride 106 mmol/L (98-107); Creatinine, Serum 0.58 mg/dL (0.55-1.02); EST Glomerular Filtration Rate 106 mL/min (>60); Est Glom Filt Rate - Afr Amer 128 mL/min (>60); Globulin 2.8 g/dL (2.2-4.2); Glucose 96 mg/dL (74-106); Magnesium 2.3 mg/dL (1.6-2.6); Potassium 3.7 mmol/L (3.5-5.1); Protein, Total 5.5 g/dL (6.4-8.2); Sodium Level 142 mmol/L (136-145)
[2021-07-30 06:08] LABS: HEPATITIS B SURFACE AG Negative (Negative); Hepatitis A IgM Antibody Negative (Negative); Hepatitis B Core AB IgM Negative (Negative)
--- NOTE | 2021-07-30 07:23 | PN.HOSP_ITS ---
Subjective Subjective MRCP demonstrated a filling defects. consultation placed to GI. Patient was seen by Dr. Rubi his notes and recommendations reviewed Plan is for patient to undergo an ERCP with stone removal and possible stent placement. Objective Data Objective Data Vital Signs: Vital Signs Temp Pulse Resp BP Pulse Ox 98.1 F 74 18 114/68 94 07/30/21 02:09 07/30/21 02:09 07/30/21 02:09 07/30/21 02:09 07/30/21 02:09 Oxygen Delivery Method Room Air Weight: 65.9 kg Body Mass Index (BMI) 24.9 Intake & Output: Intake and Output for Last 24 Hours 07/28/21 07/29/21 07/30/21 23:59 23:59 23:59 Intake Total 1167.65 / 1667.65 1756.39 / 2056.39 300 / 300 Balance 1167.65 / 1667.65 1756.39 / 2056.39 300 / 300 Lab / Micro Data Result Diagrams: 07/30/21 05:20 07/30/21 05:20 Labs: Laboratory Results - last 24 hr 07/29/21 04:33: Diff Path Review Reviewed 07/29/21 13:45: Sodium 141, Potassium 3.7, Chloride 105, Carbon Dioxide 29.0, Anion Gap 7, BUN 7, Creatinine 0.58, Estim Creat Clear Calc 38.10, Est GFR (MDRD) Af Amer 128, Est GFR (MDRD) Non-Af 105, BUN/Creatinine Ratio 12.0, Glucose 95, Calcium 8.8, Total Bilirubin 2.60 H, AST 193 H, ALT 612 H, Alkaline Phosphatase 425 H, Total Protein 6.3 L, Albumin 3.0 L, Globulin 3.3, Albumin/Globulin Ratio 0.9 07/29/21 13:45: PT 13.9, INR 1.1 07/29/21 13:45: Acetaminophen < 2.0 L 07/30/21 05:20: WBC 3.1 L, RBC 3.87 L, Hgb 11.9 L, Hct 36.3 L, MCV 93.8, MCH 30.7, MCHC 32.8, RDW Std Deviation 49.3 H, RDW Coeff of Manuelito 14.4, Plt Count 162, MPV 10.3, Immature Gran % (Auto) 0.300, Neut % (Auto) 60.9, Lymph % (Auto) 21.0, [place] % (Auto) 12.5 H, Eos % (Auto) 4.3, Baso % (Auto) 1.0, Absolute Neuts (auto) 1.9 L, Absolute Lymphs (auto) 0.64 L, Nucleated RBC % 0 07/30/21 05:20: Sodium 142, Potassium 3.7, Chloride 106, Carbon Dioxide 29.0, Anion Gap 7, BUN 7, Creatinine 0.58, Estim Creat Clear Calc 38.10, Est GFR (MDRD) Af Amer 128, Est GFR (MDRD) Non-Af 106, BUN/Creatinine Ratio 12.0, Glucose 96, Calcium 8.3 L, Magnesium 2.3, Total Bilirubin 2.30 H, Direct Bilirubin 0.55 H, AST 102 H, ALT 443 H, Alkaline Phosphatase 338 H, Total Protein 5.5 L, Albumin 2.7 L, Globulin 2.8 Radiography Diagnostic Testing: Radiology Impression MRCP 07/29/21 09:00 IMPRESSION: Choledocholithiasis with mild to moderate biliary dilation. Electronically Signed: Elmer Hernandez MD (Brooks) at 11:06 EST , Service support , Physical Exam Narrative GENERAL: cooperative HEENT: Atraumatic; EYES; icteric, NECK; supple, normal thyroid, RESPIRATORY: Diminished to auscultation CARDIOVASCULAR: Regular S1 S2, GI: soft, normoactive bowel sounds, : No Renal angle tenderness; EXTREMITIES: No edema, no clubbing, MUSCULOSKELETAL: no muscle waisting NEURO: Awake; no lateralizing signs. SKIN: No Rash PSYCH; Flat affect Assessment & Plan Assessment/Plan (1) Unintentional weight loss: (2) Jaundice: (3) Acute hepatitis: (4) Abdominal pain: PLAN: Patient is an 80-year-old lady who presented with diarrhea as well as right upper quadrant abdominal pain with abnormal labs. 1. Acute cholelithiasis ? Patient presented with abdominal pain diarrhea and elevated liver function test. MRCP demonstrated a filling defects. Admitted to regular nursing floor with consultation placed to GI. Patient was seen by Dr. Rubi his notes and r ecommendations reviewed -07/30/2021. Plan is for patient to undergo an ERCP with stone removal and possible stent placement. 2. Chronic A. fib ? Patient is on apixaban as well as metoprolol for rate control 3. GERD ? Patient is on PPI 4. Vitamin D deficiency ? Patient is on calcium and vitamin D plan is to continue 5. Osteoporosis ? Patient is on supplement with vitamin D and calcium 6. DVT prophylaxis ? On apixaban prior to admission Charges/Coding Visit Charges Inpatient E&M: 24091 Subs Hosp L2
--- NOTE | 2021-07-30 08:06 | EKG12_ITS ---
Test Reason : PRE OP Blood Pressure : / mmHG Vent. Rate : 077 BPM Atrial Rate : 129 BPM P-R Int : 000 ms QRS Dur : 128 ms QT Int : 394 ms P-R-T Axes : 000 113 -12 degrees QTc Int : 445 ms Atrial fibrillation with premature ventricular or aberrantly conducted complexes Right bundle branch block Septal infarct , age undetermined Abnormal ECG Confirmed by ROSI RIOS, [place] ([id number]), editor farm journal OLIMPIA GREENBERG ([id number]) on 07/31/2021 8:16:36 AM Referred By: JASIEL Confirmed By:BRITANY ARANDA MD
[2021-07-30 08:19] LABS: Hep C Antibodies 0.1 s/co ratio (0.0-0.9)
[2021-07-30] MEDS: Pantoprazole Sodium 20 MG Tablet PO (10:14)
[2021-07-30] MEDS: Metoprolol Tartrate 25 MG Tablet 12.5 MG PO ×2 (10:14→21:43)
[2021-07-30] MEDS: Ipratropium Bromide 0.06% NASAL SPRAY 1 SPRAY NASAL ×2 (10:16→21:46)
[2021-07-30] MEDS: Ibuprofen 400 MG Tablet PO (14:01)
[2021-07-30] MEDS: 0.9% Normal Saline 1,000 ML 15 ML IV (18:50)
--- NOTE | 2021-07-30 19:00 | RAD_ITS ---
EXAM: INTRAOPERATIVE CHOLANGIOGRAM FLUOROSCOPY TIME: 144Seconds RADIATION DOSE: 25 mGy TOTAL NUMBER OF IMAGES: 4 COMPARISON: None. PROVIDED CLINICAL HISTORY: STONES PAIN TECHNIQUE: The examination was performed with physician in attendance. Under fluoroscopic observation, fluoroscopic images were obtained in the operating room. FINDINGS: First image demonstrates surgical instruments overlying the [id number]. Contrast is identified in a cannulated common bile duct. Retrograde contrast is notseen in the pancreatic duct. Contrast is not noted in the proximal duodenum. Contrast is seen in the intrahepatic ducts. IMPRESSION: Fluoroscopic assistance images were obtained. Pertinent findings noted above. Electronically Signed: William Avendano MD at 20:03 EST , Service support , RAD/ERCP Biliary Only
--- NOTE | 2021-07-30 19:42 | OP.ERCP_ITS ---
Patient Name: Josefina Fabian Procedure Date: 07/30/2021 5:38 PM Date of : 1940 Age: 80 Procedure: ERCP Indications: Bile duct stone(s) Providers: Chaparro Rubi DO Medicines: General Anesthesia Patient Profile: This is an 80 year old female. Refer to note in patient chart for documentation of history and physical. Patient has symptoms of acute jaundice. She is status post ERCP for stone removal one year ago. Complications: No immediate complications. Procedure: Pre-Anesthesia Assessment: - Prior to the procedure, a History and Physical was performed, and patient medications and allergies were reviewed. The risks and benefits of the procedure and the sedation options and risks were discussed with the patient. All questions were answered and informed consent was obtained. Patient identification and proposed procedure were verified by the physician in the pre-procedure area. Mental Status Examination: alert and oriented. Airway Examination: normal oropharyngeal airway and neck mobility. Respiratory Examination: clear to auscultation. CV Examination: normal. Prophylactic Antibiotics: The patient does not require prophylactic antibiotics. Prior Anticoagulants: The patient has taken no previous anticoagulant or antiplatelet agents. ASA Grade Assessment: II - A patient with mild systemic disease. After reviewing the risks and benefits, the patient was deemed in satisfactory condition to undergo the procedure. The anesthesia plan was to use moderate sedation / analgesia (conscious sedation). Immediately prior to administration of medications, the patient was re-assessed for adequacy to receive sedatives. The heart rate, respiratory rate, oxygen saturations, blood pressure, adequacy of pulmonary ventilation, and response to care were monitored throughout the procedure. The physical status of the patient was re-assessed after the procedure. After obtaining informed consent, the scope was passed under direct vision. Throughout the procedure, the patient's blood pressure, pulse, and oxygen saturations were monitored continuously. The duodenoscope was introduced through the mouth, and advanced to the duodenum and used to inject contrast into the bile duct. The ERCP was accomplished without difficulty. The patient tolerated the procedure well. Moderate Sedation: Moderate (conscious) sedation was personally administered by an anesthesia professional. The following parameters were monitored: oxygen saturation, heart rate, blood pressure, and response to care. Total physician intraservice time was 15 minutes. Scope In: 7:15:55 PM Scope Out: 7:32:28 PM Total Procedure Duration Time 0 hours 16 minutes 33 seconds Findings: The scout leaser film was normal. The esophagus was successfully intubated under direct vision. The scope was advanced to a normal major papilla in the descending duodenum without detailed examination of the pharynx, larynx and associated structures, and upper GI tract. The upper GI tract was grossly normal. The bile duct was deeply cannulated with the short-nosed traction sphincterotome. Contrast was injected. I personally interpreted the bile duct images. There was brisk flow of contrast through the ducts. Opacification of the lower third of the main bile duct was successful. The maximum diameter of the ducts was 7 mm. The lower third of the main bile duct contained two stones, the largest of which was 7 mm in diameter. The main bile duct was diffusely dilated, with a stone causing an obstruction. The largest diameter was 9 mm. A straight Roadrunner wire was passed into the biliary tree. A 5 mm biliary sphincterotomy was made with a traction (standard) sphincterotome using ERBE electrocautery. The sphincterotomy oozed blood. The biliary tree was swept with a 12 mm balloon starting at the lower third of the main duct. Sludge was swept from the duct. All stones were removed. Impression: - The entire main bile duct was dilated, with a stone causing an obstruction. - Choledocholithiasis was found. Complete removal was accomplished by biliary sphincterotomy and balloon extraction. - A biliary sphincterotomy was performed. - The biliary tree was swept. Procedure Code(s): --- Professional --- 49418, Endoscopic retrograde cholangiopancreatography (ERCP); with removal of calculi/debris from biliary/pancreatic duct(s) 04002, Endoscopic retrograde cholangiopancreatography (ERCP); with sphincterotomy/papillotomy 30808, Endoscopic catheterization of the biliary ductal system, radiological supervision and interpretation CPT copyright 2017 [employer]. All rights reserved. The codes documented in this report are preliminary and upon real estate firm manager review may be revised to meet current compliance requirements. Chaparro Rubi DO 07/30/2021 7:42:05 PM This report has been signed electronically. Number of Addenda: 0 Note Initiated On: 07/30/2021 5:38 PM
--- NOTE | 2021-07-30 19:43 | OP.CCLET_ITS ---
07/30/2021 Lucian Izquierdo [address] [place] [address] Re : ERCP procedure for Josefina Fabian Dear Dr. Izquierdo This procedure was performed on July. My impressions and recommendations are as follows: Impressions : - The entire main bile duct was dilated, with a stone causing an obstruction. - Choledocholithiasis was found. Complete removal was accomplished by biliary sphincterotomy and balloon extraction. - A biliary sphincterotomy was performed. - The biliary tree was swept. Recommendations : My findings are described in the full procedure note, which is enclosed. If I can be of further assistance, please feel free to contact me at . Sincerely, Chaparro Rubi, 07/30/2021 7:42:05 PM This report has been signed electronically.
[2021-07-30] MEDS: DiphenhydrAMINE 25 MG Capsule PO (21:43)
[2021-07-30] MEDS: Magnesium Chloride 64 MG Delay Rel.Tablet 128 MG PO (21:46)
[2021-07-30] MEDS: Ondansetron 4 MG/2 ML Vial IV (22:34)
[2021-07-31 00:41] VITALS: BP 116/76; PULSE 68; RESP 16; TEMP 36.9; O2SAT 96
[2021-07-31 05:17] VITALS: BP 111/67; PULSE 60; RESP 16; TEMP 36.6; O2SAT 96
[2021-07-31] MEDS: Enoxaparin 40 MG/0.4 ML Syringe SC (05:18)
[2021-07-31] MEDS: Mag Hydrox/Al Hydrox/Simeth 30 ML UDC 15 ML PO (05:20)
[2021-07-31 05:33] LABS: Absolute Lymphocyte Count 0.69 X10^3/uL (0.83-4.51); Absolute Neutrophil Count 2.8 X10^3/uL (2.0-7.7); Basophil# 0.02 X10^3/uL; Basophil% 0.5 % (0-1); Eosinophil# 0.06 X10^3/uL; Eosinophils% 1.5 % (0-5); Hematocrit 37.4 % (37-47); Hemoglobin 12.1 g/dL (12.0-15.0); Lymphocyte # 0.69 X10^3/ul (0.83-4.51); Lymphocyte % 17.7 % (19-41); Mean Corp Hgb Conc 32.4 g/dL (32-36); Mean Corpuscular Hgb 30.6 pg (27.0-32.0); Mean Corpuscular Volume 94.4 fL (81-99); Mean Platelet Vol. 10.1 fl (6.2-12.0); Monocyte# 0.32 X10^3/uL; Monocyte% 8.2 % (0-10); NRBC Flagged by Analyzer 0 % (0-5); Neutrophil # 2.81 X10^3/uL (2.7-7.7); Neutrophil % 72.1 % (47-70); Platelet Count 159 K/mm3 (150-450); RBC Distribution Width SD 48.7 fl (35.1-43.9); Red Blood Count 3.96 M/mm3 (4.2-5.4); White Blood Count 3.9 K/mm3 (4.4-11.0)
[2021-07-31 05:57] LABS: AST(SGOT) 113 U/L (15-37); Alanine Aminotransfer ALT/SGPT 381 U/L (13-56); Albumin, Serum 2.6 g/dL (3.2-5.0); Alkaline Phosphatase 473 U/L (45-117); Anion Gap 5 (5-15); BUN 12 mg/dL (7-18); BUN/Creat Ratio 19.2 RATIO (10-20); Bilirubin, Direct 0.53 mg/dL (0.00-0.30); Calcium,Total 8.2 mg/dL (8.5-10.1); Chloride 104 mmol/L (98-107); Creatinine, Serum 0.63 mg/dL (0.55-1.02); EST Glomerular Filtration Rate 97 mL/min (>60); Est Glom Filt Rate - Afr Amer 117 mL/min (>60); Globulin 2.8 g/dL (2.2-4.2); Glucose 90 mg/dL (74-106); Protein, Total 5.4 g/dL (6.4-8.2); Sodium Level 139 mmol/L (136-145)
[2021-07-31 07:16] VITALS: O2SAT 98
--- NOTE | 2021-07-31 07:20 | PCM.PN.HOSP ---
Subjective Subjective Patient underwent ERCP on July by Dr. Rubi. Findings are as below - The entire main bile duct was dilated, with a stone causing an obstruction. - Choledocholithiasis was found. Complete removal was accomplished by biliary sphincterotomy and balloon extraction. - A biliary sphincterotomy was performed. - The biliary tree was swept. Objective Data Objective Data Vital Signs: Vital Signs Temp Pulse Resp BP Pulse Ox 97.8 F 60 16 111/67 96 07/31/21 05:17 07/31/21 05:17 07/31/21 05:17 07/31/21 05:17 07/31/21 05:17 Oxygen Flow Rate (L/min) 2 Oxygen Delivery Method Nasal Cannula Weight: 65.9 kg Body Mass Index (BMI) 24.7 Intake & Output: Intake and Output for Last 24 Hours 07/29/21 07/30/21 07/31/21 23:59 23:59 23:59 Intake Total 1756.39 / 2056.39 412.5 / 612.5 400 / 400 Balance 1756.39 / 2056.39 412.5 / 612.5 400 / 400 Lab / Micro Data Result Diagrams: 07/31/21 05:13 07/31/21 05:13 Labs: Laboratory Results - last 24 hr 07/29/21 04:33: Hepatitis A IgM Ab Negative, Hep Bs Antigen Negative, Hep B Core IgM Ab Negative, Hepatitis C Ab (EIA) 0.1 07/31/21 05:13: WBC 3.9 L, RBC 3.96 L, Hgb 12.1, Hct 37.4, MCV 94.4, MCH 30.6, MCHC 32.4, RDW Std Deviation 48.7 H, RDW Coeff of Manuelito 14.0, Plt Count 159, MPV 10.1, Immature Gran % (Auto) 0.000, Neut % (Auto) 72.1 H, Lymph % (Auto) 17.7 L, [place]offey % (Auto) 8.2, Eos % (Auto) 1.5, Baso % (Auto) 0.5, Absolute Neuts (auto) 2.8, Absolute Lymphs (auto) 0.69 L, Nucleated RBC % 0 07/31/21 05:13: Sodium 139, Potassium 4.0, Chloride 104, Carbon Dioxide 30.0, Anion Gap 5, BUN 12, Creatinine 0.63, Estim Creat Clear Calc 38.10, Est GFR (MDRD) Af Amer 117, Est GFR (MDRD) Non-Af 97, BUN/Creatinine Ratio 19.2, Glucose 90, Calcium 8.2 L, Total Bilirubin 2.00 H, Direct Bilirubin 0.53 H, AST 113 H, ALT 381 H, Alkaline Phosphatase 473 H, Total Protein 5.4 L, Albumin 2.6 L, Globulin 2.8 Micro: Microbiology 07/30/21 17:15 Nasal Secretion SARS-CoV-2 Antigen (Rapid) - Final Radiography Diagnostic Testing: Radiology Impression ERCP X-Ray 07/30/21 19:00 Physical Exam Narrative GENERAL: cooperative HEENT: Atraumatic; EYES; icteric, NECK; supple, normal thyroid, RESPIRATORY: Diminished to auscultation CARDIOVASCULAR: Regular S1 S2, GI: soft, normoactive bowel sounds, : No Renal angle tenderness; EXTREMITIES: No edema, no clubbing, MUSCULOSKELETAL: no muscle waisting NEURO: Awake; no lateralizing signs. SKIN: No Rash PSYCH; Flat affect Assessment & Plan Assessment/Plan (1) Unintentional weight loss: (2) Jaundice: (3) Acute hepatitis: (4) Abdominal pain: PLAN: Patient is an 80-year-old lady who presented with diarrhea as well as right upper quadrant abdominal pain with abnormal labs. 1. Acute cholelithiasis ? Patient presented with abdominal pain diarrhea and elevated liver function test. MRCP demonstrated a filling defects. Admitted to regular nursing floor with consultation placed to GI. Patient was seen by Dr. Rubi his notes and recommendations reviewed -07/30/2021. Plan is for patient to undergo an ERCP with stone removal and possible stent placement. -07/31/2021; Patient underwent ERCP on July by Dr. Rubi. Findings are as below - The entire main bile duct was dilated, with a stone causing an obstruction. - Choledocholithiasis was found. Complete removal was accomplished by biliary sphincterotomy and balloon extraction. - A biliary sphincterotomy was performed. - The biliary tree was swept. 2. Chronic A. fib ? Patient is on apixaban as well as metoprolol for rate control 3. GERD ? Patient is on PPI 4. Vitamin D deficiency ? Patient is on calcium and vitamin D plan is to continue 5. Osteoporosis ? Patient is on supplement with vitamin D and calcium 6. DVT prophylaxis ? On apixaban prior to admission Charges/Coding Visit Charges Inpatient E&M: 51122 Subs Hosp L2
[2021-07-31 09:30] VITALS: BP 111/75; PULSE 65; RESP 16; TEMP 36.7; O2SAT 95
[2021-07-31 09:42] VITALS: PULSE 66
[2021-07-31] MEDS: Pantoprazole Sodium 20 MG Tablet PO (09:42)
[2021-07-31] MEDS: Metoprolol Tartrate 25 MG Tablet 12.5 MG PO (09:42)
[2021-07-31] MEDS: 0.9% Saline Lock 10 ML Syringe IV (09:42)
[2021-07-31] MEDS: Ipratropium Bromide 0.06% NASAL SPRAY 1 SPRAY NASAL (09:42)
--- NOTE | 2021-07-31 09:46 | DS.PCM_ITS ---
Providers Date of Admission: 07/28/21 Primary Care Physician: Dr. Lucian Izquierdo MD Reason For Visit: ACUTE HEPATITIS Diagnosis Discharge Diagnosis (1) Unintentional weight loss: Status: Acute Code(s): R63.4 - Abnormal weight loss (2) Jaundice: Status: Acute Code(s): R17 - Unspecified jaundice (3) Acute hepatitis: Status: Acute Code(s): B17.9 - Acute viral hepatitis, unspecified (4) Abdominal pain: Status: Acute Code(s): R10.9 - Unspecified abdominal pain Medications at Discharge Home Medications calcium carbonate-vitamin D3 1 ea PO BID 01/05/16 cholecalciferol (vitamin D3) 50,000 unit PO CEDILLO 01/05/16 omega-3 fatty acids 1,000 mg capsule 1,000 mg PO DAILY 02/20/19 magnesium oxide 400 mg PO QHS 08/18/20 omeprazole 20 mg PO DAILY #30 cap 08/18/20 vit [id number] 1 ea PO DAILY 08/18/20 ipratropium bromide 1 spray NASAL BID 08/22/20 Bio Complete 3 2 cap PO/SL BID 07/28/21 Eliquis 5 mg PO DAILY 07/28/21 Manoxadyl 1 tsp PO/SL DAILY 07/28/21 metoprolol tartrate 12.5 mg PO BID 07/28/21 Hospital Course Summary of Care Provided Minutes Spent on Discharge: 35 Hospital Course: Patient is an 80-year-old lady who presented with diarrhea as well as right upper quadrant abdominal pain with abnormal labs. 1. Acute cholelithiasis ? Patient presented with abdominal pain diarrhea and elevated liver function test. MRCP demonstrated a filling defects. Admitted to regular nursing floor with consultation placed to GI. Patient was seen by Dr. Rubi his notes and recommendations reviewed -07/30/2021. Plan is for patient to undergo an ERCP with stone removal and possible stent placement. -07/31/2021; Patient underwent ERCP on July by Dr. Rubi. Findings are as below - The entire main bile duct was dilated, with a stone causing an obstruction. - Choledocholithiasis was found. Complete removal was accomplished by biliary sphincterotomy and balloon extraction. - A biliary sphincterotomy was performed. - The biliary tree was swept. 2. Chronic A. fib ? Patient is on apixaban as well as metoprolol for rate control 3. GERD ? Patient is on PPI 4. Vitamin D deficiency ? Patient is on calcium and vitamin D plan is to continue 5. Osteoporosis ? Patient is on supplement with vitamin D and calcium 6. DVT prophylaxis ? On apixaban prior to admission Physical Exam Narrative GENERAL: cooperative HEENT: Atraumatic; EYES; icteric, NECK; supple, normal thyroid, RESPIRATORY: Diminished to auscultation CARDIOVASCULAR: Regular S1 S2, GI: soft, normoactive bowel sounds, : No Renal angle tenderness; EXTREMITIES: No edema, no clubbing, MUSCULOSKELETAL: no muscle waisting NEURO: Awake; no lateralizing signs. SKIN: No Rash PSYCH; Flat affect Weight / BMI Weight Weight: 65.9 kg Body Mass Index (BMI) 24.7 ABG / Lab / Microbiology Data Result Diagrams: 07/31/21 05:13 07/31/21 05:13 Laboratory: Laboratory Results - last 24 hr 07/31/21 05:13: WBC 3.9 L, RBC 3.96 L, Hgb 12.1, Hct 37.4, MCV 94.4, MCH 30.6, MCHC 32.4, RDW Std Deviation 48.7 H, RDW Coeff of Manuelito 14.0, Plt Count 159, MPV 10.1, Immature Gran % (Auto) 0.000, Neut % (Auto) 72.1 H, Lymph % (Auto) 17.7 L, [place] % (Auto) 8.2, Eos % (Auto) 1.5, Baso % (Auto) 0.5, Absolute Neuts (auto) 2.8, Absolute Lymphs (auto) 0.69 L, Nucleated RBC % 0 07/31/21 05:13: Sodium 139, Potassium 4.0, Chloride 104, Carbon Dioxide 30.0, Anion Gap 5, BUN 12, Creatinine 0.63, Estim Creat Clear Calc 38.10, Est GFR (MDRD) Af Amer 117, Est GFR (MDRD) Non-Af 97, BUN/Creatinine Ratio 19.2, Glucose 90, Calcium 8.2 L, Total Bilirubin 2.00 H, Direct Bilirubin 0.53 H, AST 113 H, ALT 381 H, Alkaline Phosphatase 473 H, Total Protein 5.4 L, Albumin 2.6 L, Globulin 2.8 Microbiology: Microbiology 07/30/21 17:15 Nasal Secretion SARS-CoV-2 Antigen (Rapid) - Final Radiography Diagnostic Testing: Radiology Impression ERCP X-Ray 07/30/21 19:00 D/C Instructions Discharge Diet: No restrictions Discharge Activity: Return to Normal Activity Call your doctor if you observe: Fever of 101 or Higher, Shortness of breath, Fainting spells and Chest pain Meaningful Use Info Meaningful Use Diagnoses (Choose all that apply): None applicable Discharge Plan Admission Admit Date/Time: 07/28/21 18:04 Attending Provider: Azam Norman Primary Care Provider: Lucian Izquierdo Discharge Orders/Prescriptions Prescriptions: Continued omega-3 fatty acids [Fish Oil Concentrate] 1,000 mg capsule 1,000 mg PO DAILY RF: 0 calcium carbonate-vitamin D3 1 EACH tablet 1 ea PO BID RF: 0 cholecalciferol (vitamin D3) 50,000 UNIT capsule 50,000 unit PO CEDILLO RF: 0 vit [id number] 1 EACH tablet 1 ea PO DAILY RF: 0 magnesium oxide 400 MG tablet 400 mg PO QHS RF: 0 omeprazole 20 MG capsule 20 mg PO DAILY Qty: 30 RF: 0 ipratropium bromide 1 SPRAY spray,non-aerosol 1 spray NASAL BID RF: 0 metoprolol tartrate 25 mg tablet 12.5 mg PO BID RF: 0 Eliquis 5 mg tablet 5 mg PO DAILY RF: 0 Bio Complete 3 2 cap PO/SL BID RF: 0 Manoxadyl 1 tsp PO/SL DAILY RF: 0 Discontinued acetaminophen 500 mg tablet 500 mg PO Q6H PRN (Reason: PAIN AND FEVER) RF: 0 Referrals / Follow Up: Lucian Izquierdo MD [Primary Care Provider] - In 1 Week Disposition Disposition (needs filled in before D/C Order can be placed): Home, Self Care Charges/Coding Visit Charges Inpatient E&M: 44150 Disch Hosp
== END 2021-07-31 11:10 | disposition home or self-care (01) | DRG 445 ==
LOC: ED 18:52 → MS2 19:25
PROVIDERS: Family Medicine; Internal Medicine Gastroenterology; Admitting Provider Internal Medicine; Emergency Provider Emergency Medicine; PCP Family Medicine; Visit Provider Internal Medicine
PROC: 0FC98ZZ Extirpation of Matter from Common Bile Duct, Via Natural or Artificial Opening Endoscopic (ICD-10-PCS; CPT 43260; principal; 2021-07-30 16:30)
DX: K80.70 Calculus of gallbladder and bile duct without cholecystitis without obstruction (principal); I48.21 Permanent atrial fibrillation; B17.9 Acute viral hepatitis, unspecified; J44.9 Chronic obstructive pulmonary disease, unspecified; K57.30 Diverticulosis of large intestine without perforation or abscess without bleeding; I45.10 Unspecified right bundle-branch block; E78.5 Hyperlipidemia, unspecified; E55.9 Vitamin D deficiency, unspecified; K21.9 Gastro-esophageal reflux disease without esophagitis; I10 Essential (primary) hypertension; K83.8 Other specified diseases of biliary tract; E80.4 Gilbert syndrome; K86.89 Other specified diseases of pancreas; M81.0 Age-related osteoporosis without current pathological fracture; N26.1 Atrophy of kidney (terminal); R07.9 Chest pain, unspecified; Z79.01 Long term (current) use of anticoagulants; Z79.899 Other long term (current) drug therapy
CPT/HCPCS: 36415; 71046; 74177; 74181; 74328; 76000; 80048; 80053; 80061; 80074; 80076; 80329; 83605; 83615; 83690; 83735; 84100; 84443; 85025; 85027; 85610; 85730; 87426; 93005; 97802; 99251; 99284; J7030; Q9967; A4216; G0463; G0480; J0330; J2405

== ENCOUNTER 2021-08-28 15:12 | Outpatient (CLI) | payer MEDICARE, SELFPAY ==
[2021-08-28 17:33] LABS: Absolute Lymphocyte Count 1.03 X10^3/uL (0.83-4.51); Absolute Neutrophil Count 2.1 X10^3/uL (2.0-7.7); Basophil# 0.02 X10^3/uL; Basophil% 0.6 % (0-1); Eosinophils% 2.8 % (0-5); Hematocrit 41.7 % (37-47); Hemoglobin 14.1 g/dL (12.0-15.0); Lymphocyte # 1.03 X10^3/ul (0.83-4.51); Lymphocyte % 28.9 % (19-41); Mean Corp Hgb Conc 33.8 g/dL (32-36); Mean Corpuscular Hgb 31.5 pg (27.0-32.0); Mean Corpuscular Volume 93.3 fL (81-99); Mean Platelet Vol. 10.6 fl (6.2-12.0); Monocyte# 0.33 X10^3/uL; Monocyte% 9.3 % (0-10); NRBC Flagged by Analyzer 0 % (0-5); Neutrophil # 2.07 X10^3/uL (2.7-7.7); Neutrophil % 58.1 % (47-70); Platelet Count 198 K/mm3 (150-450); RBC Distribution Width SD 47.9 fl (35.1-43.9); Red Blood Count 4.47 M/mm3 (4.2-5.4); White Blood Count 3.6 K/mm3 (4.4-11.0)
[2021-08-28 18:13] LABS: AST(SGOT) 17 U/L (15-37); Alanine Aminotransfer ALT/SGPT 25 U/L (13-56); Albumin, Serum 3.4 g/dL (3.2-5.0); Alkaline Phosphatase 103 U/L (45-117); Anion Gap 5 (5-15); BUN 17 mg/dL (7-18); BUN/Creat Ratio 22.1 RATIO (10-20); Calcium,Total 8.9 mg/dL (8.5-10.1); Chloride 106 mmol/L (98-107); Creatinine, Serum 0.77 mg/dL (0.55-1.02); EST Glomerular Filtration Rate 77 mL/min (>60); Est Glom Filt Rate - Afr Amer 93 mL/min (>60); Globulin 3.5 g/dL (2.2-4.2); Glucose 88 mg/dL (74-106); Potassium 4.1 mmol/L (3.5-5.1); Protein, Total 6.9 g/dL (6.4-8.2); Sodium Level 139 mmol/L (136-145)
== END 2021-08-28 23:59 | disposition home or self-care (01) ==
LOC: MFPLAB 15:15
PROVIDERS: PCP Family Medicine; Referring Provider Family Medicine; Visit Provider Family Medicine
DX: K80.51 Calculus of bile duct without cholangitis or cholecystitis with obstruction (principal)
CPT/HCPCS: 36415; 80053; 85025

== ENCOUNTER → 2021-11-06 | Outpatient (CLI) | payer MEDICARE, SELFPAY ==
--- NOTE | 2021-11-06 14:50 | RAD_ITS ---
EXAM: XR LEFT TIBIA AND FIBULA, 2 VIEWS CLINICAL INDICATION: LEG PAIN Technologist Notes LEG PAIN AND BRUISING S/P FALL x5 DAYS AGO TECHNIQUE: Frontal and lateral views of the left tibia and fibula. This report was created using [employer] report generation technology. COMPARISON: None. FINDINGS: BONES/JOINTS: Unremarkable. No acute fracture. No subluxation. Normal alignment. Preservation of the joint space. No sclerotic or destructive changes observed. SOFT TISSUES: Soft tissue swelling around the ankle. No radiopaque foreign body. RAD/Tibia & Fibula 2 Views IMPRESSION: Soft tissue swelling around the ankle. Electronically Signed: William Avendano MD at 21:33 EDT ,
== END | disposition home or self-care (01) ==
LOC: MTRAD 14:48
PROVIDERS: PCP Family Medicine; Referring Provider Family Medicine; Visit Provider Family Medicine
DX: M79.605 Pain in left leg (principal)
CPT/HCPCS: 73590

== ENCOUNTER → 2022-06-04 | Outpatient (CLI) | payer MEDICARE, SELFPAY ==
--- NOTE | 2022-06-04 11:22 | ECHOD_ITS ---
Reason For Study: MVP Procedure This was a 2D Doppler, Color Flow transthoracic echocardiogram. The exam was of adequate technical quality. Exam performed in department. Left Ventricle Normal LV size. D shaped septum in systole and diastole. Sigmoid septum. Left ventricular systolic function is normal. The estimated ejection fraction is 60 %. Unable to assess diastolic dysfunction. No regional wall motion abnormalities noted. Right Ventricle Normal RV size. Normal systolic function. Atria The left atrium is severely enlarged. The right atrium is moderately enlarged. No doppler evidence for ASD. Mitral Valve There is no mitral annular calcification. Mild diffuse mitral valve thickening. Mild mitral valve prolapse, posterior leaflet. Moderate (2+) mitral valve insufficiency. Tricuspid Valve Mild diffuse thickening of the tricuspid valve. Mild tricuspid valve insufficiency. Right ventricular systolic pressure estimated to be 40 mmHg. Aortic Valve Trisinus/trileaflet aortic valve. Mild diffuse aortic valve thickening. Trivial aortic valve insufficiency. Pulmonic Valve Normal pulmonic valve. Moderate (2+) pulmonic valve insufficiency. Great Vessels Mildly dilated aortic root. Pericardium/Pleural No pericardial effusion. MMode/2D Measurements & Calculations LVIDd: 3.9 cm IVSd: 1.1 cm Ao root diam: 4.2 cm LVIDs: 2.4 cm LVPWd: 1.1 cm LA dimension: 5.5 cm RVDd: 5.9 cm FS: 38.7 % LAV(MOD-bp): 118.9 ml LA A4 area: 33.8 cm2 RA A4 area: 22.6 cm2 LAV(MOD-bp) Indexed: 68.7 ml/m2 LAV(MOD-sp2): 105.3 ml LAV(MOD-sp4): 128.5 ml Doppler Measurements & Calculations MV E max cait: 71.1 cm/sec Ao V2 max: 95.2 cm/sec LV V1 max: 77.5 cm/sec Ao max P.6 mmHg LV V1 max P.4 mmHg LV V1 mean P.3 mmHg LV V1 mean: 54.2 cm/sec LV V1 VTI: 16.8 cm MR max cait: 423.2 cm/sec PA V2 max: 107.3 cm/sec MR max P.7 mmHg PI dec slope: 214.4 cm/sec2 MR mean cait: 354.6 cm/sec MR mean P.1 mmHg MR VTI: 152.7 cm TR max cait: 272.3 cm/sec TR max P.8 mmHg ECHO/Echo Complete Interpretation Summary Left ventricular systolic function is normal. The estimated ejection fraction is 60 %. D shaped septum in systole and diastole. Sigmoid septum. The left atrium is severely enlarged. The right atrium is moderately enlarged. Mild diffuse mitral valve thickening. Mild mitral valve prolapse, posterior leaflet Moderate (2+) mitral valve insufficiency. Mild tricuspid valve insufficiency. Mild diffuse aortic valve thickening. Trivial aortic valve insufficiency. Moderate (2+) pulmonic valve insufficiency. Mildly dilated aortic root. Right ventricular systolic pressure estimated to be 40 mmHg. Unable to assess diastolic dysfunction. Ordering Physician: Fili Pressley Referring Physician: Lucian Izquierdo MD Performed By: Paresh Crowley RCS
== END | disposition home or self-care (01) ==
LOC: CVS 11:20
PROVIDERS: PCP Family Medicine; Referring Provider Internal Medicine Cardiovascular Disease; Visit Provider Internal Medicine Cardiovascular Disease
DX: G47.33 Obstructive sleep apnea (adult) (pediatric) (principal); I48.20 Chronic atrial fibrillation, unspecified; I34.1 Nonrheumatic mitral (valve) prolapse; I34.0 Nonrheumatic mitral (valve) insufficiency; I45.10 Unspecified right bundle-branch block; E78.5 Hyperlipidemia, unspecified; Z99.89 Dependence on other enabling machines and devices
CPT/HCPCS: 93306

== ENCOUNTER → 2022-10-12 | Outpatient (CLI) | payer MEDICARE, SELFPAY ==
[2022-10-12 15:27] LABS: Absolute Lymphocyte Count 0.99 X10^3/uL (0.83-4.51); Absolute Neutrophil Count 3.2 X10^3/uL (2.0-7.7); Basophil# 0.03 X10^3/uL; Basophil% 0.6 % (0-1); Eosinophil# 0.11 X10^3/uL; Eosinophils% 2.3 % (0-5); Hemoglobin 14.3 g/dL (12.0-15.0); Lymphocyte # 0.99 X10^3/ul (0.83-4.51); Mean Corp Hgb Conc 31.8 g/dL (32-36); Mean Corpuscular Hgb 29.9 pg (27.0-32.0); Mean Corpuscular Volume 93.9 fL (81-99); Mean Platelet Vol. 9.8 fl (6.2-12.0); Monocyte# 0.36 X10^3/uL; Monocyte% 7.6 % (0-10); NRBC Flagged by Analyzer 0 % (0-5); Neutrophil # 3.22 X10^3/uL (2.7-7.7); Neutrophil % 68.5 % (47-70); Platelet Count 226 K/mm3 (150-450); RBC Distribution Width CV 13.9 % (11.6-14.6); RBC Distribution Width SD 47.7 fl (35.1-43.9); Red Blood Count 4.79 M/mm3 (4.2-5.4); White Blood Count 4.7 K/mm3 (4.4-11.0)
[2022-10-12 16:38] LABS: Vitamin B12 963 pg/mL (211-911); Vitamin D,25 Hydroxy 104.8 ng/mL
[2022-10-12 16:47] LABS: ALB/GLOB Ratio 0.9 RATIO (0.9-2.4); AST(SGOT) 17 U/L (15-37); Alanine Aminotransfer ALT/SGPT 21 U/L (13-56); Albumin, Serum 3.3 g/dL (3.2-5.0); Alkaline Phosphatase 71 U/L (45-117); Anion Gap 5 (5-15); BUN 19 mg/dL (7-18); BUN/Creat Ratio 22.4 RATIO (10-20); Chloride 105 mmol/L (98-107); Creatinine, Serum 0.85 mg/dL (0.55-1.02); EST Glomerular Filtration Rate 68 mL/min (>60); Est Glom Filt Rate - Afr Amer 83 mL/min (>60); Globulin 3.6 g/dL (2.2-4.2); Glucose 116 mg/dL (74-106); Potassium 3.9 mmol/L (3.5-5.1); Protein, Total 6.9 g/dL (6.4-8.2); Sodium Level 138 mmol/L (136-145); Thyroid Stim Hormone (TSH) 1.83 uIU/mL (0.358-3.74)
[2022-10-12 17:01] LABS: Microalbumin,Random Urine 14.2 mg/L (NO RANGE EST.); Microalbumin:Creatinine Ratio 10.9 mg/g CRE (<30 mg/g CRE)
== END | disposition home or self-care (01) ==
LOC: LAB 14:53
PROVIDERS: PCP Family Medicine; Visit Provider Family Medicine
DX: L60.8 Other nail disorders (principal); I10 Essential (primary) hypertension; M85.80 Other specified disorders of bone density and structure, unspecified site
CPT/HCPCS: 36415; 80053; 82043; 82306; 82570; 82607; 82746; 84443; 85025

== ENCOUNTER → 2023-02-09 | Outpatient (CLI) | payer MEDICARE, SELFPAY ==
[2023-02-09 13:05] LABS: AST(SGOT) 20 U/L (15-37); Alanine Aminotransfer ALT/SGPT 30 U/L (13-56); Albumin, Serum 3.4 g/dL (3.2-5.0); Alkaline Phosphatase 76 U/L (45-117); Anion Gap 4 (5-15); BUN 15 mg/dL (7-18); Calcium,Total 9.1 mg/dL (8.5-10.1); Chloride 104 mmol/L (98-107); Creatinine, Serum 0.79 mg/dL (0.55-1.02); EST Glomerular Filtration Rate 74 mL/min (>60); Est Glom Filt Rate - Afr Amer 89 mL/min (>60); Globulin 3.5 g/dL (2.2-4.2); Glucose 94 mg/dL (74-106); Magnesium 2.4 mg/dL (1.6-2.6); Potassium 4.1 mmol/L (3.5-5.1); Protein, Total 6.9 g/dL (6.4-8.2); Sodium Level 139 mmol/L (136-145)
[2023-02-11 12:09] LABS: Vitamin D 1,25-Dihydroxy 59.2 pg/mL (24.8-81.5)
== END | disposition home or self-care (01) ==
LOC: LAB 11:51
PROVIDERS: PCP Family Medicine; Referring Provider Family Medicine; Visit Provider Family Medicine
DX: M85.80 Other specified disorders of bone density and structure, unspecified site (principal)
CPT/HCPCS: 36415; 80053; 82652; 83735

== ENCOUNTER → 2023-02-17 | Outpatient (CLI) | payer MEDICARE, SELFPAY ==
[2023-02-17 15:16] LABS: Absolute Lymphocyte Count 0.88 X10^3/uL (0.83-4.51); Absolute Neutrophil Count 2.2 X10^3/uL (2.0-7.7); Basophil# 0.02 X10^3/uL; Basophil% 0.6 % (0-1); Eosinophil# 0.07 X10^3/uL; Hematocrit 42.4 % (37-47); Lymphocyte # 0.88 X10^3/ul (0.83-4.51); Mean Corpuscular Hgb 30.8 pg (27.0-32.0); Mean Corpuscular Volume 93.2 fL (81-99); Mean Platelet Vol. 10.1 fl (6.2-12.0); Monocyte# 0.36 X10^3/uL; Monocyte% 10.2 % (0-10); NRBC Flagged by Analyzer 0 % (0-5); Neutrophil # 2.18 X10^3/uL (2.7-7.7); Neutrophil % 61.9 % (47-70); Platelet Count 187 K/mm3 (150-450); RBC Distribution Width CV 14.3 % (11.6-14.6); RBC Distribution Width SD 49.1 fl (35.1-43.9); Red Blood Count 4.55 M/mm3 (4.2-5.4); White Blood Count 3.5 K/mm3 (4.4-11.0)
[2023-02-17 15:57] LABS: Vitamin B12 627 pg/mL (211-911)
[2023-02-17 18:53] LABS: Thyroid Stim Hormone (TSH) 2.67 uIU/mL (0.358-3.74)
[2023-02-18 14:58] LABS: ALB/GLOB Ratio 0.9 RATIO (0.9-2.4); AST(SGOT) 21 U/L (15-37); Alanine Aminotransfer ALT/SGPT 29 U/L (13-56); Albumin, Serum 3.3 g/dL (3.2-5.0); Alkaline Phosphatase 77 U/L (45-117); Anion Gap 6 (5-15); BUN 15 mg/dL (7-18); BUN/Creat Ratio 18.7 RATIO (10-20); Chloride 106 mmol/L (98-107); EST Glomerular Filtration Rate 73 mL/min (>60); Est Glom Filt Rate - Afr Amer 88 mL/min (>60); Globulin 3.6 g/dL (2.2-4.2); Glucose 50 mg/dL (74-106); Potassium 4.2 mmol/L (3.5-5.1); Protein, Total 6.9 g/dL (6.4-8.2); Sodium Level 139 mmol/L (136-145)
== END | disposition home or self-care (01) ==
LOC: MTLAB 12:01
PROVIDERS: PCP Family Medicine; Visit Provider Family Medicine
DX: R06.02 Shortness of breath (principal)
CPT/HCPCS: 36415; 80053; 82607; 82746; 84443; 85025

== ENCOUNTER 2023-03-01 08:12 | Outpatient (CLI) | payer MEDICARE, SELFPAY ==
--- NOTE | 2023-03-02 08:12 | PFT ---
INTRODUCTION: The patient is an 82-year-old female who presents for pulmonary function studies secondary to a diagnosis of emphysema. Respiratory therapy reported good patient effort. Bronchodilators were used during testing. INTERPRETATION: Forced expiration spirometry demonstrates the presence of a moderate large airways obstructive ventilatory defect. There was a significant response to aerosolized bronchodilators. Spirograms are of good quality and plateau gradually indicating slow emptying of the lungs. Body plethysmography was performed and revealed lung volumes to be within normal limits. Diffusing capacity by single breath CO was mildly reduced at 66% of predicted. IMPRESSION: Partially reversible moderate large airways obstructive ventilatory defect with mild reduction in diffusing capacity.
== END 2023-03-01 23:59 | disposition home or self-care (01) ==
PROVIDERS: PCP Family Medicine; Referring Provider Family Medicine; Visit Provider Family Medicine
DX: J43.1 Panlobular emphysema (principal)
CPT/HCPCS: 94060; 94726; 94729

== ENCOUNTER → 2023-03-08 | Outpatient (CLI) | payer MEDICARE, SELFPAY ==
[2023-03-08 12:43] VITALS: PULSE 110; PULSE 112; PULSE 117; PULSE 119; PULSE 122; PULSE 69; PULSE 71; PULSE 95; O2SAT 90; O2SAT 91; O2SAT 92; O2SAT 93; O2SAT 94; O2SAT 96; O2SAT 97; O2SAT 98
--- NOTE | 2023-03-09 12:47 | PCM.PSN.6M ---
PSN 6 Minute Walk Test 6 Minute Walk Test 6 Minute Walk Test: 6 Minute Walk Test PSN:6-Minute Walk Test Start: 03/08/23 12:43 Freq: Status: Active Protocol: RESP.6MINW Document 03/08/23 12:43 [email or web address] (Rec: 03/08/23 12:45 DANNY [id number]) 6 Minute Walk Test Date Performed 03/08/23 Time Performed 12:30 Height 5 ft 4 in Weight: 145 lb Weight in Pounds 145.[address]: Lucian Izquierdo Assistive device used: None Pre-test Oxygen Delivery Method Room Air Pulse Ox 96 Pulse Rate (60-100) 69 Dyspnea Sunil Scale (0-10) 0 Exertion Sunil Scale (6-20) 6 1st minute Oxygen Delivery Method Room Air Pulse Ox 97 Pulse Rate (60-100) 95 2nd minute Oxygen Delivery Method Room Air Pulse Ox 94 Pulse Rate (60-100) 112 H 3rd minute Oxygen Delivery Method Room Air Pulse Ox 93 Pulse Rate (60-100) 117 H 4th minute Oxygen Delivery Method Room Air Pulse Ox 92 Pulse Rate (60-100) 122 H 5th minute Oxygen Delivery Method Room Air Pulse Ox 91 Pulse Rate (60-100) 119 H 6th minute Oxygen Delivery Method Room Air Pulse Ox 90 Pulse Rate (60-100) 110 H Dyspnea Sunil Scale (0-10) 4 Exertion Sunil Scale (6-20) 13 Post-test Oxygen Delivery Method Room Air Pulse Ox 98 Pulse Rate (60-100) 71 Full Laps Walked 15 Partial Lap, Number of Tiles Walked 32 Total Distance Walked (ft) 917 Interpretation Interpretation: The patient ambulated 917 feet over the course of 6 minutes beginning on room air without assistive devices. Pretesting oxygen saturation was noted to be 96% on room air. With ambulation, the chay oxygen saturation was 90%. This represents a significant exertional oxygen desaturation. Recommendations Recommendations: There is no indication for the use of supplemental oxygen at this time. However, close interval follow-up was recommended, given the degree of oxygen desaturation noted during this study.
== END | disposition home or self-care (01) ==
LOC: PSN 12:16
PROVIDERS: PCP Family Medicine; Referring Provider Family Medicine; Visit Provider Family Medicine
DX: J43.1 Panlobular emphysema (principal); I38 Endocarditis, valve unspecified
CPT/HCPCS: 94618

== ENCOUNTER → 2023-03-10 | Outpatient (CLI) | payer MEDICARE, SELFPAY ==
[2023-03-10 11:44] LABS: BNP,B-Type NATRIURETIC PEPTIDE 168.5 pg/mL (0-100)
[2023-03-10 11:45] LABS: Anion Gap 1 (5-15); BUN 13 mg/dL (7-18); BUN/Creat Ratio 17.7 RATIO (10-20); Calcium,Total 9.1 mg/dL (8.5-10.1); Chloride 105 mmol/L (98-107); Creatinine, Serum 0.73 mg/dL (0.55-1.02); EST Glomerular Filtration Rate 81 mL/min (>60); Est Glom Filt Rate - Afr Amer 97 mL/min (>60); Glucose 102 mg/dL (74-106); Potassium 4.3 mmol/L (3.5-5.1); Sodium Level 139 mmol/L (136-145)
== END | disposition home or self-care (01) ==
LOC: LAB 10:57
PROVIDERS: PCP Family Medicine; Referring Provider Nurse Practitioner Family; Visit Provider Nurse Practitioner Family
DX: R06.09 Other forms of dyspnea (principal); I77.810 Thoracic aortic ectasia; I34.1 Nonrheumatic mitral (valve) prolapse
CPT/HCPCS: 36415; 80048; 83880

== ENCOUNTER → 2023-04-04 | Outpatient (CLI) | payer MEDICARE, SELFPAY ==
[2023-04-04 18:12] LABS: Anion Gap 4 (5-15); BUN 17 mg/dL (7-18); BUN/Creat Ratio 16.7 RATIO (10-20); Chloride 102 mmol/L (98-107); Creatinine, Serum 1.02 mg/dL (0.55-1.02); EST Glomerular Filtration Rate 55 mL/min (>60); Est Glom Filt Rate - Afr Amer 67 mL/min (>60); Glucose 138 mg/dL (74-106); Sodium Level 138 mmol/L (136-145)
== END | disposition home or self-care (01) ==
LOC: LAB 16:23
PROVIDERS: PCP Family Medicine; Referring Provider Nurse Practitioner Family; Visit Provider Nurse Practitioner Family
DX: R06.09 Other forms of dyspnea (principal); Z51.81 Encounter for therapeutic drug level monitoring; Z79.899 Other long term (current) drug therapy
CPT/HCPCS: 36415; 80048

== ENCOUNTER → 2023-04-20 | Outpatient (CLI) | payer MEDICARE, SELFPAY ==
--- NOTE | 2023-04-20 14:09 | ECHOD_ITS ---
Reason For Study: ENDOCARDITIS Procedure This was a 2D Doppler, Color Flow transthoracic echocardiogram. Exam performed in department. Left Ventricle Normal LV size. Left ventricular systolic function is normal. The estimated ejection fraction is 60 %. No regional wall motion abnormalities noted. Right Ventricle Severely dilated right ventricle. Moderate global right ventricular systolic dysfunction. Atria The left atrium is moderately enlarged. The right atrium is moderately enlarged. Mitral Valve Bileaflet diffuse mitral valve thickening. Mild mitral valve prolapse, bileaflet. Mild (1+) eccentric mitral valve insufficiency. Tricuspid Valve Normal tricuspid valve. Mild (1+) tricuspid valve insufficiency. Pulmonary artery systolic pressure is 38 mmHg. Aortic Valve Trisinus/trileaflet aortic valve. Pulmonic Valve Normal pulmonic valve. Moderate (2+) pulmonic valve insufficiency. Great Vessels Normal aortic root. Mild pulmonary artery dilation. Normal inferior vena cava. Pericardium/Pleural No pericardial effusion. MMode/2D Measurements & Calculations LVIDd: 4.8 cm IVSd: 0.93 cm LVOT diam: 2.0 cm LVIDs: 2.5 cm LVPWd: 1.2 cm LVOT area: 3.1 cm2 RVDd: 4.8 cm FS: 48.8 % LAV(MOD-bp): 91.2 ml LVAd ap4: 21.5 cm2 LVAd ap2: 26.1 cm2 LAV(MOD-bp) Indexed: 53.4 ml/m2 LVLd ap4: 6.8 cm LVLd ap2: 7.6 cm LAV(MOD-sp2): 101.8 ml EDV(MOD-sp4): 56.0 ml EDV(MOD-sp2): 72.5 ml LAV(MOD-sp4): 75.8 ml EDV(sp4-el): 57.1 ml EDV(sp2-el): 75.4 ml LVAs ap4: 11.5 cm2 LVAs ap2: 14.4 cm2 LVLs ap4: 6.3 cm LVLs ap2: 6.2 cm ESV(MOD-sp4): 18.5 ml ESV(MOD-sp2): 28.0 ml ESV(sp4-el): 17.9 ml ESV(sp2-el): 28.2 ml EF(MOD-sp4): 67.0 % EF(MOD-sp2): 61.4 % EF(sp4-el): 68.7 % SV(MOD-sp4): 37.6 ml SV(MOD-sp2): 44.5 ml SV(sp4-el): 39.3 ml LA dimension(2D): 5.2 cm LA A4 area: 25.7 cm2 RA A4 area: 23.2 cm2 TAPSE: 1.9 cm Time Measurements MV dec time: 0.19 sec Doppler Measurements & Calculations MV E max dhaval: 115.4 cm/sec Lat Peak E' Dhaval: 11.1 cm/sec Med Peak E' Dhaval: 7.1 cm/sec E/E' lat: 10.4 E/E' med: 16.3 Ao V2 max: 132.5 cm/sec LV V1 max: 81.0 cm/sec SV(LVOT): 51.5 ml Ao max P.1 mmHg LV V1 max P.6 mmHg Ao V2 mean: 99.8 cm/sec LV V1 mean P.4 mmHg Ao mean P.4 mmHg LV V1 mean: 55.5 cm/sec Ao V2 VTI: 25.3 cm LV V1 VTI: 16.7 cm AV (velocity ratio): 0.66 LISA(I,D): 2.0 cm2 LISA(V,D): 1.9 cm2 PA V2 max: 107.7 cm/sec PI end-d dhaval: 153.1 cm/sec TR max dhaval: 290.7 cm/sec PA max PG (full): 3.3 mmHg TR max P.8 mmHg ECHO/Echo Complete Interpretation Summary Normal LV size. Left ventricular systolic function is normal. The estimated ejection fraction is 60 %. Severely dilated right ventricle. Moderate global right ventricular systolic dysfunction. Moderate (2+) pulmonic valve insufficiency. Mild mitral valve prolapse, bileaflet Ordering Physician: Lucian Izquierdo Referring Physician: Lucian Izquierdo Performed By: Adriana Desouza RDCS
== END | disposition home or self-care (01) ==
PROVIDERS: PCP Family Medicine; Referring Provider Family Medicine; Visit Provider Family Medicine
DX: R06.02 Shortness of breath (principal); I38 Endocarditis, valve unspecified
CPT/HCPCS: 93306

== ENCOUNTER → 2023-06-28 | Outpatient (CLI) | payer MEDICARE, SELFPAY ==
[2023-06-28 15:56] LABS: Anion Gap 4 (5-15); BUN 13 mg/dL (7-18); BUN/Creat Ratio 17.4 RATIO (10-20); Calcium,Total 8.7 mg/dL (8.5-10.1); Chloride 101 mmol/L (98-107); Creatinine, Serum 0.75 mg/dL (0.55-1.02); EST Glomerular Filtration Rate 79 mL/min (>60); Est Glom Filt Rate - Afr Amer 95 mL/min (>60); Glucose 107 mg/dL (74-106); Magnesium 2.4 mg/dL (1.6-2.6); Potassium 3.5 mmol/L (3.5-5.1); Sodium Level 139 mmol/L (136-145)
== END | disposition home or self-care (01) ==
LOC: LAB 14:49
PROVIDERS: PCP Family Medicine; Referring Provider Family Medicine; Visit Provider Family Medicine
DX: I50.810 Right heart failure, unspecified (principal); Z79.899 Other long term (current) drug therapy
CPT/HCPCS: 36415; 80048; 83735

== ENCOUNTER → 2023-07-22 | Outpatient (CLI) | payer MEDICARE, SELFPAY ==
--- OUTSIDE RECORDS SUMMARY | 2023-07-22 12:49 | XMS RPT_ITS | CCD ---
Author Name Unknown Address [address] [place] [address] Organization [facility] Care Team Providers Care Tailer Out Name Role Phone Rodney Toscano MD Unavailable [phone] ISIAH, SUSAN E Unavailable Unavailable ISIAH, SUSAN E Unavailable Unavailable ISIAH, SUSAN Unavailable Unavailable ISIAH, SUSAN Unavailable Unavailable LAZO, BERNARDINO A Unavailable Unavailable ISIAH, SUSAN Unavailable Unavailable ISIAH, SUSAN Unavailable Unavailable LAZO, BERNARDINO A Unavailable Unavailable REFERRING, PHY WO ID Unavailable Unavailable ISIAH, SUSAN Unavailable Unavailable LAZO, BERNARDINO A Unavailable Unavailable REFERRING, PHY WO ID~[id number] Unavailable Unava ilable ISIAH, SUSAN Unavailable Unavailable LAZO, BERNARDINO A Unavailable Unavailable LASHAWN BLANCO. Unavailable Unavailable LAZO, BERNARDINO A Unavailable Unavailable LASHAWN BLANCO. Unavailable Unavailable LAZO, BERNARDINO A Unavailable Unavailable Allergies Allergy Classification Reported Allergen(s) Allergy Type Date of Onset Reaction(s) Facility (2 sources) acetaminophen / oxyCODONE; Translations: [OXYCODONE-ACETAMI NOPHEN] Drug Allergy 03-29-2005 [facility] Repository (2 sources) amoxicillin; Translations: [AMOXICILLIN] Drug Allergy 07-06-2005 [facility] Repository (2 sources) phenazopyridine; Translations: [PHENAZOPYRIDINE HCL] Drug Allergy 07-06-2005 [facility] Medications Completed/Discontinued Medications Medication Drug Class(es) Dates Sig (Normalized) Sig (Original) Drug Treatment Unknown - unknown (1 source) No information available. Problems Problem Classification Problem Date Documented Da te Episodic/Chronic Cardiac dysrhythmias (3 sources) Chronic atrial fibrillation; Translations: [Chronic atrial fibrillation] Onset: 01-26-2017 Chronic Unclassified (1 source) No current problems or disability 08-01-2017 Unclassified (2 sources) Unknown / UNK(Unknown) Onset: 01-26-2017 Results Test Name Value Interpretation Reference Range Facil ity Encounters Encounter Date Encounter Type Care Provider Facility Start: 06-02-2018 Ambulatory SUSAN JOYCE Facility :[facility] Start: 01-20-2018 End: 01-21-2018 Ambulatory LASHAWN BLANCO [facility] Start: 11-28-2017 End: 11-29-2017 Ambulatory LASHAWN BLANCO [facility] Start: 09-30-2017 End: 09-30-2017 Ambulatory SUSAN JOYCE [facility] Start: 01-26-2017 Ambulatory PHY WO ID REFERRING Fac ility:[facility] Plan of Treatment Date Care Activity Detail Author [facility] Work Phone: Payers Date Payer Category Payer Unknown [id number] Summary Purpose Family History No Family History Records FoundNo Family History Records FoundNo Family History Records FoundNo Family History Records Found Advance Directives No Advanced Directives Records FoundNo Advanced Directives Records FoundNo Advanced Directives Records FoundNo Advanced Directives Records Found Additional Source Comments INFORMATION SOURCE (unrecogn ized section and content) DATE CREATED AUTHOR AUTHOR'S ORGANIZ ATION 01/06/2018 [facility] DATE CREATED AUTHOR AUTHOR'S ORGANIZ ATION 01/11/2018 [facility] DATE CREATED AUTHOR AUTHOR'S ORGANIZ ATION 01/21/2018 [facility] ([place]) FOR RECORDS PERTAINING TO PATIENTS WHO ARE OR HAVE BEEN ENROLLED IN A CHEMICAL DEPENDENCY/SUBSTANCEABUSE PROGRAM, SOME INFORMATION MAY BE OMITTED. This clinical summary was aggregated from multiple sources. Caution should be exercised in using it in the provision of clinical care. This summary normalizes information from multiple sources, and as a consequence, information in this document may materially change the coding, format and clinical context of patient data. In addition, data may be omitted in some cases. CLINICAL DECISIONS SHOULD BE BASED ON THE PRIMARY CLINICAL RECORDS. [facility] [facility]. provides no warranty or guarantee of the accuracy or completeness of information in this document.
--- NOTE | 2023-07-25 11:14 | PFT ---
INTRODUCTION: The patient is an 82-year-old female who presents for pulmonary function studies secondary to a diagnosis of emphysema. Respiratory therapy reported good patient effort. Bronchodilators were used during testing. 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 There was no significant response to aerosolized bronchodilators. Body plethysmography was performed and revealed lung volumes to be within normal limits. Diffusing capacity by single breath CO was reduced at 65% of predicted. IMPRESSION: Irreversible moderately severe large airways obstructive ventilatory defect with preserved lung volumes and mild reduction in diffusion capacity.
== END | disposition home or self-care (01) ==
PROVIDERS: PCP Family Medicine; Referring Provider Internal Medicine Critical Care Medicine; Visit Provider Internal Medicine Critical Care Medicine
DX: R06.09 Other forms of dyspnea (principal)
CPT/HCPCS: 94060; 94726; 94729

== ENCOUNTER → 2023-07-29 | Outpatient (CLI) | payer MEDICARE, SELFPAY ==
--- OUTSIDE RECORDS SUMMARY | 2023-07-29 12:43 | XMS RPT_ITS | CCD ---
Author Name Unknown Address [address] [place] [address] Organization [facility] Care Team Providers Care Highway Engineering Teacher Name Role Phone Rodney Toscano MD Unavailable [phone] ISIAH, SUSAN E Unavailable Unavailable ISIAH, SUSAN E Unavailable Unavailable ISIAH, SUSAN Unavailable Unavailable ISAIH, SUSAN Unavailable Unavailable LAZO, BERNADRINO A Unavailable Unavailable ISIAH, SUSAN Unavailable Unavailable ISIAH, SUSAN Unavailable Unavailable LAZO, BERNARDINO A Unavailable Unavailable REFERRING, PHY WO ID Unavailable Unavailable ISIAH, SUSAN Unavailable Unavailable LAZO, BERNARDINO A Unavailable Unavailable REFERRING, PHY WO [id number] Unavailable Unava ilable ISIAH, SUSAN Unavailable Unavailable LAZO, BERNARDINO A Unavailable Unavailable LASHAWN BLANCO. Unavailable Unavailable LAZO, BERNARDINO A Unavailable Unavailable LASHAWN BLANCO. Unavailable Unavailable LAZO, BERNARDINO A Unavailable Unavailable Allergies Allergy Classification Reported Allergen(s) Allergy Type Date of Onset Reaction(s) Facility (2 sources) acetaminophen / oxyCODONE; Translations: [OXYCODONE-ACETAMI NOPHEN] Drug Allergy 03-29-2005 [facility] Repository (2 sources) amoxicillin; Translations: [AMOXICILLIN] Drug Allergy 07-06-2005 [facility] Repository (2 sources) phenazopyridine; Translations: [PHENAZOPYRIDINE HCL] Drug Allergy 07-06-2005 [facility] Medications Completed/Discontinued Medications Medication Drug [...] Facility Start: 06-02-2018 Ambulatory SUSAN JOYCE Facility :[facility] Start: 01-20-2018 End: 01-21-2018 Ambulatory LASHAWN BLANCO [facility] Start: 11-28-2017 End: 11-29-2017 Ambulatory LASHAWN BLANCO [facility] Start: 09-30-2017 End: 09-30-2017 Ambulatory SUSAN JOYCE [facility] Start: 01-26-2017 Ambulatory PHY WO ID REFERRING Fac ility:[facility] Plan of Treatment Date Care Activity Detail Author [facility] Work Phone: Payers Date Payer Category Payer Unknown [id number] Summary Purpose Family History No Family History Records FoundNo Family History Records FoundNo Family History Records FoundNo Family History Records Found Advance Directives No Advanced Directives Records FoundNo Advanced Directives Records FoundNo Advanced Directives Records FoundNo Advanced Directives Records Found Additional Source Comments INFORMATION SOURCE (unrecogn ized section and content) DATE CREATED AUTHOR AUTHOR'S ORGANIZ ATION 01/06/2018 [facility] DATE CREATED AUTHOR AUTHOR'S ORGANIZ ATION 01/11/2018 [facility] DATE CREATED AUTHOR AUTHOR'S ORGANIZ ATION 01/21/2018 [facility] ([place]) FOR RECORDS PERTAINING TO PATIENTS [...] BE BASED ON THE PRIMARY CLINICAL RECORDS. [facility]. provides no warranty or guarantee of the accuracy or completeness of information in this document.
[2023-07-29 14:03] VITALS: PULSE 58; PULSE 61; PULSE 63; PULSE 65; PULSE 67; PULSE 71; PULSE 74; PULSE 75; O2SAT 92; O2SAT 93; O2SAT 94; O2SAT 95; O2SAT 96; O2SAT 97; O2SAT 98
--- NOTE | 2023-07-30 07:39 | WT_ITS ---
PSN 6 Minute Walk Test 6 Minute Walk Test 6 Minute Walk Test: 6 Minute Walk Test PSN:6-Minute Walk Test Start: 07/29/23 14:03 Freq: Status: Active Protocol: RESP.6MINW Document 07/29/23 14:03 [facility] (Rec: 07/29/23 14:07 [facility] [id number]) 6 Minute Walk Test Date Performed 07/29/23 Time Performed 12:30 Height 5 ft 4 in Weight: 145 lb Weight in Pounds 145.[address]: Ventura Mcarthur Assistive device used: None Pre-test Oxygen Delivery Method Room Air Pulse Ox 95 Pulse Rate (60-100) 61 Dyspnea Sunil Scale (0-10) 0 1st minute Oxygen Delivery Method Room Air Pulse Ox 97 Pulse Rate (60-100) 63 Dyspnea Sunil Scale (0-10) 0 2nd minute Oxygen Delivery Method Room Air Pulse Ox 96 Pulse Rate (60-100) 65 Dyspnea Sunil Scale (0-10) 1 3rd minute Oxygen Delivery Method Room Air Pulse Ox 92 Pulse Rate (60-100) 67 Dyspnea Sunil Scale (0-10) 2 4th minute Oxygen Delivery Method Room Air Pulse Ox 94 Pulse Rate (60-100) 71 Dyspnea Sunil Scale (0-10) 3 Number of Rests Taken 1 Reported Symptoms Increased Work of Breathing 5th minute Oxygen Delivery Method Room Air Pulse Ox 93 Pulse Rate (60-100) 74 Dyspnea Sunil Scale (0-10) 3 Reported Symptoms Increased Work of Breathing 6th minute Oxygen Delivery Method Room Air Pulse Ox 92 Pulse Rate (60-100) 75 Dyspnea Sunil Scale (0-10) 3 Number of Rests Taken 0 Reported Symptoms Increased Work of Breathing Post-test Oxygen Delivery Method Room Air Pulse Ox 98 Pulse Rate (60-100) 58 L Dyspnea Sunil Scale (0-10) 0 Full Laps Walked 16 Partial Lap, Number of Tiles Walked 22 Total Distance Walked (ft) 966 Interpretation Interpretation: The patient ambulated 966 feet over the course of 6 minutes beginning on room air without assistive devices. Pretesting oxygen saturation was noted to be 95% on room air. With ambulation, the chay oxygen saturation was 92%. There was no significant exertional oxygen desaturation. Recommendations Recommendations: There is no indication for the use of supplemental oxygen at this time.
== END | disposition home or self-care (01) ==
PROVIDERS: PCP Family Medicine; Referring Provider Internal Medicine Critical Care Medicine; Visit Provider Internal Medicine Critical Care Medicine
DX: R06.09 Other forms of dyspnea (principal)
CPT/HCPCS: 94618

== ENCOUNTER → 2023-09-13 | Outpatient (CLI) | payer MEDICARE, SELFPAY ==
--- NOTE | 2023-09-13 12:27 | BD_ITS ---
STUDY: DUAL ENERGY X-RAY ABSORPTIOMETRY / DXA REASON FOR EXAM: Female, 82 years old. M85.80 TECHNIQUE: Bone Mineral Density (BMD) measurements of lumbar spine and left hip were obtained. COMPARISON: Comparison is made with prior study dated September 27, 2018. FINDINGS: Lumbar Spine (L1-L4): g/cm2 (0.772) / T-score (-3.0) / Z-score (0.0) Findings are suggestive of osteoporosis with a high fracture risk. Left Femur Total: g/cm2 (0.740) / T-score (-1.7) / Z-score (0.6) Left Femoral Neck: g/cm2 (0.611) / T-score (-2.1) / Z-score (0.3) The T-Scores on the most recent prior examination were: Lumbar Spine (L1-L4): There has been worsening of bone density since the previous examination. Left Femur Total: which represents a worsening of 6%. BD/Dexa Bone Density Study IMPRESSION: The patient is considered osteoporotic as outlined below according to World Dejon Organization (WHO) criteria with a high fracture risk. There has been worsening of bone density since the previous examination. Reference Information: The T-score is the number of standard deviations above or below the standard which is normal for young adults at their peak bone mineral density. The World Health Organization (WHO) interprets the T-scores as follows: Above -1 Normal bone density Between -1 and -2.5 Osteopenia Equal to / or below -2.5 Osteoporosis As a practical clinical guideline, osteopenia may be graded as follows: Mild -1 through -1.5 Moderate -1.6 through -2.0 Severe -2.1 through -2.4 The Z-score is the number of standard deviations above or below age-matched controls. A Z-score of less than -1.5 would be considered abnormal. References: 1. NIH Osteoporosis and Related Bone Diseases www osteo.org 2. International Society for Clinical Densitometry www iscd.org 3. National Osteoporosis Foundation www nof.org Electronically Signed: Wilver Ann MD at 9:06 EST ,
--- NOTE | 2023-09-13 12:35 | BI_ITS ---
MAMMOGRAPHY - BILATERAL SCREENING REASON FOR EXAM: Female, 82 years old. Routine annual screening examination. PERTINENT HISTORY: Non-contributory. TECHNIQUE: Digital bilateral breast nando (3D mammographic acquisition) in the CC and MLO projections. 2-D mediolateral oblique (MLO) and craniocaudad (CC) views of both breasts were obtained. CAD: Full Field Digital Mammography with Computer Added Detection was performed. COMPARISON: Comparison is made with prior study September 27, 2018. FINDINGS: Breast Composition: The breasts are heterogeneously dense, which may obscure small masses. There are no dominant masses or suspicious calcifications. No other significant abnormalities are identified. There has been no significant change since the prior study.
== END | disposition home or self-care (01) ==
LOC: OPBI 12:20
PROVIDERS: PCP Family Medicine; Referring Provider Family Medicine; Visit Provider Family Medicine
DX: Z12.31 Encounter for screening mammogram for malignant neoplasm of breast (principal); M81.0 Age-related osteoporosis without current pathological fracture; M85.80 Other specified disorders of bone density and structure, unspecified site
CPT/HCPCS: 77063; 77067; 77080

== ENCOUNTER 2023-11-14 07:17 | Inpatient (IN) | payer MEDICARE, SELFPAY ==
[2023-11-14] VITALS (15 sets, daily range): BP systolic 100–133; BP diastolic 54–76; PULSE 86–102; RESP 16–30; TEMP 36.6–37.1; O2SAT 92–96; BMI 21.2; BMI 23.1
--- NOTE | 2023-11-14 07:31 | EKG12_ITS ---
Test Reason : SOB Blood Pressure : / mmHG Vent. Rate : 097 BPM Atrial Rate : 000 BPM P-R Int : 000 ms QRS Dur : 130 ms QT Int : 362 ms P-R-T Axes : 000 111 -06 degrees QTc Int : 459 ms Atrial fibrillation Right bundle branch block , plus right ventricular hypertrophy Septal infarct , age undetermined Abnormal ECG Confirmed by BELKYS RIOS, WADE ([id number]), pictures editor OLIMPIA GREENBERG ([id number]) on 11/17/2023 11:32:15 AM Referred By: FRANCIA Confirmed By:WADE RIZVI MD
--- NOTE | 2023-11-14 07:31 | RAD_ITS ---
HISTORY: dyspnea. TECHNIQUE: XR Chest 1 View. COMPARISON: 07/28/2021. FINDINGS: CARDIOMEDIASTINAL BORDERS: Cardiac silhouette again moderately enlarged. Mediastinal contour unchanged with calcification of the aortic knob and central pulmonary artery enlargement. LUNGS: Consolidation in the right lung base. PLEURA: Trace right pleural effusion. OSSEOUS STRUCTURES: Degenerative change. Old left rib fractures. RAD/Chest 1 View (Portable) IMPRESSION: Trace right pleural effusion with consolidation in the right lung base, concerning for pneumonia. Electronically Signed: Kathleen Suarez MD at 8:24 EDT ,
--- NOTE | 2023-11-14 07:32 | EDS_ITS ---
HPI History of Present Illness Chief Complaint: Shortness of Breath Detail of Chief Complaint: Shortness of breath Informant: patient and friend Narrative Narrative: Patient presents with shortness of breath that started 6 days ago. Patient states that she was in [place] visiting family and she flew in [place] and then drove home. Patient has been coughing and low-grade fever at home. Bringing up yellow phlegm. Denies sick contacts otherwise. She denies chest pain. Patient with history of A-fib and on Eliquis. Denies weight gain. Normally does not wear home O2 and was noted by nursing staff to be 80% on room air. [facility] Medical History Atrial fibrillation, permanent COPD (chronic obstructive pulmonary disease) Diarrhea Dilatation of aorta Diverticulosis Diverticulosis of colon without diverticulitis GERD (gastroesophageal reflux disease) Gilbert disease HLD (hyperlipidemia) Left inguinal hernia Non-rheumatic mitral regurgitation Nonrheumatic mitral (valve) prolapse Positive colorectal cancer screening using Cologuard test PVD (peripheral vascular disease) RBBB (right bundle branch block) Home Medications calcium carbonate 600 mg-vitamin D3 10 mcg (400 unit) tablet 1 ea PO BID SUPPLEMENT 01/05/16 [History Last Taken 07/27/21] omega-3 fatty acids 1,000 mg capsule (Fish Oil Concentrate) 1,000 mg PO DAILY 02/20/19 [History Last Taken 07/27/21] magnesium oxide 400 mg PO QHS supplement 08/18/20 [History Last Taken 07/27/21] omeprazole 20 mg capsule,delayed release 20 mg PO DAILY #30 caps 08/18/20 [Rx Last Taken 07/28/21] vits no.130-ferrous fum 27 mg iron-folic acid 800 mcg tablet 1 ea PO DAILY supplement 08/18/20 [History Last Taken 07/27/21] apixaban 5 mg tablet (Eliquis) 5 mg PO DAILY BLOOD THINNER 07/28/21 [History Last Taken 07/28/21] metoprolol tartrate 25 mg tablet 12.5 mg PO BID 07/28/21 [History Last Taken 07/28/21] acetaminophen 500 mg tablet 1,000 mg PO Q6H PRN 05/12/22 [History Last Taken Unknown] lactobacillus combination no.9 4 billion cell capsule (Adult 50 Plus Probiotic) 4,000 mmu cells PO DAILY 05/12/22 [History Last Taken Unknown] melatonin 3 mg capsule 3 mg PO HS PRN 05/12/22 [History Last Taken Unknown] triamcinolone acetonide 0.5 % topical cream 1 applic topical DAILY 05/12/22 [History Last Taken Unknown] vitamin B complex 1 tab PO DAILY 05/12/22 [History Last Taken Unknown] furosemide 40 mg tablet (Lasix) 40 mg PO Q OTHER DAY 08/02/23 [History Last Taken Unknown] ipratropium bromide 42 mcg (0.06 %) nasal spray 1 spray NASAL BID PRN congestion 08/02/23 [History Last Taken Unknown] Allergy/AdvReac Type Severity Reaction Status Date / Time oxycodone AdvReac PASSING Verified 11/14/23 07:21 OUT phenazopyridine HCl AdvReac Upset Verified 11/14/23 07:21 [From Pyridium] Stomach Family History Mother Diabetes Brother Diabetes Daughter Myocardial infarction [place] disease Thyroid disorder Surgical History History of appendectomy History of ERCP History of repair of hiatal hernia History of surgery on arm Hx laparoscopic cholecystectomy (~09/09/20) Hx of umbilical hernia repair S/P inguinal hernia repair Social History Smoking Status: Never smoker second hand exposure: No alcohol intake: current alcohol intake frequency: holidays/special occasions only substance use type: does not use caffeine: Yes what type of physical activity do you participate in: walking and weight training frequency: 3-4 times per week seatbelt use: always ROS ROS ED Review of Systems ROS Unobtainable: other Constitutional Constitutional ED: Reports fever(s) and lethargy; Denies chills, sweats or weight loss Eyes Eyes: Denies blurry vision, change in vision or diplopia ENT ENT ED: Denies rhinorrhea or sore throat Cardiovascular Cardiovascular: Denies chest pain, orthopnea or racing heartbeat Respiratory/Chest Respiratory/Chest: Reports cough, dyspnea, dyspnea on exertion and sputum; Denies orthopnea Gastrointestinal Gastrointestinal: Denies abdominal pain, diarrhea, nausea or vomiting Genitourinary Genitourinary ED: Denies dysuria, hematuria or urinary frequency Musculoskeletal Musculoskeletal: Denies arthralgias, back pain, myalgias or neck pain Integumentary Denies abscess, Abrasions or rash Neurologic Neurologic: Denies headache(s) or weakness Psychiatric Psychiatric: Denies anxiety, depression or suicidal thoughts Endocrine Endocrinology: Denies polydipsia, polyphagia or polyuria Hematologic/Lymphatic Hematologic/Lymphatic: Denies easy bleeding, easy bruising or lymphadenopathy Allergic/Immunologic Allergic/Immunologic ED: Denies mouth swelling, tongue swelling or urticaria EXAM Physical Exam Const Vital Signs: 11/14/23 07:17 11/14/23 07:22 11/14/23 07:31 Temperature 98.4 F Temperature Source Oral Pulse Rate 100 Respiratory Rate 29 H Respiratory Effort Short of Breath Labored Respiratory Depth Normal Respiratory Pattern Tachypnea Blood Pressure 133/76 H Blood Pressure Mean 95 Pulse Ox 93 92 Oxygen Delivery Method Nasal Cannula Nasal Cannula Oxygen Flow Rate (L/min) 4 4 11/14/23 07:43 11/14/23 07:50 Temperature 98.6 F Temperature Source Oral Pulse Rate 96 99 Respiratory Rate 16 30 H Respiratory Effort Respiratory Depth Respiratory Pattern Blood Pressure 114/66 Blood Pressure Mean 82 Pulse Ox 92 Oxygen Delivery Method Nasal Cannula Oxygen Flow Rate (L/min) 4 Positive well nourished and well developed General Appearance ED: well developed and NAD HEENT Reports TM's clear and moist mucous membranes normocephalic and atraumatic; Negative for trauma or tenderness Tympanic Membrane ED: Yes TM's clear Eyes PERRL and EOMs intact bilaterally General Eye ED: Negative for pale conjunctiva or scleral icterus Neck no lymphadenopathy, supple and no JVD General: Negative for tenderness Chest Wall inspection of chest normal and palpation of chest normal Chest: Negative for tenderness Resp No normal respiratory effort and No clear to auscultation bilaterally Resp Narrative: Mild tachypnea. Patient is some pain expiratory wheezes and crackles in both lungs right greater than left. Effort and Inspection: Negative for respiratory distress or pain with movement Auscultation: rhonchi and wheezes; Negative for diminished lung sounds Cardio regular rate, regular rhythm, S1 normal heart sound, S2 normal heart sound and no murmurs Peripheral Pulses: pulses 2+ throughout GI normal to inspection, nondistended, normoactive bowel sounds, soft to palpation, non-tender, non-distended and no masses Back/Spine no CVA tenderness and no thoracic nor lumbar tenderness Extremity normal to inspection General Extremety ED: Negative for edema General Extremity: Negative for edema Neuro oriented x3, CN's II-XII intact bilaterally, no sensory deficits noted and gait normal Sensorium / Orientation: awake, alert, oriented to person, oriented to place and oriented to time Motor Exam: strength 5/5 throughout and strength abnormal Psych mental status grossly normal Skin no rashes or lesions noted and no wounds MDM MDM MDM Narrative Medical decision making narrative: Patient presents with cough and dyspnea as well as low-grade fever. The differential would be infectious etiology such as pneumonia or viral URI. Patient also hypoxic on arrival and tachypneic. PE would be less likely given that she is already anticoagulated on Eliquis. CHF would also be in the differential. She is not having chest pain. IV established. EKG obtained arrival showed atrial fibrillation with rate of 97 bpm with right bundle branch block. CBC with differential obtained showed a white count of 10.3 with hemoglobin 14.9 and platelet count of 237. Chemistries unremarkable. Troponin was normal at 27. Lactate pending. 1 view chest x-ray obtained interpreted by myself as right lower lobe infiltrate and left lower lobe infiltrate. Patient was started on Rocephin and Zithromax. Blood cultures were ordered and pending. Case will be discussed with hospitalist to evaluate patient for admission. Lab Data Attestation: I reviewed the patient's lab results. Labs: Laboratory Results - last 24 hr 11/14/23 07:25 WBC 10.3 RBC 4.98 Hgb 14.9 Hct 45.5 MCV 91.4 MCH 29.9 MCHC 32.7 RDW Std Deviation 48.6 H RDW Coeff of Manuelito 14.6 Plt Count 237 MPV 10.3 Immature Gran % (Auto) 0.600 Neut % (Auto) 83.2 H Lymph % (Auto) 7.0 L Kane % (Auto) 8.0 Eos % (Auto) 0.3 Baso % (Auto) 0.9 Absolute Neuts (auto) 8.6 H Absolute Lymphs (auto) 0.72 L Nucleated RBC % 0 Sodium 132 L Potassium 3.5 Chloride 93 L Carbon Dioxide 33.0 H Anion Gap 6 BUN 14 Creatinine 0.85 Estim Creat Clear Calc 42.54 Est GFR (MDRD) Af Amer 82 Est GFR (MDRD) Non-Af 68 BUN/Creatinine Ratio 16.5 Glucose 137 H Calcium 9.6 Troponin I High Sens 27 EKG Initial EKG: Attestation: I personally reviewed and interpreted this EKG as follows: Comments: Atrial fibrillation with rate of 97 bpm with right bundle branch block Discharge Plan Triage Chief Complaint: Shortness of Breath ED Provider: Joan Cunningham Dx/Rx/DC Orders Clinical Impression: Respiratory failure, Hypoxia, Pneumonia Prescriptions: No Action omega-3 fatty acids [Fish Oil Concentrate] 1,000 mg capsule 1,000 mg PO DAILY triamcinolone acetonide 0.5 % cream 1 applic topical DAILY acetaminophen 500 mg tablet 1,000 mg PO Q6H PRN vitamin B complex Tablet 1 tab PO DAILY Adult 50 Plus Probiotic 4 billion cell capsule 4,000 mmu cells PO DAILY Rx Instructions: administer with a meal melatonin 3 mg capsule 3 mg PO HS PRN furosemide [Lasix] 40 mg tablet 40 mg PO Q OTHER DAY calcium carbonate-vitamin D3 1 EACH tablet 1 ea PO BID Patient Comments: SUPPLEMENT vit [id number] 1 EACH tablet 1 ea PO DAILY magnesium oxide 400 MG tablet 400 mg PO QHS omeprazole 20 MG capsule 20 mg PO DAILY Qty: 30 0RF ipratropium bromide 42 mcg (0.06 %) spray,non-aerosol 1 spray NASAL BID PRN (Reason: congestion) metoprolol tartrate 25 mg tablet 12.5 mg PO BID Eliquis 5 mg tablet 5 mg PO DAILY Patient Comments: take 1 tablet by mouth twice a day Primary Care Provider: Lucian Izquierdo Referrals: Lucian Izquierdo MD [Primary Care Provider] - Disposition Disposition: Acute Care [facility]
[2023-11-14 07:38] LABS: Absolute Lymphocyte Count 0.72 X10^3/uL (0.83-4.51); Absolute Neutrophil Count 8.6 X10^3/uL (2.0-7.7); Basophil# 0.09 X10^3/uL; Basophil% 0.9 % (0-1); Eosinophil# 0.03 X10^3/uL; Eosinophils% 0.3 % (0-5); Hematocrit 45.5 % (37-47); Hemoglobin 14.9 g/dL (12.0-15.0); Lymphocyte # 0.72 X10^3/ul (0.83-4.51); Mean Corp Hgb Conc 32.7 g/dL (32-36); Mean Corpuscular Hgb 29.9 pg (27.0-32.0); Mean Corpuscular Volume 91.4 fL (81-99); Mean Platelet Vol. 10.3 fl (6.2-12.0); Monocyte# 0.82 X10^3/uL; NRBC Flagged by Analyzer 0 % (0-5); Neutrophil # 8.57 X10^3/uL (2.7-7.7); Neutrophil % 83.2 % (47-70); Platelet Count 237 K/mm3 (150-450); RBC Distribution Width CV 14.6 % (11.6-14.6); RBC Distribution Width SD 48.6 fl (35.1-43.9); Red Blood Count 4.98 M/mm3 (4.2-5.4); White Blood Count 10.3 K/mm3 (4.4-11.0)
[2023-11-14] MEDS: Ipratropium/Albuterol Sulfate 3 ML AMPUL.NEB INHALATION ×3 (07:41→19:43)
[2023-11-14] MEDS: 0.9% Normal Saline (1000mL) 1,000 ML 150 ML IV (07:45)
[2023-11-14 07:56] LABS: Anion Gap 6 (5-15); BUN 14 mg/dL (7-18); BUN/Creat Ratio 16.5 RATIO (10-20); Calcium,Total 9.6 mg/dL (8.5-10.1); Chloride 93 mmol/L (98-107); Creatinine, Serum 0.85 mg/dL (0.55-1.02); EST Glomerular Filtration Rate 68 mL/min (>60); Est Glom Filt Rate - Afr Amer 82 mL/min (>60); Estimated Creatinine Clearance 42.54 ml/min; Glucose 137 mg/dL (74-106); Potassium 3.5 mmol/L (3.5-5.1); Sodium Level 132 mmol/L (136-145); Troponin-I HS 27 pg/mL (3.0-54.0)
[2023-11-14 08:06] LABS: BNP,B-Type NATRIURETIC PEPTIDE 301.9 pg/mL (0-100)
--- NOTE | 2023-11-14 08:11 | PCM.HP.STD ---
HPI - General General Date of Admission: 11/14/23 Date of Service: 11/14/23 Chief Complaint: Feeling sick, shortness of breath progressive worsening since 11/09/2023 HPI Narrative DAT GIFFORD, is a 83 F with history of COPD came to ER with shortness of breath mainly on minimal exertion, fever with chills and diaphoresis, chest tightness and productive cough.Patient stated that she was feeling well until 11/09/2023 when she felt short of breath mainly on walking on exertion which got progressively worse. She has been coughing and brings up yellow phlegm. Her temperature at home was 101 Fahrenheit on last Tuesday, 100.1 Fahrenheit yesterday with sweating and diaphoresis. She also felt chest tightness mainly anteriorly but denies chest pressure or pain. She does not wear home oxygen but pulse ox in ED was 80% on room air. She required 4 L of oxygen and was tachypneic respiratory 29 appointment in ED. Chest x-ray was done and suggestive of pneumonia and IV antibiotic given further admitted. She recently visited [place] and flew back home but denies any sick contact there. Labs EKG and imaging reviewed and discussed assessment plan [facility] Medical History Atrial fibrillation, permanent COPD (chronic obstructive pulmonary disease) Diarrhea Dilatation of aorta Diverticulosis Diverticulosis of colon without diverticulitis GERD (gastroesophageal reflux disease) Gilbert disease HLD (hyperlipidemia) Left inguinal hernia Non-rheumatic mitral regurgitation Nonrheumatic mitral (valve) prolapse Positive colorectal cancer screening using Cologuard test PVD (peripheral vascular disease) RBBB (right bundle branch block) Home Medications calcium carbonate 600 mg-vitamin D3 10 mcg (400 unit) tablet 1 ea PO BID SUPPLEMENT 01/05/16 [History Last Taken 07/27/21] omega-3 fatty acids 1,000 mg capsule (Fish Oil Concentrate) 1,000 mg PO DAILY supplement 02/20/19 [History Last Taken 07/27/21] magnesium oxide 400 mg PO QHS supplement 08/18/20 [History Last Taken 07/27/21] omeprazole 20 mg capsule,delayed release 20 mg PO DAILY reflux #30 caps 08/18/20 [Rx Last Taken 07/28/21] vits no.130-ferrous fum 27 mg iron-folic acid 800 mcg tablet 1 ea PO DAILY supplement 08/18/20 [History Last Taken 07/27/21] apixaban 5 mg tablet (Eliquis) 5 mg PO BID BLOOD THINNER 07/28/21 [History Last Taken 07/28/21] metoprolol tartrate 25 mg tablet 12.5 mg PO BID heart rate 07/28/21 [History Last Taken 07/28/21] acetaminophen 500 mg tablet 1,000 mg PO Q6H PRN fever or pain 05/12/22 [History Last Taken Unknown] lactobacillus combination no.9 4 billion cell capsule (Adult 50 Plus Probiotic) 4,000 mmu cells PO DAILY gut health 05/12/22 [History Last Taken Unknown] melatonin 3 mg capsule 3 mg PO HS PRN sleep 05/12/22 [History Last Taken Unknown] triamcinolone acetonide 0.5 % topical cream 1 applic topical DAILY PRN psoriasis 05/12/22 [History Last Taken Unknown] vitamin B complex 1 tab PO DAILY supplement 05/12/22 [History Last Taken Unknown] furosemide 40 mg tablet (Lasix) 40 mg PO DAILY diuretic 08/02/23 [History Last Taken Unknown] ipratropium bromide 42 mcg (0.06 %) nasal spray 1 spray NASAL BID PRN congestion 08/02/23 [History Last Taken Unknown] ibandronate 150 mg tablet 150 mg PO QMONTH osteoporosis 11/14/23 [History Last Taken 10/17/23] Allergy/AdvReac Type Severity Reaction Status Date / Time oxycodone AdvReac PASSING Verified 11/14/23 07:21 OUT phenazopyridine HCl AdvReac Upset Verified 11/14/23 07:21 [From Pyridium] Stomach Family History Mother Diabetes Brother Diabetes Daughter Myocardial infarction [place] disease Thyroid disorder Surgical History History of appendectomy History of ERCP History of repair of hiatal hernia History of surgery on arm Hx laparoscopic cholecystectomy (~09/09/20) Hx of umbilical hernia repair S/P inguinal hernia repair Social History Smoking Status: Never smoker second hand exposure: No alcohol intake: current alcohol intake frequency: holidays/special occasions only substance use type: does not use caffeine: Yes what type of physical activity do you participate in: walking and weight training frequency: 3-4 times per week seatbelt use: always ROS ROS Narrative Constitutional: Reports fatigue and weakness. Fever, sweating and diaphoresis feeling sick. HEENT: Reports systems reviewed and no addt'l complaints, except as documented Respiratory/Chest: As described in HPI CVS: Denies history of CAD. Chronic A-fib on Eliquis. Gastrointestinal: Loss of appetite. Denies coffee ground emesis, hematemesis or vomiting Genitourinary: Denies burning urination or new urinary tract symptoms Musculoskeletal: Denies acute joint pain or limited range of motion. No acute injury Neurologic: Denies seizure-like symptoms. skin: No ulcer. No rash Endocrinology: Reports systems reviewed and no addt'l complaints, except as documented Hematologic/Lymphatic: Reports systems reviewed and no addt'l complaints, except as documented Rest 14 ROS are negative except as mentioned in HPI Vital Signs Vital Signs Vital Signs: 11/14/23 07:17 11/14/23 07:22 11/14/23 07:31 Temperature 98.4 F Temperature Source Oral Pulse Rate 100 Respiratory Rate 29 H Respiratory Effort Short of Breath Labored Respiratory Depth Normal Respiratory Pattern Tachypnea Blood Pressure 133/76 H Blood Pressure Mean 95 Pulse Ox 93 92 Oxygen Delivery Method Nasal Cannula Nasal Cannula Oxygen Flow Rate (L/min) 4 4 11/14/23 07:43 11/14/23 07:50 Temperature 98.6 F Temperature Source Oral Pulse Rate 96 99 Respiratory Rate 16 30 H Respiratory Effort Respiratory Depth Respiratory Pattern Blood Pressure 114/66 Blood Pressure Mean 82 Pulse Ox 92 Oxygen Delivery Method Nasal Cannula Oxygen Flow Rate (L/min) 4 Weight Weight: 123 lb 10.869 oz Body Mass Index (BMI) 21.2 Physical Exam Narrative General: Alert, Oriented x3, Cooperative. Looks fatigued and sick HEENT: Atraumatic, PERRLA, EOMI, Normocephalic Oral: Oral mucosa dry. No Gingival or Mucosal Lesions/ Ulcerations Neck: Supple, No JVD, Negative Carotid Bruits Chest wall/Lungs: Air entry diminished in bilateral lung bases. Bilateral coarse crepitations and rhonchi. Tachypnea and hypoxia Cardiovascular: Irregular rhythm, A-fib. Pansystolic murmur present over LLSB and cardiac apex. Abdomen: Bowel Sounds Present, Soft, Non Tender, Non-Distended : No dysuria. No renal angle tenderness. No suprapubic tenderness. Extremities: Mild nonpitting chronic edema/venous edema. Capillary Refill Less than 3 Seconds Skin: Enlarged tortuous dilated veins on lower legs, varicose vein. No active bleeding Musculoskeletal: No Tenderness to Palpation of Joints or Extremities Neurological: Cranial nerves II-XII grossly intact, DTR 2+/4. No acute focal neurological deficit. Psych/Mental Status: Flat affect. Results Lab / Micro Data 11/14/23 07:25 11/14/23 07:25 Labs: Laboratory Results - last 24 hr 11/14/23 07:25: WBC 10.3, RBC 4.98, Hgb 14.9, Hct 45.5, MCV 91.4, MCH 29.9, MCHC 32.7, RDW Std Deviation 48.6 H, RDW Coeff of Manuelito 14.6, Plt Count 237, MPV 10.3, Immature Gran % (Auto) 0.600, Neut % (Auto) 83.2 H, Lymph % (Auto) 7.0 L, [place] % (Auto) 8.0, Eos % (Auto) 0.3, Baso % (Auto) 0.9, Absolute Neuts (auto) 8.6 H, Absolute Lymphs (auto) 0.72 L, Nucleated RBC % 0, Sodium 132 L, Potassium 3.5, Chloride 93 L, Carbon Dioxide 33.0 H, Anion Gap 6, BUN 14, Creatinine 0.85, Estim Creat Clear Calc 42.54, Est GFR (MDRD) Af Amer 82, Est GFR (MDRD) Non-Af 68, BUN/Creatinine Ratio 16.5, Glucose 137 H, Calcium 9.6, Troponin I High Sens 27, B-Natriuretic Peptide 301.9 H Assessment & Plan Assessment/Plan (1) Hypoxia: (2) Pneumonia: PLAN: Plan This is a 83-year-old female being admitted for productive cough, progressive worsening of shortness of breath mainly [place], chest tightness and chest x-ray suggestive of pneumonia. 1. COPD exacerbation due to right lower lobe infiltrate: Patient is being admitted in PCU. Chest x-ray PA and lateral view individually reviewed and shows right lower lobe infiltrate. Started on IV ceftriaxone and azithromycin. Patient is being managed on scheduled bronchodilator, IV Solu-Medrol, Mucinex, incentive spirometry and Pep. Pneumonia workup ordered. Influenza RSV and SARS-CoV-2 PCR negative. Gram stain of the sputum culture shows 1+ gram-negative diplococci, 2+ GPC 4+ WBC. Patient is to follow Dr. Mcarthur. Last PFT on 11/14/2023 shows Irreversible moderately severe large airways obstructive ventilatory defect with preserved lung volumes and mild reduction in diffusion capacity. 2. Significant hypoxia due to COPD exacerbation and pneumonia: Patient has dyspnea on exertion on minimal to mild exertion. Patient on 4 L of oxygen. Keep pulse ox 90%. BiPAP as needed. 3. 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 Heart rate 95/min. Home medications continued. Last echo in April 2023 Interpretation Summary Normal LV size. Left ventricular systolic function is normal. The estimated ejection fraction is 60 %. Severely dilated right ventricle. Moderate global right ventricular systolic dysfunction. Moderate (2+) pulmonic valve insufficiency. Mild mitral valve prolapse, bileaflet 4. GERD: Patient on PPI continued. 5.. Vitamin D deficiency ? Patient is on calcium and vitamin D plan is to continue 6. Osteoporosis ? Patient is on supplement with vitamin D and calcium 7. DVT prophylaxis ? On apixaban on baseline, continue Living will/advanced directive/end of life care: Patient does have living will or advanced directive. After discussion of benefits/risks procedures involved with full code, DNR CC arrest and DNR CC, the patient opted for DNR CC arrest with no intubation. She said that she does not want to be in the mouth or ventilator or CPR/shocking. Patient doesn't want artificial life support including intubation, tube feed, ventilator and/chest compression, central venous catheter, vasopressor and DC shock if needed Microbiology Past 72 Hours 11/14/23 08:35 Sputum, Expectorated/Coughed Gram Stain - Final 11/14/23 07:20 Mucosa - Nose SARS-CoV-2, Influenza & RSV (PCR) - Final Laboratory Results 11/14/23 07:25: WBC 10.3, RBC 4.98, Hgb 14.9, Hct 45.5, MCV 91.4, MCH 29.9, MCHC 32.7, RDW Std Deviation 48.6 H, RDW Coeff of Manuelito 14.6, Plt Count 237, MPV 10.3, Immature Gran % (Auto) 0.600, Neut % (Auto) 83.2 H, Lymph % (Auto) 7.0 L, [place] % (Auto) 8.0, Eos % (Auto) 0.3, Baso % (Auto) 0.9, Absolute Neuts (auto) 8.6 H, Absolute Lymphs (auto) 0.72 L, Nucleated RBC % 0, Sodium 132 L, Potassium 3.5, Chloride 93 L, Carbon Dioxide 33.0 H, Anion Gap 6, BUN 14, Creatinine 0.85, Estim Creat Clear Calc 42.54, Est GFR (MDRD) Af Amer 82, Est GFR (MDRD) Non-Af 68, BUN/Creatinine Ratio 16.5, Glucose 137 H, Lactic Acid 1.5, Calcium 9.6, Magnesium 2.4, Troponin I High Sens 27, B-Natriuretic Peptide 301.9 H Charges/Coding Visit Charges Inpatient E&M: 22766 Init Hosp L3 Procedures Hospitalists Procedures: 92504 Advncd Care Plan 30 Min
[2023-11-14 08:14] LABS: Lactic Acid 1.5 mmol/L (0.4-1.9)
--- NOTE | 2023-11-14 08:18 | NURSING ---
PCU SHERYL PNEUMONIA, HYPOXEMIA, RESP FAILURE
[2023-11-14] MEDS: Ceftriaxone 1 GM/50 ML BAG IV (08:24)
[2023-11-14 08:48] LABS: Magnesium 2.4 mg/dL (1.6-2.6)
--- NOTE | 2023-11-14 08:55 | RAD_ITS ---
HISTORY: RLL infiltrate. TECHNIQUE: XR Chest 2 Views. COMPARISON: 07:54. FINDINGS: LINES/TUBES: None. CARDIOMEDIASTINAL BORDERS: Stable enlargement. LUNGS: Mild consolidation in the right lower lobe. PLEURA: Mild right pleural effusion. RAD/Chest PA and Lateral IMPRESSION: No significant interval change in right lower lobe consolidation with mild right pleural effusion. Electronically Signed: Kathleen Suarez MD at 9:10 EDT ,
[2023-11-14] MEDS: Azithromycin 500 MG in Dextrose 5%-Water (250mL Bag) 250 ML 250 MG IV (09:02)
[2023-11-14] MEDS: Enoxaparin 40 MG/0.4 ML Syringe SC (12:23)
[2023-11-14] MEDS: guaiFENesin 1,200 MG Tablet 1200 MG PO ×2 (12:23→20:44)
[2023-11-14] MEDS: Acetaminophen 325 MG Tablet 650 MG PO (12:24)
--- NOTE | 2023-11-14 15:42 | CHAPLAIN ---
Type of Pastoral Visit _x__ Initial Visit ___ Follow-up Visit ___ On-call Visit ___ General Patient Visit ___ Spiritual Assessment ___ Family Conference ___ Bereavement ___ Rapid Response ___ Code Blue ___ Other (describe below) Pastoral Care Referral From _x__ Patient ___ Family ___ Nurse ___ Physician ___ Monotype Operator ___ Laborer [employer] ___ Other (describe below) Sacrament/Intervention ___ Active listening ___ Anointing ___ Jehovah'S Witness ___ Bereavement ___ Communion ___ Lindsey exploration ___ _x__ Life review _x__ Prayer ___ Reconciliation ___ Sacrament of Sick _x__ Supportive presence ___ Wedding ___ Other (describe below) Pastoral Comments
[2023-11-14] MEDS: 0.9% Normal Saline (1000mL) 1,000 ML 75 ML IV (15:49)
[2023-11-14] MEDS: Metoprolol Tartrate 25 MG Tablet 12.5 MG PO ×2 (15:51→20:45)
[2023-11-14] MEDS: Magnesium Chloride 64 MG Delay Rel.Tablet 128 MG PO (20:44)
[2023-11-14] MEDS: 0.9% Saline Lock 10 ML Syringe IV (20:44)
[2023-11-14] MEDS: APIXABAN 5 MG TABLET PO (20:45)
[2023-11-14] MEDS: MELATONIN 3 MG TABLET PO (23:55)
[2023-11-15] VITALS (14 sets, daily range): BP systolic 93–108; BP diastolic 56–68; PULSE 70–92; RESP 18–22; TEMP 36.1–36.5; O2SAT 88–96
[2023-11-15] MEDS: Ipratropium/Albuterol Sulfate 3 ML AMPUL.NEB INHALATION ×4 (01:25→19:34)
[2023-11-15] MEDS: 0.9% Normal Saline (1000mL) 1,000 ML 75 ML IV (02:28)
[2023-11-15] MEDS: 0.9% Saline Lock 10 ML Syringe IV ×2 (05:16→14:13)
[2023-11-15 06:56] LABS: Absolute Lymphocyte Count 0.45 X10^3/uL (0.83-4.51); Absolute Neutrophil Count 6.3 X10^3/uL (2.0-7.7); Basophil# 0.03 X10^3/uL; Basophil% 0.4 % (0-1); Hematocrit 39.4 % (37-47); Hemoglobin 12.5 g/dL (12.0-15.0); Lymphocyte # 0.45 X10^3/ul (0.83-4.51); Lymphocyte % 6.4 % (19-41); Mean Corp Hgb Conc 31.7 g/dL (32-36); Mean Corpuscular Hgb 29.3 pg (27.0-32.0); Mean Corpuscular Volume 92.5 fL (81-99); Mean Platelet Vol. 10.2 fl (6.2-12.0); Monocyte# 0.13 X10^3/uL; Monocyte% 1.9 % (0-10); NRBC Flagged by Analyzer 0 % (0-5); Neutrophil # 6.31 X10^3/uL (2.7-7.7); Neutrophil % 90.4 % (47-70); POSITIVE DIFFERENTIAL YES; Platelet Count 183 K/mm3 (150-450); RBC Distribution Width CV 14.5 % (11.6-14.6); RBC Distribution Width SD 49.3 fl (35.1-43.9); Red Blood Count 4.26 M/mm3 (4.2-5.4)
[2023-11-15 07:18] LABS: Anion Gap 2 (5-15); BUN 12 mg/dL (7-18); BUN/Creat Ratio 23.8 RATIO (10-20); Calcium,Total 8.4 mg/dL (8.5-10.1); Chloride 101 mmol/L (98-107); EST Glomerular Filtration Rate 124 mL/min (>60); Est Glom Filt Rate - Afr Amer 149 mL/min (>60); Glucose 170 mg/dL (74-106); Potassium 3.8 mmol/L (3.5-5.1); Sodium Level 135 mmol/L (136-145)
--- NOTE | 2023-11-15 07:34 | PN.HOSP_ITS ---
Reason for Visit Reason for Visit: Diagnoses Pneumonia, unspecified organism (11/14/23) Hypoxemia (11/14/23) Objective Data Objective Data Vital Signs: Vital Signs Temp Pulse Resp BP Pulse Ox O2 Del Method O2 Flow Rate 96.9 F L 71 18 93/56 L 96 Nasal Cannula 4 11/15/23 03:15 11/15/23 03:15 11/15/23 03:15 11/15/23 03:15 11/15/23 03:15 11/15/23 03:15 11/15/23 03:15 Oxygen Flow Rate (L/min) 4 Oxygen Delivery Method Nasal Cannula Weight: 134 lb 11.239 oz Body Mass Index (BMI) 23.1 Intake & Output: Intake and Output for Last 24 Hours 11/13/23 11/14/23 11/15/23 23:59 23:59 23:59 Intake Total 2245 / 2245 918.75 / 918.75 Balance 2245 / 2245 918.75 / 918.75 Lab / Micro Data 11/15/23 06:40 11/15/23 06:40 Labs: Laboratory Results - last 24 hr 11/14/23 07:25: WBC 10.3, RBC 4.98, Hgb 14.9, Hct 45.5, MCV 91.4, MCH 29.9, MCHC 32.7, RDW Std Deviation 48.6 H, RDW Coeff of Manuelito 14.6, Plt Count 237, MPV 10.3, Immature Gran % (Auto) 0.600, Neut % (Auto) 83.2 H, Lymph % (Auto) 7.0 L, [place] % (Auto) 8.0, Eos % (Auto) 0.3, Baso % (Auto) 0.9, Absolute Neuts (auto) 8.6 H, Absolute Lymphs (auto) 0.72 L, Nucleated RBC % 0, Sodium 132 L, Potassium 3.5, Chloride 93 L, Carbon Dioxide 33.0 H, Anion Gap 6, BUN 14, Creatinine 0.85, Estim Creat Clear Calc 42.54, Est GFR (MDRD) Af Amer 82, Est GFR (MDRD) Non-Af 68, BUN/Creatinine Ratio 16.5, Glucose 137 H, Lactic Acid 1.5, Calcium 9.6, Magnesium 2.4, Troponin I High Sens 27, B-Natriuretic Peptide 301.9 H 11/15/23 06:40: WBC 7.0, RBC 4.26, Hgb 12.5, Hct 39.4, MCV 92.5, MCH 29.3, MCHC 31.7 L, RDW Std Deviation 49.3 H, RDW Coeff of Manuelito 14.5, Plt Count 183, MPV 10.2, Immature Gran % (Auto) 0.900, Neut % (Auto) 90.4 H, Lymph % (Auto) 6.4 L, [place] % (Auto) 1.9, Eos % (Auto) 0.0, Baso % (Auto) 0.4, Absolute Neuts (auto) 6.3, Absolute Lymphs (auto) 0.45 L, Nucleated RBC % 0, Sodium 135 L, Potassium 3.8, Chloride 101, Carbon Dioxide 32.0, Anion Gap 2 L, BUN 12, Creatinine 0.50 L , Estim Creat Clear Calc 45.20, Est GFR (MDRD) Af Amer 149, Est GFR (MDRD) Non- Af 124, BUN/Creatinine Ratio 23.8 H, Glucose 170 H, Calcium 8.4 L Micro: Microbiology 11/14/23 08:35 Sputum, Expectorated/Coughed Gram Stain - Final 11/14/23 07:20 Mucosa - Nose SARS-CoV-2, Influenza & RSV (PCR) - Final Radiography Diagnostic Testing: Radiology Impression Chest X-Ray 11/14/23 07:31 IMPRESSION: Trace right pleural effusion with consolidation in the right lung base, concerning for pneumonia. Electronically Signed: Kathleen Suarez MD at 8:24 EDT , Chest X-Ray 11/14/23 08:55 IMPRESSION: No significant interval change in right lower lobe consolidation with mild right pleural effusion. Electronically Signed: Kathleen Suarez MD at 9:10 EDT , Physical Exam Narrative Seen and examined. She feels improvement in shortness of breath, cough and sputum production. No fever Physical exam General: Alert, Oriented x3, Cooperative. Looks fatigued and sick HEENT: Atraumatic, PERRLA, EOMI, Normocephalic Oral: Oral mucosa dry. No Gingival or Mucosal Lesions/ Ulcerations Neck: Supple, No JVD, Negative Carotid Bruits Chest wall/Lungs: Air entry diminished in bilateral lung bases. Bilateral coarse crepitations and rhonchi. Cardiovascular: Irregular rhythm, A-fib. Pansystolic murmur present over LLSB and cardiac apex. On 2 L of oxygen. Abdomen: Bowel Sounds Present, Soft, Non Tender, Non-Distended : No dysuria. No renal angle tenderness. No suprapubic tenderness. Extremities: Mild nonpitting chronic edema/venous edema. Capillary Refill Less than 3 Seconds Skin: Enlarged tortuous dilated veins on lower legs, varicose vein. No active bleeding Musculoskeletal: No Tenderness to Palpation of Joints or Extremities Neurological: Cranial nerves II-XII grossly intact, DTR 2+/4. No acute focal neurological deficit. Psych/Mental Status: Flat affect. Assessment & Plan Assessment/Plan (1) Hypoxia: (2) Pneumonia: PLAN: Plan This is a 83-year-old female being admitted for productive cough, progressive worsening of shortness of breath mainly [place], chest tightness and chest x-ray suggestive of pneumonia. 1. COPD exacerbation due to right lower lobe infiltrate: Patient is being admitted in PCU. Chest x-ray PA and lateral view individually reviewed and shows right lower lobe infiltrate. Started on IV ceftriaxone and azithromycin. Patient is being managed on scheduled bronchodilator, IV Solu-Medrol, Mucinex, incentive spirometry and Pep. Pneumonia workup ordered. Influenza RSV and SARS-CoV-2 PCR negative. Gram stain of the sputum culture shows 1+ gram-negati ve diplococci, 2+ GPC 4+ WBC. Patient is to follow Dr. Mcarthur. Last PFT on 11/14/2023 shows Irreversible moderately severe large airways obstructive ventilatory defect with preserved lung volumes and mild reduction in diffusion capacity. 11/14: Prelim Gram stain shows gram-negative yelitza and possible haemophilus species. Continue IV antibiotic and other above COPD regimen. 2. Significant hypoxia due to COPD exacerbation and pneumonia: Patient has dyspnea on exertion on minimal to mild exertion. Patient on 4 L of oxygen. Keep pulse ox 90%. BiPAP as needed. 11/14: Oxygen requirement got better. On 2 L of oxygen. Not in respiratory distress. 3. 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 Heart rate 95/min. Home medications continued. Last echo in April 2023 Interpretation Summary Normal LV size. Left ventricular systolic function is normal. The estimated ejection fraction is 60 %. Severely dilated right ventricle. Moderate global right ventricular systolic dysfunction. Moderate (2+) pulmonic valve insufficiency. Mild mitral valve prolapse, bileaflet 4. GERD: Patient on PPI continued. 5.. Vitamin D deficiency ? Patient is on calcium and vitamin D plan is to continue 6. Osteoporosis ? Patient is on supplement with vitamin D and calcium 7. DVT prophylaxis ? On apixaban on baseline, continue Living will/advanced directive/end of life care: Patient does have living will or advanced directive. After discussion of benefits/risks procedures involved with full code, DNR CC arrest and DNR CC, the patient opted for DNR CC arrest with no intubation. She said that she does not want to be in the mouth or ventilator or CPR/shocking. Patient doesn't want artificial life support including intubation, tube feed, ventilator and/chest compression, central venous catheter, vasopressor and DC shock if needed Charges/Coding Visit Charges Inpatient E&M: 34173 [facility] Hosp L2
[2023-11-15] MEDS: Acetaminophen 500 MG Tablet 1000 MG PO (08:04)
[2023-11-15] MEDS: Ceftriaxone 2 GM in 0.9% Normal Saline (50mL MB+) 50 ML IV (08:53)
[2023-11-15] MEDS: Azithromycin 500 MG in Dextrose 5%-Water (250mL Bag) 250 ML 250 MG IV (08:53)
[2023-11-15] MEDS: Pantoprazole Sodium 20 MG Tablet PO (08:58)
[2023-11-15] MEDS: Metoprolol Tartrate 25 MG Tablet 12.5 MG PO ×2 (08:58→21:59)
[2023-11-15] MEDS: guaiFENesin 1,200 MG Tablet 1200 MG PO ×2 (08:59→21:59)
[2023-11-15] MEDS: APIXABAN 5 MG TABLET PO ×2 (08:59→21:59)
[2023-11-15] MEDS: Lactobacillis Acidophilus 1 CAP PO (08:59)
[2023-11-15] MEDS: Senna/Docusate Sodium 1 Tablet 2 TABLET PO ×2 (09:01→21:59)
--- NOTE | 2023-11-15 10:25 | CASEMGMT ---
DANNI ACEVEDO Face to Face with patient for initial transition planning/care coordination assessment. RN KRISTINA introduced self and role at [facility]. Patient sitting in chair, alert and oriented. Patient willing to participate in assessment and is able to answer all questions appropriately. Care providers, pharmacy, and demographics verified. PCP: [facility] Specialists: [employer], director of labor relations; Friend, GI; Blue, gas turbine powerplant mechanic helper; Preferred Pharmacy: [facility] Insurance: [facility] Prescription Benefit: yes Living Will/HPOA: yes, daughter Campos [place] L[place]: daughter, grandson Living Arrangements: Patient lives alone in a single story condo with 2 steps and grab bars. Patient states she is independent at home Transportation: self, brother, sister DME/HHC: Patient has raised toilet, cane, walker, wheelchair, grab bars at home. Will monitor for home oxygen. Patient goes to gym 2 day per week. No previous HHC or SNF. Patient wishes to discharge home, denies need for home health at this time. Patient states she has no further needs or concerns at this time. CM to follow for discharge planning needs that may arise. Disposition Plan: Patient to discharge home with family support and follow-up plans in place. Will monitor for home oxygen. Cheryle VALVERDE, RN, CM
[2023-11-15] MEDS: Magnesium Chloride 64 MG Delay Rel.Tablet 128 MG PO (22:01)
[2023-11-16] VITALS (12 sets, daily range): BP systolic 103–121; BP diastolic 59–72; PULSE 72–102; RESP 17–20; TEMP 36.4–36.6; O2SAT 85–96
[2023-11-16] MEDS: Ipratropium/Albuterol Sulfate 3 ML AMPUL.NEB INHALATION ×4 (00:13→18:12)
[2023-11-16] MEDS: MELATONIN 3 MG TABLET PO ×2 (01:29→22:44)
--- NOTE | 2023-11-16 07:31 | DCINST_ITS ---
Discharge Instructions Diet Discharge Diet: No restrictions Activity Discharge Activity: Return to Normal Activity Weight Bearing Status: Weight bearing as tolerated Dressing / Incision Call your doctor if you observe: Fever of 101 or Higher, Coldness, Increased Pain, Numbness or Tingling, Change in Color, Inability to urinate, Inability to have a bowel movement, Using more than 1 pad per hour, Shortness of breath, Dizziness, Fainting spells, Swelling in the ankles, Chest pain, Prolonged hiccupping, Increased palpitations (irregular heartbeat) and Calf discomfort Follow Up Care When: IN 2 WEEKS Test Results: Test results from this visit will be discussed in further detail at your follow- up appointment, if applicable. Discharge Plan Admission Admit Date/Time: 11/14/23 08:08 Attending Provider: Deon Hansen Primary Care Provider: Luican Izquierdo Instructions Additional Instructions / Restrictions: Continue incentive spirometry and PEP for 1 week. Follow-up pulmonary in 2-4 weeks. Discharge Orders/Prescriptions Prescriptions: New guaifenesin [Mucus Relief ER] 1,200 mg Tablet Extended Release 12hr 1,200 mg PO BID 7 Days Qty: 14 0RF levofloxacin 500 mg tablet 500 mg PO DAILY 5 Days Qty: 5 0RF Continued omega-3 fatty acids [Fish Oil Concentrate] 1,000 mg capsule 1,000 mg PO DAILY triamcinolone acetonide 0.5 % cream 1 applic topical DAILY PRN (Reason: psoriasis) acetaminophen 500 mg tablet 1,000 mg PO Q6H PRN (Reason: fever or pain) vitamin B complex Tablet 1 tab PO DAILY Adult 50 Plus Probiotic 4 billion cell capsule 4,000 mmu cells PO DAILY Rx Instructions: administer with a meal melatonin 3 mg capsule 3 mg PO HS PRN (Reason: sleep) furosemide [Lasix] 40 mg tablet 40 mg PO DAILY calcium carbonate-vitamin D3 1 EACH tablet 1 ea PO BID Patient Comments: SUPPLEMENT vit [id number] 1 EACH tablet 1 ea PO DAILY magnesium oxide 400 MG tablet 400 mg PO QHS omeprazole 20 MG capsule 20 mg PO DAILY Qty: 30 0RF ipratropium bromide 42 mcg (0.06 %) spray,non-aerosol 1 spray NASAL BID PRN (Reason: congestion) metoprolol tartrate 25 mg tablet 12.5 mg PO BID Eliquis 5 mg tablet 5 mg PO BID Patient Comments: take 1 tablet by mouth twice a day ibandronate 150 mg tablet 150 mg PO QMONTH Patient Comments: takes on 1st day of the month Referrals / Follow Up: Adis Perdomo DO [Med Staff - Active Staff] - Within 2 Weeks Lucian Izquierdo MD [Primary Care Provider] - Disposition Disposition (needs filled in before D/C Order can be placed): Home, Self Care
[2023-11-16] MEDS: Ceftriaxone 2 GM in 0.9% Normal Saline (50mL MB+) 50 ML IV (09:00)
[2023-11-16] MEDS: Benzonatate 100 MG Capsule 200 MG PO ×3 (09:06→21:30)
[2023-11-16] MEDS: Metoprolol Tartrate 25 MG Tablet 12.5 MG PO ×2 (09:07→21:24)
[2023-11-16] MEDS: Senna/Docusate Sodium 1 Tablet 2 TABLET PO (09:07)
[2023-11-16] MEDS: APIXABAN 5 MG TABLET PO ×2 (09:07→21:23)
[2023-11-16] MEDS: Lactobacillis Acidophilus 1 CAP PO (09:07)
[2023-11-16] MEDS: Pantoprazole Sodium 20 MG Tablet PO (09:08)
[2023-11-16] MEDS: Azithromycin 500 MG in Dextrose 5%-Water (250mL Bag) 250 ML 250 MG IV (09:59)
[2023-11-16] MEDS: guaiFENesin/D-Methorphan TAB.SR.12H 2 TABLET PO ×2 (10:04→21:23)
--- NOTE | 2023-11-16 10:46 | PCM.PN.HOSP ---
Reason for Visit Reason for Visit: Diagnoses Pneumonia, unspecified organism (11/14/23) Hypoxemia (11/14/23) Objective Data Objective Data Vital Signs: Vital Signs Temp Pulse Resp BP Pulse Ox O2 Del Method O2 Flow Rate 97.6 F L 102 H 18 121/59 H 85 Nasal Cannula 0 11/16/23 09:05 11/16/23 09:07 11/16/23 09:05 11/16/23 09:07 11/16/23 09:28 11/16/23 09:05 11/16/23 09:28 Oxygen Flow Rate (L/min) [ 4 AMBULATING with Oxygen #2] Oxygen Flow Rate (L/min) [ 2 AMBULATING with Oxygen #1] Oxygen Flow Rate (L/min) [At 2 REST with Oxygen] Oxygen Flow Rate (L/min) [At 0 REST on Room Air] Oxygen Flow Rate (L/min) 2 Oxygen Delivery Method Nasal Cannula Weight: 134 lb 11.239 oz Body Mass Index (BMI) 23.1 Intake & Output: Intake and Output for Last 24 Hours 11/14/23 11/15/23 11/16/23 23:59 23:59 23:59 Intake Total 2245 / 2245 3263.75 / 3263.75 170 / 170 Balance 2245 / 2245 3263.75 / 3263.75 170 / 170 Lab / Micro Data 11/15/23 06:40 11/15/23 06:40 Micro: Microbiology 11/14/23 08:35 Sputum, Expectorated/Coughed Gram Stain - Final 11/14/23 08:35 Sputum, Expectorated/Coughed Respiratory Culture - Preliminary Proteus mirabilis GNR Possible Haemophilus sp. 11/14/23 07:20 Mucosa - Nose SARS-CoV-2, Influenza & RSV (PCR) - Final Physical Exam Narrative Seen and examined. She feels improvement in shortness of breath, cough and sputum production. No fever. No shortness of breath at rest. Patient is more short of breath on exertion requires 2 L at rest and 4 L on exertion. Physical exam General: Alert, Oriented x3, Cooperative. Looks fatigued and sick HEENT: Atraumatic, PERRLA, EOMI, Normocephalic Oral: Oral mucosa dry. No Gingival or Mucosal Lesions/ Ulcerations Neck: Supple, No JVD, Negative Carotid Bruits Chest wall/Lungs: Air entry diminished in bilateral lung bases. Mild bilateral coarse crepitations and rhonchi. Cardiovascular: Irregular rhythm, A-fib. Pansystolic murmur present over LLSB and cardiac apex. On 2 L of oxygen. Abdomen: Bowel Sounds Present, Soft, Non Tender, Non-Distended : No dysuria. No renal angle tenderness. No suprapubic tenderness. Extremities: Mild nonpitting chronic edema/venous edema. Capillary Refill Less than 3 Seconds Skin: Enlarged tortuous dilated veins on lower legs, varicose vein. No active bleeding Musculoskeletal: No Tenderness to Palpation of Joints or Extremities Neurological: Cranial nerves II-XII grossly intact, DTR 2+/4. No acute focal neurological deficit. Psych/Mental Status: Flat affect. Assessment & Plan Assessment/Plan (1) Hypoxia: (2) Pneumonia: PLAN: Plan This is a 83-year-old female being admitted for productive cough, progressive worsening of shortness of breath mainly [place], chest tightness and chest x-ray suggestive of pneumonia. 1. COPD exacerbation due to right lower lobe infiltrate: Patient is being admitted in PCU. Chest x-ray PA and lateral view individually reviewed and shows right lower lobe infiltrate. Started on IV ceftriaxone and azithromycin. Patient is being managed on scheduled bronchodilator, IV Solu-Medrol, Mucinex, incentive spirometry and Pep. Pneumonia workup ordered. Influenza RSV and SARS-CoV-2 PCR negative. Gram stain of the sputum culture shows 1+ gram-negative diplococci, 2+ GPC 4+ WBC. Patient is to follow Dr. Mcarthur. Last PFT on 11/14/2023 shows Irreversible moderately severe large airways obstructive ventilatory defect with preserved lung volumes and mild reduction in diffusion capacity. 11/14: Prelim Gram stain shows gram-negative yelitza and possible haemophilus species. Continue IV antibiotic and other above COPD regimen. 11/15: Final sputum culture shows 1+ Proteus mirabilis and and 3+ Haemophilus influenzae. In the morning thought to discharge the patient but she got short of breath on walking requiring 4 L of oxygen therefore 1 more day. Expected discharge tomorrow AM. Prescription for levofloxacin and Mucinex DM already sent to patient's preferred pharmacy. 2. Significant hypoxia due to COPD exacerbation and pneumonia: Patient has dyspnea on exertion on minimal to mild exertion. Patient on 4 L of oxygen. Keep pulse ox 90%. BiPAP as needed. 11/14: Oxygen requirement got better. On 2 L of oxygen. Not in respiratory distress. 11/15 home qualification oxygen tomorrow AM. 3. 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 Heart rate 95/min. Home medications continued. Last echo in April 2023 Interpretation Summary Normal LV size. Left ventricular systolic function is normal. The estimated ejection fraction is 60 %. Severely dilated right ventricle. Moderate global right ventricular systolic dysfunction. Moderate (2+) pulmonic valve insufficiency. Mild mitral valve prolapse, bileaflet 4. GERD: Patient on PPI continued. 5.. Vitamin D deficiency ? Patient is on calcium and vitamin D plan is to continue 6. Osteoporosis ? Patient is on supplement with vitamin D and calcium 7. DVT prophylaxis ? On apixaban on baseline, continue Living will/advanced directive/end of life care: Patient does have living will or advanced directive. After discussion of benefits/risks procedures involved with full code, DNR CC arrest and DNR CC, the patient opted for DNR CC arrest with no intubation. She said that she does not want to be in the mouth or ventilator or CPR/shocking. Patient doesn't want artificial life support including intubation, tube feed, ventilator and/chest compression, central venous catheter, vasopressor and DC shock if needed Charges/Coding Visit Charges Inpatient E&M: 31322 [facility] Hosp L2
[2023-11-16 17:53] LABS: M R Staph aureus DNA By PCR Negative (Negative); Probe Check PASS; Specimen Processing Control PASS
[2023-11-16] MEDS: Magnesium Chloride 64 MG Delay Rel.Tablet 128 MG PO (21:23)
[2023-11-16] MEDS: Acetaminophen 500 MG Tablet 1000 MG PO (22:44)
[2023-11-17] VITALS (8 sets, daily range): BP systolic 117–127; BP diastolic 63–69; PULSE 70–90; RESP 18–19; TEMP 36.2–36.4; O2SAT 85–98
[2023-11-17] MEDS: Ipratropium/Albuterol Sulfate 3 ML AMPUL.NEB INHALATION ×3 (01:48→13:25)
[2023-11-17] MEDS: Benzonatate 100 MG Capsule 200 MG PO ×2 (05:58→13:21)
[2023-11-17] MEDS: Metoprolol Tartrate 25 MG Tablet 12.5 MG PO (09:31)
[2023-11-17] MEDS: APIXABAN 5 MG TABLET PO (09:31)
[2023-11-17] MEDS: Lactobacillis Acidophilus 1 CAP PO (09:32)
[2023-11-17] MEDS: guaiFENesin/D-Methorphan TAB.SR.12H 2 TABLET PO (09:32)
[2023-11-17] MEDS: Senna/Docusate Sodium 1 Tablet 2 TABLET PO (09:32)
[2023-11-17] MEDS: Pantoprazole Sodium 20 MG Tablet PO (09:32)
[2023-11-17] MEDS: Azithromycin 500 MG in Dextrose 5%-Water (250mL Bag) 250 ML 250 MG IV (09:36)
[2023-11-17] MEDS: Ceftriaxone 2 GM in 0.9% Normal Saline (50mL MB+) 50 ML IV (10:58)
[2023-11-17] MEDS: Furosemide 40 MG/4 ML Vial IV (13:21)
[2023-11-17] MEDS: 0.9% Saline Lock 10 ML Syringe IV (13:21)
--- NOTE | 2023-11-17 13:50 | DS.PCM_ITS ---
Providers Date of Admission: 11/14/23 Date of Discharge: 11/17/23 Primary Care Physician: Dr. Lucian Izquierdo MD Reason For Visit: PNEUMONIA, AFIB, HYPOXIA Diagnosis Discharge Diagnosis (1) Hypoxia: Status: Acute Code(s): R09.02 - Hypoxemia (2) Pneumonia: Status: Acute Code(s): J18.9 - Pneumonia, unspecified organism Medications at Discharge Home Medications calcium carbonate 600 mg-vitamin D3 10 mcg (400 unit) tablet 1 ea PO BID SUPPLEMENT 01/05/16 omega-3 fatty acids 1,000 mg capsule (Fish Oil Concentrate) 1,000 mg PO DAILY supplement 02/20/19 magnesium oxide 400 mg PO QHS supplement 08/18/20 omeprazole 20 mg capsule,delayed release 20 mg PO DAILY reflux #30 caps 08/18/20 vits no.130-ferrous fum 27 mg iron-folic acid 800 mcg tablet 1 ea PO DAILY supplement 08/18/20 apixaban 5 mg tablet (Eliquis) 5 mg PO BID BLOOD THINNER 07/28/21 metoprolol tartrate 25 mg tablet 12.5 mg PO BID heart rate 07/28/21 acetaminophen 500 mg tablet 1,000 mg PO Q6H PRN fever or pain 05/12/22 lactobacillus combination no.9 4 billion cell capsule (Adult 50 Plus Probiotic) 4,000 mmu cells PO DAILY gut health 05/12/22 melatonin 3 mg capsule 3 mg PO HS PRN sleep 05/12/22 triamcinolone acetonide 0.5 % topical cream 1 applic topical DAILY PRN psoriasis 05/12/22 vitamin B complex 1 tab PO DAILY supplement 05/12/22 furosemide 40 mg tablet (Lasix) 40 mg PO DAILY diuretic 08/02/23 ipratropium bromide 42 mcg (0.06 %) nasal spray 1 spray NASAL BID PRN congestion 08/02/23 ibandronate 150 mg tablet 150 mg PO QMONTH osteoporosis 11/14/23 guaifenesin 1,200 mg tablet, extended release 12 hr (Mucus Relief ER) 1,200 mg PO BID 1 week #14 tabs 11/16/23 levofloxacin 500 mg tablet 500 mg PO DAILY 5 days #5 tabs 11/16/23 Hospital Course Operations None Procedures EKG and - (Chest x-ray) Summary of Care Provided Minutes Spent on Discharge: 35 Hospital Course: Patient is an 83-year-old female who presented [facility] ED on 11/14/2023 with worsening shortness of breath, cough and fevers/chills. Hospital course as noted below. Patient discharged home with no therapy needs in stable condition on 11/16. 1. Acute exacerbation of COPD secondary to Haemophilus influenzae pneumonia with acute hypoxia; history of pulmonary hypertension Follows with outpatient pulmonology, last visit in July 2023. PFTs in July showed irreversible moderately severe large airway obstructive ventilatory defect with preserved lung volumes and mild reduction in diffusing capacity. However, she completed walking oximetry test and did not require any supplemental oxygen at that time. Requiring up to 4 L nasal cannula at rest on admission to maintain appropriate oxygen saturations. Chest x-ray showed trace right pleural effusion with consolidation in right lung base concerning for pneumonia. Sputum culture was positive for 3+ Haemophilus influenzae. BNP 301 on admit, mildly worsened from previous. Last echo in 04/2023 showed normal EF but RV systolic pressure 38 mmHg and moderate RV dysfunction. ? Treated with IV steroids, antibiotics and scheduled nebs during hospitalization with good improvement. Home Lasix initially held, given dose of IV Lasix on day of discharge and okay to resume home Lasix on discharge. H bettye, completed ambulatory O2 testing on day of discharge and patient required 2 L nasal cannula at rest and 4 L nasal cannula with exertion. Prescription for home oxygen sent. Completed 5-day course of steroids while inpatient, sent prescription for Levaquin to complete 7-day course of antibiotics total. Recommended close outpatient follow-up with pulmonology. Chronic medical conditions: ? Chronic A-fib on Eliquis: Rate controlled A-fib during hospitalization. Continue home Lopressor and Eliquis. ? GERD: Continue home PPI. ? Vitamin D deficiency, osteoporosis: Continue home supplements. Total clinical time spent by myself addressing the patient's medical issues, reviewing all the data, and collaborating with patient's care team: 35 minutes. Physical Exam Const alert, oriented x3, no apparent distress and average body habitus Constitutional Narrative: Pleasant elderly female, sitting up comfortably bedside chair, mildly fatigued appearing with some coughing during encounter but otherwise conversing normally and in no acute distress. General Appearance: cooperative and comfortable HEENT normocephalic, head/scalp atraumatic, hearing grossly normal bilaterally, nasal mucous membranes and turbinates normal and moist oral mucous membranes Eyes PERRL, EOMs intact bilaterally and conjunctivae normal Neck full ROM Chest inspection of chest normal Resp normal respiratory effort and no use of accessory muscles Resp Narrative: Breathing comfortably on 2 L nasal cannula at rest. Mildly decreased breath sounds in right lung base, otherwise good air movement throughout. No wheezing or rales noted. Cardio no murmurs and peripheral pulses 2+ throughout Cardio Narrative: A-fib, regular rhythm. GI normal to inspection, nondistended, normoactive bowel sounds, soft to palpation, non-tender and non-distended Back/Spine normal ROM Extremity normal to inspection, full ROM and no pedal edema Skin no rashes or lesions noted Neuro moves all extremities and no focal motor deficits Speech: speech normal Psych mental status grossly normal Weight / BMI Weight Weight: 61.1 kg Body Mass Index (BMI) 23.1 ABG / Lab / Microbiology Data 11/15/23 06:40 11/15/23 06:40 Laboratory: Laboratory Results - last 24 hr 11/16/23 14:55: MRSA (PCR) Negative Microbiology: Microbiology 11/14/23 16:26 Urine, Random Legionella Antigen - Final 11/14/23 16:26 Urine, Random Streptococcus pneumoniae Antigen (M - Final 11/14/23 08:35 Sputum, Expectorated/Coughed Gram Stain - Final 11/14/23 08:35 Sputum, Expectorated/Coughed Respiratory Culture - Final Proteus mirabilis Haemophilus influenzae 11/14/23 07:25 Blood Culture (Wb) - Anticubital Left Blood Culture - Preliminary No growth in 48 hours. 11/14/23 07:20 Mucosa - Nose SARS-CoV-2, Influenza & RSV (PCR) - Final Meaningful Use Info Meaningful Use Meaningful Use Diagnoses (Choose all that apply): None applicable Ischemic Stroke Statin Dosing Therapy Reference: STATIN DOSE THERAPY REFERENCE: * Patients > 75 years receive moderate or high dose statin therapy. * Patients 75 years or YOUNGER should receive HIGH intensity statin dose unless contraindicated. You will be required to document reason for non-treatment if statin daily dose does not meet guidelines. HIGH DOSE STATIN THERAPY DAILY Atorvastatin > than or = to 40 mg Rosuvastatin > than or = to 20 mg Amlodipine + Atorvastatin > than or = to 2.5/40 mg Ezetimibe + Simvastatin 10/80 mg Simvastatin 80mg Discharge Plan Admission Admit Date/Time: 11/14/23 08:08 Primary Reason for Your Visit: shortness of breath, cough Attending Provider: Gee Desai Primary Care Provider: Lucian Izquierdo Consulting Providers: Deon Hansen Instructions Additional Instructions / Restrictions: Continue incentive spirometry and PEP for 1 week. Follow-up pulmonary in 2-4 weeks. Discharge Orders/Prescriptions Prescriptions: New guaifenesin [Mucus Relief ER] 1,200 mg Tablet Extended Release 12hr 1,200 mg PO BID 7 Days Qty: 14 0RF levofloxacin 500 mg tablet 500 mg PO DAILY 5 Days Qty: 5 0RF Continued omega-3 fatty acids [Fish Oil Concentrate] 1,000 mg capsule 1,000 mg PO DAILY triamcinolone acetonide 0.5 % cream 1 applic topical DAILY PRN (Reason: psoriasis) acetaminophen 500 mg tablet 1,000 mg PO Q6H PRN (Reason: fever or pain) vitamin B complex Tablet 1 tab PO DAILY Adult 50 Plus Probiotic 4 billion cell capsule 4,000 mmu cells PO DAILY Rx Instructions: administer with a meal melatonin 3 mg capsule 3 mg PO HS PRN (Reason: sleep) furosemide [Lasix] 40 mg tablet 40 mg PO DAILY calcium carbonate-vitamin D3 1 EACH tablet 1 ea PO BID Patient Comments: SUPPLEMENT vit [id number] 1 EACH tablet 1 ea PO DAILY magnesium oxide 400 MG tablet 400 mg PO QHS omeprazole 20 MG capsule 20 mg PO DAILY Qty: 30 0RF ipratropium bromide 42 mcg (0.06 %) spray,non-aerosol 1 spray NASAL BID PRN (Reason: congestion) metoprolol tartrate 25 mg tablet 12.5 mg PO BID Eliquis 5 mg tablet 5 mg PO BID Patient Comments: take 1 tablet by mouth twice a day ibandronate 150 mg tablet 150 mg PO QMONTH Patient Comments: takes on 1st day of the month Referrals / Follow Up: Adis Perdomo DO [Med Staff - Active Staff] - Within 2 Weeks Lucian Izquierdo MD [Primary Care Provider] - Disposition Disposition (needs filled in before D/C Order can be placed): Home, Self Care Charges/Coding Visit Charges Inpatient E&M: 06208 Disch Hosp >30min
--- NOTE | 2023-11-17 15:11 | PCM.HOSP.N ---
Hospitalist Note I have reviewed the oxygen testing, and this patient qualifies for the home equipment and portability. The patient is mobile in the home and the community.
--- NOTE | 2023-11-17 15:17 | CASEMGMT ---
Patient has order for discharge. Patient will need home oxygen at discharge. DANNI ACEVEDO in to discuss needs at discharge with patient. Patient states she can afford pulse ox and will pick one up at pharmacy. Patient states she has no preferences for DME, list reviewed and would like [employer]. Patient ambulating well and denies HHC at discharge. Patient denied further needs or help at discharge. Patient had no further questions or concerns. DANNI ACEVEDO received script and referral sent to [facility] via [employer]. DANNI ACEVEDO updated discharge plan.
== END 2023-11-17 16:00 | disposition home or self-care (01) | DRG 190 ==
LOC: ED 08:05 → PCU 08:22
PROVIDERS: Admitting Provider Internal Medicine; Emergency Provider Emergency Medicine; PCP Family Medicine; Visit Provider Hospitalist
DX: J44.1 Chronic obstructive pulmonary disease with (acute) exacerbation (principal); J14 Pneumonia due to Hemophilus influenzae; I48.20 Chronic atrial fibrillation, unspecified; J44.0 Chronic obstructive pulmonary disease with (acute) lower respiratory infection; E78.5 Hyperlipidemia, unspecified; K21.9 Gastro-esophageal reflux disease without esophagitis; E55.9 Vitamin D deficiency, unspecified; Z66 Do not resuscitate; Z79.01 Long term (current) use of anticoagulants; Z79.899 Other long term (current) drug therapy
CPT/HCPCS: 36415; 71045; 71046; 80048; 83605; 83735; 83880; 84484; 85025; 87040; 87070; 87077; 87186; 87205; 87449; 87631; 87641; 93005; 94640; 94668; 94762; 97110; 97116; 97162; 97166; 99252; 99285; J7030; A4216; G0463; J0696; J1940

== ENCOUNTER 2024-01-26 11:46 | Emergency (ER) | payer MEDICARE, SELFPAY ==
[2024-01-26 11:48] VITALS: BP 135/83; PULSE 85; RESP 18; TEMP 36.4; O2SAT 95
--- NOTE | 2024-01-26 13:23 | EX.ED.DYSGE1 ---
HPI <KELIN Miller - Last Filed: 01/26/24 17:51> History of Present Illness Chief Complaint: Nosebleed Narrative Narrative: 83-year-old female with history of A-fib on Eliquis presents with a nosebleed. She states her nose bled for a couple hours 2 days ago and then resolved. It started again last night and continuously bled overnight. She states it was bleeding quite heavily but then she was able to pack it with Kleenex. She called her primary care office today and the nurse there called ENT but they could not get her in and recommended she come to the ED. Last dose of Eliquis was last night. She states she thinks she had a nosebleed because she was wearing 2 L of nasal cannula oxygen since July after pneumonia diagnosis but she was told by pulmonology yesterday she no longer needs it. She denies any symptoms from blood loss such as dizziness, lightheadedness, chest pain or shortness of breath. [facility] <KELIN Miller - Last Filed: 01/26/24 17:51> [facility] Medical History (Updated 01/26/24 @ 13:55 by KELIN Miller) Hypoxia Pneumonia Respiratory failure Diarrhea Gilbert disease Diverticulosis Nonrheumatic mitral (valve) prolapse PVD (peripheral vascular disease) Non-rheumatic mitral regurgitation RBBB (right bundle branch block) Dilatation of aorta Atrial fibrillation, permanent Left inguinal hernia Positive colorectal cancer screening using Cologuard test HLD (hyperlipidemia) GERD (gastroesophageal reflux disease) Diverticulosis of colon without diverticulitis COPD (chronic obstructive pulmonary disease) Home Medications ?Medication ?Instructions ?Recorded ?Last Taken ?Type calcium carbonate 600 mg-vitamin 1 ea PO BID SUPPLEMENT 01/05/16 07/27/21 History D3 10 mcg (400 unit) tablet omega-3 fatty acids 1,000 mg 1,000 mg PO DAILY supplement 02/20/19 07/27/21 History capsule (Fish Oil Concentrate) magnesium oxide 400 mg PO QHS supplement 08/18/20 07/27/21 History omeprazole 20 mg capsule,delayed 20 mg PO DAILY reflux #30 caps 08/18/20 07/28/21 Rx release vits [id number] fum 1 ea PO DAILY supplement 08/18/20 07/27/21 History 27 mg iron-folic acid 800 mcg tablet apixaban 5 mg tablet (Eliquis) 5 mg PO BID BLOOD THINNER 07/28/21 07/28/21 History metoprolol tartrate 25 mg tablet 12.5 mg PO BID heart rate 07/28/21 07/28/21 History acetaminophen 500 mg tablet 1,000 mg PO Q6H PRN fever or pain 05/12/22 Unknown History lactobacillus combination no.9 4 4,000 mmu cells PO DAILY gut health 05/12/22 Unknown History billion cell capsule (Adult 50 Plus Probiotic) melatonin 3 mg capsule 3 mg PO HS PRN sleep 05/12/22 Unknown History triamcinolone acetonide 0.5 % 1 applic topical DAILY PRN 05/12/22 Unknown History topical cream psoriasis vitamin B complex 1 tab PO DAILY supplement 05/12/22 Unknown History ipratropium bromide 42 mcg (0.06 1 spray NASAL BID PRN congestion 08/02/23 Unknown History %) nasal spray ibandronate 150 mg tablet 150 mg PO QMONTH osteoporosis 11/14/23 10/17/23 History biotin 1 mg tablet 1 mg PO DAILY 01/25/24 Unknown History psyllium husk 0.4 gram capsule 0.4 g PO DAILY 01/25/24 Unknown History (Daily Fiber) Allergy/AdvReac Type Severity Reaction Status Date / Time oxycodone AdvReac PASSING Verified 01/26/24 11:48 OUT phenazopyridine HCl (From AdvReac Upset Verified 01/26/24 11:48 Pyridium) Stomach Family History Mother Diabetes Brother Diabetes Daughter Myocardial infarction [place] disease Thyroid disorder Surgical History History of appendectomy History of ERCP Hx laparoscopic cholecystectomy (~09/09/20) S/P inguinal hernia repair History of surgery on arm Hx of umbilical hernia repair History of repair of hiatal hernia Social History Smoking Status: Never smoker second hand exposure: No alcohol intake: current alcohol intake frequency: holidays/special occasions only substance use type: does not use caffeine: Yes what type of physical activity do you participate in: walking and weight training frequency: 3-4 times per week seatbelt use: always ROS <KELIN Miller - Last Filed: 01/26/24 17:51> ROS ED ROS Narrative Constitutional: Negative for fever, chills, malaise. CVS: Negative for palpitations, chest pain, syncope. Respiratory: Negative for shortness of breath. EXAM <KELIN Miller - Last Filed: 01/26/24 17:51> Physical Exam Narrative Exam Narrative: CONST: Patient sitting in no acute distress. EYES: Normal inspection. ENT: Small amount of thin red blood in right nare without visualized blood vessel, left nare clear, normal posterior oropharynx. NECK: Normal inspection. RESP: No respiratory distress, CTAB. CVS: Regular rate and rhythm, no murmur, no gallop. SKIN: Color normal, no rash, warm, dry, intact. EXTREMITIES: Normal appearance, no pedal edema. NEURO: Alert and answering questions appropriately. PSYCH: Normal affect. Const Vital Signs: 01/26/24 11:48 01/26/24 13:47 01/26/24 15:17 Temperature 97.6 F L Temperature Source Temporal Pulse Rate 85 77 67 Respiratory Rate 18 15 14 Blood Pressure 135/83 H 112/67 109/65 Blood Pressure Mean 100 82 79 Pulse Ox 95 96 97 Oxygen Delivery Method Room Air Room Air 01/26/24 16:27 Temperature 97.5 F L Temperature Source Pulse Rate 69 Respiratory Rate 17 Blood Pressure 128/73 H Blood Pressure Mean 91 Pulse Ox 99 Oxygen Delivery Method <Dr. Shyam Larson DO - Last Filed: 01/26/24 19:53> Physical Exam Const Vital Signs: 01/26/24 11:48 01/26/24 13:47 01/26/24 15:17 Temperature 97.6 F L Temperature Source Temporal Pulse Rate 85 77 67 Respiratory Rate 18 15 14 Blood Pressure 135/83 H 112/67 109/65 Blood Pressure Mean 100 82 79 Pulse Ox 95 96 97 Oxygen Delivery Method Room Air Room Air 01/26/24 16:27 Temperature 97.5 F L Temperature Source Pulse Rate 69 Respiratory Rate 17 Blood Pressure 128/73 H Blood Pressure Mean 91 Pulse Ox 99 Oxygen Delivery Method MDM <KELIN Miller - Last Filed: 01/26/24 17:51> MDM MDM Narrative Medical decision making narrative: Patient had evidence of blood in her right nostril. I soaked a cottonball and Afrin and 1% lidocaine with epinephrine and packed the right side for approximately 30 minutes. After removal there was a small red dot/vessel visualized on the septum but no active bleeding. She was monitored for 30+ minutes with no rebleed and I do not feel nasal packing is needed at this time. I discussed return precautions and she was discharged in stable condition. <Dr. Shyam Larson, DO - Last Filed: 01/26/24 19:53> [facility] Narrative Medical decision making narrative: Patient had evidence of blood in her right nostril. I soaked a cottonball and Afrin and 1% lidocaine with epinephrine and packed the right side for approximately 30 minutes. After removal there was a small red dot/vessel visualized on the septum but no active bleeding. She was monitored for 30+ minutes with no rebleed and I do not feel nasal packing is needed at this time. I discussed return precautions and she was discharged in stable condition. Addendum Patient was seen and examined with physician assistant media buyer Samira All components of the history and physical confirmed and agreed. History of present illness and physical exam: Patient is a 83-year-old female with a past medical history of atrial fibrillation on Eliquis who presented to the emergency department chief complaint of nosebleed. She states that she has not had a nosebleed for the past few days now which eventually resolved however it started again last night and continuously blood throughout the night prompting her to come here for further evaluation and management. Patient states that she called her primary care office today and they attempted to call ears nose and throat however they could not get her in today and recommended her coming to the emergency department. Patient did note that her last dose of Eliquis was last night. Patient states that she has been wearing oxygen 2 L nasal cannula since July after being diagnosed with pneumonia however she was told by her gallery host that she no longer needs this and she discontinued this. General: Patient was lying in bed rest comfortably did not appear to be in acute distress Head atraumatic, normocephalic EENT: Pupils equal round react light bilaterally, extraocular muscle intact bladder no conjunctival injection noted, patient at the time my evaluation had her epistaxis resolved no active bleeding noted. Did appear to have a small spot in the right anterior nare that appeared to be bleeding however is not currently as noted above after application with cotton ball with Afrin and lidocaine with epinephrine Neck: Soft, supple, trachea midline Cardiovascular: Regular rate and rhythm no murmurs gallops rubs noted Respiratory: Clear to auscultation bilaterally no rales rhonchi wheeze noted Skin: Warm, dry, intact Neurologic: Patient following means that she was at [facility] 2023 After the gauze was removed from her right nares she was observed here in the emergency department and no active bleeding resumed. Patient was encouraged to follow-up with her primary care physician and the ears nose and throat team in the outpatient setting. Patient was encouraged to return with worsening symptoms or concerns she is agreeable with this plan she would like to go home she was discharged home in stable condition Plan: -Patient discharged home in stable condition with instructions to return with worsening symptoms or other concerns -She is encouraged to follow-up with her primary care physician in the outpatient setting Final impression: -Epistaxis on Eliquis Disposition: Patient will be stable in stable condition Supervising attending attestation: Shyam Larson D.O. Discharge Plan Triage Chief Complaint: Nosebleed ED Midlevel Provider: Samira Ross ED Provider: Shyam Larson Dx/Rx/DC Orders Clinical Impression: Epistaxis, Anticoagulant long-term use Instructions: ED Epistaxis (Adult) Prescriptions: No Action omega-3 fatty acids [Fish Oil Concentrate] 1,000 mg capsule 1,000 mg PO DAILY triamcinolone acetonide 0.5 % cream 1 applic topical DAILY PRN (Reason: psoriasis) acetaminophen 500 mg tablet 1,000 mg PO Q6H PRN (Reason: fever or pain) vitamin B complex Tablet 1 tab PO DAILY Adult 50 Plus Probiotic 4 billion cell capsule 4,000 mmu cells PO DAILY Rx Instructions: administer with a meal melatonin 3 mg capsule 3 mg PO HS PRN (Reason: sleep) biotin 1 mg tablet 1 mg PO DAILY psyllium husk [Daily Fiber] 0.4 gram capsule 0.4 g PO DAILY calcium carbonate-vitamin D3 1 EACH tablet 1 ea PO BID Patient Comments: SUPPLEMENT vit [id number] 1 EACH tablet 1 ea PO DAILY magnesium oxide 400 MG tablet 400 mg PO QHS omeprazole 20 MG capsule 20 mg PO DAILY Qty: 30 0RF ipratropium bromide 42 mcg (0.06 %) spray,non-aerosol 1 spray NASAL BID PRN (Reason: congestion) metoprolol tartrate 25 mg tablet 12.5 mg PO BID Eliquis 5 mg tablet 5 mg PO BID Patient Comments: take 1 tablet by mouth twice a day ibandronate 150 mg tablet 150 mg PO QMONTH Patient Comments: takes on 1st day of the month Primary Care Provider: Lucian Izquierdo Referrals: Angel Singh MD [Med Staff - Courtesy Staff] - Lucian Izquierdo MD [Primary Care Provider] - Activity Restrictions/Additional Instructions: If bleeding recurs hold direct pressure use the pinchers and leave on for at least 20 minutes without removing. If you cannot get bleeding to stop come back to the ER. Print Language: Finnish Disposition Disposition: Home, Self Care Discharge Date/Time: 01/26/24 16:28
[2024-01-26] MEDS: Oxymetazoline 0.05% 1 SPRAY SPRAY.BTL NASAL (13:26)
[2024-01-26] MEDS: Lidocaine 1% /Epi 1:100 (20ml) 20 ML Vial INFILT (13:26)
[2024-01-26 13:47] VITALS: BP 112/67; PULSE 77; RESP 15; O2SAT 96
[2024-01-26 15:17] VITALS: BP 109/65; PULSE 67; RESP 14; O2SAT 97
[2024-01-26 16:27] VITALS: BP 128/73; PULSE 69; RESP 17; TEMP 36.4; O2SAT 99
== END 2024-01-26 16:28 | disposition home or self-care (01) ==
PROVIDERS: Emergency Provider Emergency Medicine; PCP Family Medicine; Visit Provider Emergency Medicine
DX: R04.0 Epistaxis (principal); J44.9 Chronic obstructive pulmonary disease, unspecified; I48.21 Permanent atrial fibrillation; Z79.01 Long term (current) use of anticoagulants
CPT/HCPCS: 30901; 99282

== ENCOUNTER → 2024-02-21 | Outpatient (CLI) | payer MEDICARE, SELFPAY ==
[2024-02-21 17:28] LABS: Absolute Lymphocyte Count 0.83 X10^3/uL (0.83-4.51); Absolute Neutrophil Count 2.2 X10^3/uL (2.0-7.7); Basophil# 0.02 X10^3/uL; Basophil% 0.6 % (0-1); Eosinophil# 0.15 X10^3/uL; Eosinophils% 4.2 % (0-5); Hematocrit 38.9 % (37-47); Hemoglobin 12.2 g/dL (12.0-15.0); Lymphocyte # 0.83 X10^3/ul (0.83-4.51); Lymphocyte % 23.1 % (19-41); Mean Corp Hgb Conc 31.4 g/dL (32-36); Mean Corpuscular Hgb 30.2 pg (27.0-32.0); Mean Corpuscular Volume 96.3 fL (81-99); Mean Platelet Vol. 9.6 fl (6.2-12.0); Monocyte# 0.34 X10^3/uL; Monocyte% 9.5 % (0-10); NRBC Flagged by Analyzer 0 % (0-5); Neutrophil # 2.24 X10^3/uL (2.7-7.7); Neutrophil % 62.3 % (47-70); Platelet Count 190 K/mm3 (150-450); RBC Distribution Width CV 13.7 % (11.6-14.6); RBC Distribution Width SD 48.8 fl (35.1-43.9); Red Blood Count 4.04 M/mm3 (4.2-5.4); White Blood Count 3.6 K/mm3 (4.4-11.0)
[2024-02-21 18:01] LABS: Microalbumin,Random Urine < 5.0 mg/L (NO RANGE EST.)
[2024-02-21 18:10] LABS: ALB/GLOB Ratio 0.8 RATIO (0.9-2.4); AST(SGOT) 16 U/L (15-37); Alanine Aminotransfer ALT/SGPT 19 U/L (13-56); Alkaline Phosphatase 64 U/L (45-117); Anion Gap 4 (5-15); BUN 8 mg/dL (7-18); Chloride 104 mmol/L (98-107); Creatinine, Serum 0.67 mg/dL (0.55-1.02); EST Glomerular Filtration Rate 90 mL/min (>60); Est Glom Filt Rate - Afr Amer 108 mL/min (>60); Globulin 3.7 g/dL (2.2-4.2); Glucose 117 mg/dL (74-106); Potassium 4.1 mmol/L (3.5-5.1); Protein, Total 6.7 g/dL (6.4-8.2); Sodium Level 139 mmol/L (136-145); Thyroid Stim Hormone (TSH) 1.97 uIU/mL (0.358-3.74)
== END | disposition home or self-care (01) ==
PROVIDERS: PCP Family Medicine; Referring Provider Family Medicine; Visit Provider Family Medicine
DX: N18.2 Chronic kidney disease, stage 2 (mild) (principal); M85.80 Other specified disorders of bone density and structure, unspecified site
CPT/HCPCS: 80053; 82043; 82570; 84443; 85025

== ENCOUNTER → 2024-11-26 | Outpatient (CLI) | payer MEDICARE, SELFPAY ==
[2024-11-26 18:06] LABS: Absolute Neutrophil Count 3.7 X10^3/uL (2.0-7.7); Basophil# 0.02 X10^3/uL; Basophil% 0.4 % (0-1); Eosinophil# 0.11 X10^3/uL; Hematocrit 42.5 % (37-47); Hemoglobin 13.7 g/dL (12.0-15.0); Mean Corp Hgb Conc 32.2 g/dL (32-36); Mean Corpuscular Hgb 30.6 pg (27.0-32.0); Mean Corpuscular Volume 94.9 fL (81-99); Mean Platelet Vol. 10.1 fl (6.2-12.0); Monocyte% 7.3 % (0-10); NRBC Flagged by Analyzer 0 % (0-5); Neutrophil # 3.71 X10^3/uL (2.7-7.7); Neutrophil % 68.1 % (47-70); Platelet Count 187 K/mm3 (150-450); RBC Distribution Width CV 14.2 % (11.6-14.6); RBC Distribution Width SD 49.7 fl (35.1-43.9); Red Blood Count 4.48 M/mm3 (4.2-5.4); White Blood Count 5.5 K/mm3 (4.4-11.0)
[2024-11-26 18:52] LABS: ALB/GLOB Ratio 1.5 RATIO (0.9-2.4); AST(SGOT) 26 U/L (<=31); Alanine Aminotransfer ALT/SGPT 23 U/L (<=34); Albumin, Serum 4.1 g/dL (3.4-4.8); Alkaline Phosphatase 59 U/L (35-104); Anion Gap 9 (5-15); BUN 18 mg/dL (4-19); BUN/Creat Ratio 20.3 RATIO (10-20); Carbon Dioxide 30.4 mmol/L (21.0-32.0); Chloride 100 mmol/L (98-108); Creatinine, Serum 0.87 mg/dL (0.70-1.20); EST Glomerular Filtration Rate 65 (>60); Globulin 2.7 g/dL (2.2-4.2); Glucose 102 mg/dL (70-99); Potassium 4.4 mmol/L (3.3-5.1); Protein, Total 6.8 g/dL (5.9-8.4); Sodium Level 139 mmol/L (133-145); Total Bilirubin 1.57 mg/dL (0.00-1.30)
[2024-11-26 19:14] LABS: Hemoglobin A1c 5.3 % (<=5.6)
== END | disposition home or self-care (01) ==
LOC: MTLAB 16:47
PROVIDERS: PCP Family Medicine; Referring Provider Family Medicine; Visit Provider Family Medicine
DX: Z00.00 Encounter for general adult medical examination without abnormal findings (principal)
CPT/HCPCS: 36415; 80053; 83036; 85025

== ENCOUNTER → 2025-05-28 | Outpatient (CLI) | payer MEDICARE, SELFPAY ==
[2025-05-28 18:04] LABS: Hematocrit 40.7 % (37-47); Hemoglobin 13.3 g/dL (12.0-15.0); Immature Granulocytes Count 0.010 X10^3/uL (0.0-0.0); Mean Corp Hgb Conc 32.7 g/dL (32-36); Mean Corpuscular Volume 92.5 fL (81-99); Mean Platelet Vol. 10.4 fl (6.2-12.0); NRBC Flagged by Analyzer 0 % (0-5); Platelet Count 182 K/mm3 (150-450); RBC Distribution Width CV 14.8 % (11.6-14.6); RBC Distribution Width SD 50.8 fl (35.1-43.9); Red Blood Count 4.40 M/mm3 (4.2-5.4); White Blood Count 4.2 K/mm3 (4.4-11.0)
[2025-05-28 18:27] LABS: Creatinine, Urine (random) 49.50 mg/dL (28.00-217.00); Microalbumin,Random Urine 17.9 mg/L (<20 mg/L)
[2025-05-28 18:36] LABS: AST(SGOT) 24 U/L (<=31); Alanine Aminotransfer ALT/SGPT 24 U/L (<=34); Albumin, Serum 4.1 g/dL (3.4-4.8); Alkaline Phosphatase 62 U/L (35-104); Anion Gap 9 (5-15); BUN 15 mg/dL (4-19); BUN/Creat Ratio 19.6 RATIO (10-20); Calcium,Total 9.9 mg/dL (7.6-11.0); Carbon Dioxide 31.3 mmol/L (21.0-32.0); Chloride 99 mmol/L (98-108); Globulin 2.6 g/dL (2.2-4.2); Glucose 97 mg/dL (70-99); Magnesium 2.3 mg/dL (1.5-2.2); Potassium 3.8 mmol/L (3.3-5.1)
== END | disposition home or self-care (01) ==
LOC: MTLAB 14:19
PROVIDERS: PCP Family Medicine; Referring Provider Family Medicine; Visit Provider Family Medicine
DX: J44.9 Chronic obstructive pulmonary disease, unspecified (principal); I11.0 Hypertensive heart disease with heart failure; I50.9 Heart failure, unspecified; I48.20 Chronic atrial fibrillation, unspecified
CPT/HCPCS: 36415; 80053; 82043; 82570; 83735; 84443; 85025